=== PATIENT | female | born 1930 | race Caucasian/White ===

== ENCOUNTER 2019-01-04 04:57 | Emergency (ER) | payer MEDICARE ==
[2019-01-04] MEDS ORDERED: MORPHINE SULFATE 4 MG/ML SYRINGE IM STA (06:45)
--- NOTE | 2019-01-04 06:54 | XR ---
EXAM: XR Left Humerus, 2 or More Views CLINICAL HISTORY: patient fell TECHNIQUE: Frontal and lateral views of the left humerus. COMPARISON: No relevant prior studies available. FINDINGS: Bones/joints: Slightly comminuted and impacted fracture of the humeral neck. No dislocation. Diffuse demineralization of the bones. Deformities in the visualized upper left ribs likely chronic. Soft tissues: Unremarkable. IMPRESSION: Impacted comminuted humeral neck fracture. Diffuse osteopenia <MYCVCSECTION> Critical Value Communications 01/04/19 06:26 Verify Receipt Verified receipt with ER Clerk Mary for Dr. Cody on 01/04 06:26 (-05:00)
== END 2019-01-04 07:20 | disposition home or self-care (01) ==
LOC: EC 04:57
DX: S42.292A Other displaced fracture of upper end of left humerus, initial encounter for closed fracture (principal); W01.0XXA Fall on same level from slipping, tripping and stumbling without subsequent striking against object, initial encounter
CPT/HCPCS: 96372; 99283

== ENCOUNTER → 2019-01-08 | Outpatient (CLI) | payer MEDICARE ==
--- NOTE | 2019-01-08 08:22 | CT ---
EXAMINATION TYPE: CT shoulder LT wo con DATE OF EXAM: 01/08/2019 COMPARISON: None HISTORY: Left shoulder pain post fall. Known fracture. CT DLP: [address] of the left shoulder with reconstruction imaging. TECHNIQUE: Unenhanced CT of the left shoulder was performed with bone and soft tissue window settings submitted in the axial coronal and sagittal planes. At a separate workstation [id number] imaging was ob tained. FINDINGS: There is an impacted humeral neck fracture. Mild comminution noted. Fracture extends into the region of the greater tuberosity. Humeral head rotation noted. No additional fractures identified within the [id number]. Joint effusion identified. There is moderate AC joint arthropathy with lateral downsl oping of the acromion. No dislocation apparent. IMPRESSION: 1. Impacted right humeral neck fracture with greater tuberosity component and rotation humeral head.
== END ==
LOC: RADCTMAIN 07:27
PROVIDERS: ATTEND Orthopaedic Surgery
DX: S42.292A Other displaced fracture of upper end of left humerus, initial encounter for closed fracture (principal)

== ENCOUNTER 2019-07-07 05:02 | Inpatient (IN) | payer MEDICARE ==
--- NOTE | 2019-07-07 05:25 | ED ---
GI Bleed HPI - General Chief complaint: GI Bleed Stated complaint: GI Bleed Time Seen by Provider: 07/07/19 05:21 Source: patient Mode of arrival: ambulatory Limitations: no limitations - History of Present Illness Initial comments: This patient is an 88-year-old woman who presents to be evaluated for abdominal cramping and GI bleeding. The patient states that she had been out shopping and then about 6:30 PM noticed she was having abdominal cramping, which was diffuse and moderate intensity. When she returned home she started having a number of rounds of diarrhea and then noticed that there was some bright red blood that she was passing as well. She states this happened approximately 4 times. She has not noted any dark blood or clots. The patient denies symptoms of anemia, including no chest pain, dyspnea, diaphoresis, lightheadedness, palpitations or syncope. MD complaint: gross hematochezia -: hour(s) Radiation: none Quality: cramping Consistency: colicky Improves with: none Worsens with: none Associated Symptoms: abdominal pain - Related Data Home Medications Medication Instructions Recorded Confirmed Acarbose [Precose] 25 mg PO DAILY 07/07/19 07/07/19 Ezetimibe [Zetia] 10 mg PO DAILY 07/07/19 07/07/19 Pioglitazone [Actos] 30 mg PO DAILY 07/07/19 07/07/19 sitaGLIPtin [Januvia] 50 mg PO DAILY 07/07/19 07/07/19 Allergies Allergy/AdvReac Type Severity Reaction Status Date / Time No Known Allergies Allergy Verified 07/07/19 07:31 Review of Systems ROS Statement: Those systems with pertinent positive or pertinent negative responses have been documented in the HPI. ROS Other: All systems not noted in ROS Statement are negative. Constitutional: Denies: fever, chills, weakness Respiratory: Denies: cough, dyspnea Cardiovascular: Denies: chest pain, palpitations, syncope Gastrointestinal: Reports: abdominal pain, diarrhea, hematochezia. Denies: nausea, vomiting, hematemesis, melena Genitourinary: Denies: dysuria, hematuria Musculoskeletal: Denies: back pain Skin: Denies: rash Neurological: Denies: headache Hematological/Lymphatic: Denies: easy bleeding Past Medical History Past Medical History: Diabetes Mellitus History of Any Multi-Drug Resistant Organisms: None Reported Past Surgical History: No Surgical Hx Reported Past Psychological History: No Psychological Hx Reported Smoking Status: Never smoker Past Alcohol Use History: None Reported Past Drug Use History: None Reported - Past Family History Mother Family Medical History: Cancer Father Family Medical History: Cancer General Exam Limitations: no limitations General appearance: alert, in no apparent distress Head exam: Present: atraumatic, normocephalic Eye exam: Present: normal appearance. Absent: scleral icterus, conjunctival injection ENT exam: Present: normal oropharynx Respiratory exam: Present: normal lung sounds bilaterally. Absent: respiratory distress, wheezes, rales, rhonchi, stridor Cardiovascular Exam: Present: regular rate, normal rhythm, normal heart sounds. Absent: systolic murmur, diastolic murmur, rubs, gallop GI/Abdominal exam: Present: soft. Absent: distended, tenderness, guarding, rebound, rigid, mass Rectal exam: Present: normal inspection, normal rectal tone, heme (+) stool. Absent: mass, tenderness Extremities exam: Present: normal inspection, normal capillary refill. Absent: pedal edema, calf tenderness Back exam: Present: normal inspection. Absent: CVA tenderness (R), CVA tenderness (L) Skin exam: Present: warm, dry, intact, normal color. Absent: rash Course Vital Signs 07/07/19 07/07/19 07/07/19 05:07 05:23 05:30 Temperature 97.6 F Pulse Rate 90 87 92 Respiratory 18 13 6 L Rate Blood Pressure 153/95 O2 Sat by Pulse 100 Oximetry 07/07/19 07/07/19 07/07/19 06:00 06:21 06:30 Temperature 97.6 F Pulse Rate 75 81 79 Respiratory 15 18 14 Rate Blood Pressure 137/64 137/64 O2 Sat by Pulse 96 97 Oximetry 07/07/19 07/07/19 07/07/19 07:00 07:30 07:36 Temperature Pulse Rate 87 80 Respiratory 17 21 18 Rate Blood Pressure 137/64 138/59 139/59 O2 Sat by Pulse 98 97 97 Oximetry 07/07/19 07/07/19 07/07/19 08:00 08:30 09:00 Temperature Pulse Rate 80 73 75 Respiratory 20 16 14 Rate Blood Pressure 138/59 126/59 126/59 O2 Sat by Pulse 97 97 96 Oximetry 09/07/19 09/07/19 09/07/19 09:30 10:00 10:30 Temperature Pulse Rate 75 75 77 Respiratory 14 31 H 8 L Rate Blood Pressure 125/56 125/56 112/50 O2 Sat by Pulse 98 96 96 Oximetry 07/07/19 07/07/19 07/07/19 10:37 11:00 11:30 Temperature Pulse Rate 77 74 71 Respiratory 8 L 14 13 Rate Blood Pressure 112/50 112/50 111/49 O2 Sat by Pulse 96 95 97 Oximetry 07/07/19 11:51 Temperature Pulse Rate 77 Respiratory 8 L Rate Blood Pressure 112/50 O2 Sat by Pulse 96 Oximetry Medical Decision Making - Lab Data Result diagrams: 07/07/19 05:30 07/07/19 05:30 Lab Results 07/07/19 07/07/19 07/07/19 Range/Units 05:30 05:30 05:30 WBC 7.9 (3.8-10.6) k/uL RBC 4.06 (3.80-5.40) m/uL Hgb 13.0 (11.4-16.0) gm/dL Hct 38.9 (34.0-46.0) % MCV 95.9 (80.0-100.0) fL MCH 32.0 (25.0-35.0) pg MCHC 33.3 (31.0-37.0) g/dL RDW 15.4 (11.5-15.5) % Plt Count 179 (150-450) k/uL Neutrophils % 87 % Lymphocytes % 5 % Monocytes % 5 % Eosinophils % 1 % Basophils % 1 % Neutrophils # 6.9 (1.3-7.7) k/uL Lymphocytes # 0.4 L (1.0-4.8) k/uL Monocytes # 0.4 (0-1.0) k/uL Eosinophils # 0.1 (0-0.7) k/uL Basophils # 0.0 (0-0.2) k/uL PT (9.0-12.0) sec INR (<1.2) APTT (22.0-30.0) sec Sodium 137 (137-145) mmol/L Potassium 4.1 (3.5-5.1) mmol/L Chloride 99 (98-107) mmol/L Carbon Dioxide 26 (22-30) mmol/L Anion Gap 12 mmol/L BUN 21 H (7-17) mg/dL Creatinine 0.61 (0.52-1.04) mg/dL Est GFR (CKD-EPI)AfAm >90 (>60 ml/min/1.73 sqM) Est GFR (CKD-EPI)NonAf 82 (>60 ml/min/1.73 sqM) Glucose 262 H (74-99) mg/dL Plasma Lactic Acid Kd (0.7-2.0) mmol/L Calcium 10.1 (8.4-10.2) mg/dL Total Bilirubin 0.6 (0.2-1.3) mg/dL AST 27 (14-36) U/L ALT 26 (9-52) U/L Alkaline Phosphatase 59 (38-126) U/L Troponin I (0.000-0.034) ng/mL Total Protein 7.3 (6.3-8.2) g/dL Albumin 4.4 (3.5-5.0) g/dL Stool Occult Blood (Negative) Blood Type A Negative Blood Type Confirm Blood Type Recheck No Previous Record Bld Type Recheck Status CABO Indicated Antibody Screen POSITIVE Antibody Identification Anti-D Antigen Identification C Antigen - NEGATIVE Direct Antiglob Test Negative Spec Expiration Date 07/10/2019232907/07/19 07/07/19 07/07/19 Range/Units 05:30 05:30 05:30 WBC (3.8-10.6) k/uL RBC (3.80-5.40) m/uL Hgb (11.4-16.0) gm/dL Hct (34.0-46.0) % MCV (80.0-100.0) fL MCH (25.0-35.0) pg MCHC (31.0-37.0) g/dL RDW (11.5-15.5) % Plt Count (150-450) k/uL Neutrophils % % Lymphocytes % % Monocytes % % Eosinophils % % Basophils % % Neutrophils # (1.3-7.7) k/uL Lymphocytes # (1.0-4.8) k/uL Monocytes # (0-1.0) k/uL Eosinophils # (0-0.7) k/uL Basophils # (0-0.2) k/uL PT 10.9 (9.0-12.0) sec INR 1.0 (<1.2) APTT 23.9 (22.0-30.0) sec Sodium (137-145) mmol/L Potassium (3.5-5.1) mmol/L Chloride (98-107) mmol/L Carbon Dioxide (22-30) mmol/L Anion Gap mmol/L BUN (7-17) mg/dL Creatinine (0.52-1.04) mg/dL Est GFR (CKD-EPI)AfAm (>60 ml/min/1.73 sqM) Est GFR (CKD-EPI)NonAf (>60 ml/min/1.73 sqM) Glucose (74-99) mg/dL Plasma Lactic Acid Kd 2.0 (0.7-2.0) mmol/L Calcium (8.4-10.2) mg/dL Total Bilirubin (0.2-1.3) mg/dL AST (14-36) U/L ALT (9-52) U/L Alkaline Phosphatase (38-126) U/L Troponin I <0.012 (0.000-0.034) ng/mL Total Protein (6.3-8.2) g/dL Albumin (3.5-5.0) g/dL Stool Occult Blood (Negative) Blood Type Blood Type Confirm Blood Type Recheck Bld Type Recheck Status Antibody Screen Antibody Identification Antigen Identification Direct Antiglob Test Spec Expiration Date 07/07/19 07/07/19 Range/Units 05:33 05:45 WBC (3.8-10.6) k/uL RBC (3.80-5.40) m/uL Hgb (11.4-16.0) gm/dL Hct (34.0-46.0) % MCV (80.0-100.0) fL MCH (25.0-35.0) pg MCHC (31.0-37.0) g/dL RDW (11.5-15.5) % Plt Count (150-450) k/uL Neutrophils % % Lymphocytes % % Monocytes % % Eosinophils % % Basophils % % Neutrophils # (1.3-7.7) k/uL Lymphocytes # (1.0-4.8) k/uL Monocytes # (0-1.0) k/uL Eosinophils # (0-0.7) k/uL Basophils # (0-0.2) k/uL PT (9.0-12.0) sec INR (<1.2) APTT (22.0-30.0) sec Sodium (137-145) mmol/L Potassium (3.5-5.1) mmol/L Chloride (98-107) mmol/L Carbon Dioxide (22-30) mmol/L Anion Gap mmol/L BUN (7-17) mg/dL Creatinine (0.52-1.04) mg/dL Est GFR (CKD-EPI)AfAm (>60 ml/min/1.73 sqM) Est GFR (CKD-EPI)NonAf (>60 ml/min/1.73 sqM) Glucose (74-99) mg/dL Plasma Lactic Acid Kd (0.7-2.0) mmol/L Calcium (8.4-10.2) mg/dL Total Bilirubin (0.2-1.3) mg/dL AST (14-36) U/L ALT (9-52) U/L Alkaline Phosphatase (38-126) U/L Troponin I (0.000-0.034) ng/mL Total Protein (6.3-8.2) g/dL Albumin (3.5-5.0) g/dL Stool Occult Blood Positive H (Negative) Blood Type Blood Type Confirm A Negative Blood Type Recheck Bld Type Recheck Status Antibody Screen Antibody Identification Antigen Identification Direct Antiglob Test Spec Expiration Date - EKG Data -: EKG Interpreted by Oh EKG shows normal: sinus rhythm, axis (Normal), intervals (Normal), QRS complexes (Normal), ST-T waves (Normal) Rate: normal (94 bpm) Interpretation: normal EKG Disposition Clinical Impression: Gastrointestinal hemorrhage Disposition: ADMITTED IP TO THIS [facility] Condition: Fair
[2019-07-07 06:00] LABS: Basophils % (A) 1 %; Eosinophils # (A) 0.1 k/uL (0-0.7); Eosinophils % (A) 1 %; HCT 38.9 % (34.0-46.0); Lymphocytes # (A) 0.4 k/uL (1.0-4.8); Lymphocytes % (A) 5 %; MCHC 33.3 g/dL (31.0-37.0); MCV 95.9 fL (80.0-100.0); Mean Platelet Volume 7.7; Monocytes # (A) 0.4 k/uL (0-1.0); Monocytes % (A) 5 %; Neutrophils # (A) 6.9 k/uL (1.3-7.7); Neutrophils % (A) 87 %; Platelet Count 179 k/uL (150-450); RBC 4.06 m/uL (3.80-5.40); RDW 15.4 % (11.5-15.5); WBC 7.9 k/uL (3.8-10.6)
[2019-07-07 06:13] LABS: ALT 26 U/L (9-52); AST 27 U/L (14-36); African American GFR (CKD) >90 (>60 ml/min/1.73 sqM); Albumin 4.4 g/dL (3.5-5.0); Alkaline Phosphatase 59 U/L (38-126); Anion Gap 12 mmol/L; Blood Urea Nitrogen 21 mg/dL (7-17); Calcium 10.1 mg/dL (8.4-10.2); Carbon Dioxide 26 mmol/L (22-30); Chloride 99 mmol/L (98-107); Glucose 262 mg/dL (74-99); Potassium 4.1 mmol/L (3.5-5.1); Sodium 137 mmol/L (137-145); Total Bilirubin 0.6 mg/dL (0.2-1.3); Total Protein 7.3 g/dL (6.3-8.2)
[2019-07-07 06:20] LABS: Partial Thromboplastin Time 23.9 sec (22.0-30.0); Prothrombin Time 10.9 sec (9.0-12.0)
[2019-07-07] MEDS ORDERED: ONDANSETRON 4 MG/2 ML VIAL IVP PRN (07:08)
[2019-07-07] MEDS ORDERED: ACETAMINOPHEN TAB 325 MG TAB PO PRN (07:08)
[2019-07-07] MEDS ORDERED: NALOXONE 0.4 MG/ML 1 ML VIAL IV PRN (07:08)
[2019-07-07] MEDS ORDERED: MORPHINE SULFATE 4 MG/ML SYRINGE IV PRN (07:08)
[2019-07-07] MEDS: SODIUM CHLORIDE 0.9% 1,000 ML IV SCH ×2 (10:30→18:05)
[2019-07-07] MEDS: PANTOPRAZOLE 40 MG/10 ML VIAL IV SCH (10:32)
[2019-07-07 13:22] LABS: Glucose,Whole Blood 128 mg/dL (75-99)
[2019-07-07 13:26] VITALS: RESP 16
[2019-07-07 17:42] LABS: Glucose,Whole Blood 128 mg/dL (75-99)
[2019-07-07] MEDS: INSULIN ASPART (NovoLOG) 100 UNIT/ML VIAL SQ SCH ×2 (17:48→21:03)
[2019-07-07 20:56] LABS: Glucose,Whole Blood 191 mg/dL (75-99)
[2019-07-08] MEDS: SODIUM CHLORIDE 0.9% 1,000 ML IV SCH ×2 (04:42→13:00)
[2019-07-08 07:21] LABS: Glucose,Whole Blood 110 mg/dL (75-99)
[2019-07-08] MEDS: INSULIN ASPART (NovoLOG) 100 UNIT/ML VIAL SQ SCH ×4 (07:48→21:24)
[2019-07-08] MEDS: PANTOPRAZOLE 40 MG/10 ML VIAL IV SCH (07:54)
[2019-07-08 08:51] LABS: Basophils % (A) 0 %; Eosinophils # (A) 0.1 k/uL (0-0.7); Eosinophils % (A) 2 %; HCT 37.3 % (34.0-46.0); Lymphocytes # (A) 0.7 k/uL (1.0-4.8); Lymphocytes % (A) 10 %; MCH 31.5 pg (25.0-35.0); MCHC 32.1 g/dL (31.0-37.0); MCV 98.3 fL (80.0-100.0); Macrocytosis Slight; Mean Platelet Volume 7.7; Monocytes # (A) 0.4 k/uL (0-1.0); Monocytes % (A) 5 %; Neutrophils # (A) 6.3 k/uL (1.3-7.7); Neutrophils % (A) 82 %; Platelet Count 177 k/uL (150-450); RBC 3.79 m/uL (3.80-5.40); RDW 15.6 % (11.5-15.5); WBC 7.7 k/uL (3.8-10.6)
[2019-07-08 09:00] LABS: African American GFR (CKD) >90 (>60 ml/min/1.73 sqM); Anion Gap 7 mmol/L; Blood Urea Nitrogen 13 mg/dL (7-17); Calcium 9.1 mg/dL (8.4-10.2); Carbon Dioxide 27 mmol/L (22-30); Chloride 108 mmol/L (98-107); Glucose 150 mg/dL (74-99); Potassium 3.8 mmol/L (3.5-5.1); Sodium 142 mmol/L (137-145)
[2019-07-08 11:45] LABS: Glucose,Whole Blood 229 mg/dL (75-99)
--- NOTE | 2019-07-08 12:44 | P.HPIM ---
History of Present Illness H&P Date: 07/07/19 Chief Complaint: Abdominal cramps/hematochezia 88-year-old woman who presents to be evaluated for abdominal cramping and GI bleeding. The patient states that she had been out shopping and then about 6:30 PM noticed she was having abdominal cramping, which was diffuse and moderate intensity. When she returned home she started having a number of rounds of diarrhea and then noticed that there was some bright red blood that she was passing as well. She states this happened approximately 4 times. She has not noted any dark blood or clots. The patient denies symptoms of anemia, including no chest pain, dyspnea, diaphoresis, lightheadedness, palpitations or synco Review of Systems Constitutional: Denies: fever, chills, weakness Respiratory: Denies: cough, dyspnea Cardiovascular: Denies: chest pain, palpitations, syncope Gastrointestinal: Reports: abdominal pain, diarrhea, hematochezia. Denies: nausea, vomiting, hematemesis, melena Genitourinary: Denies: dysuria, hematuria Musculoskeletal: Denies: back pain Skin: Denies: rash Neurological: Denies: headache Hematological/Lymphatic: Denies: easy bleeding Past Medical History Past Medical History: Diabetes Mellitus History of Any Multi-Drug Resistant Organisms: None Reported Past Surgical History: No Surgical Hx Reported Past Psychological History: No Psychological Hx Reported Smoking Status: Never smoker Past Alcohol Use History: None Reported Past Drug Use History: None Reported - Past Family History Mother Family Medical History: Cancer Father Family Medical History: Cancer Medications and Allergies Home Medications Medication Instructions Recorded Confirmed Type Acarbose [Precose] 25 mg PO DAILY 07/07/19 07/07/19 History Ezetimibe [Zetia] 10 mg PO DAILY 07/07/19 07/07/19 History Pioglitazone [Actos] 30 mg PO DAILY 07/07/19 07/07/19 History sitaGLIPtin [Januvia] 50 mg PO DAILY 07/07/19 07/07/19 History Allergies Allergy/AdvReac Type Severity Reaction Status Date / Time No Known Allergies Allergy Verified 07/07/19 07:31 Physical Exam Vitals: Vital Signs Temp Pulse Resp BP Pulse Ox 07/07/19 11:51 77 8 L 112/50 96 07/07/19 11:30 71 13 111/49 97 07/07/19 11:00 74 14 112/50 95 07/07/19 10:37 77 8 L 112/50 96 07/07/19 10:30 77 8 L 112/50 96 07/07/19 10:00 75 31 H 125/56 96 07/07/19 09:30 75 14 125/56 98 07/07/19 09:00 75 14 126/59 96 07/07/19 08:30 73 16 126/59 97 07/07/19 08:00 80 20 138/59 97 07/07/19 07:36 80 18 139/59 97 07/07/19 07:30 21 138/59 97 07/07/19 07:00 87 17 137/64 98 07/07/19 06:30 79 14 137/64 97 07/07/19 06:21 97.6 F 81 18 137/64 96 07/07/19 06:00 75 15 07/07/19 05:30 92 6 L 07/07/19 05:23 87 13 07/07/19 05:07 97.6 F 90 18 153/95 100 Intake and Output 07/06/19 07/07/19 07/07/19 22:59 06:59 14:59 Other: Weight 55.338 kg General appearance: alert, in no apparent distress Head exam: Present: atraumatic, normocephalic Eye exam: Present: normal appearance. Absent: scleral icterus, conjunctival injection ENT exam: Present: normal oropharynx Respiratory exam: Present: normal lung sounds bilaterally. Absent: respiratory distress, wheezes, rales, rhonchi, stridor Cardiovascular Exam: Present: regular rate, normal rhythm, normal heart sounds. Absent: systolic murmur, diastolic murmur, rubs, gallop GI/Abdominal exam: Present: soft. Absent: distended, tenderness, guarding, rebound, rigid, mass Rectal exam: Present: normal inspection, normal rectal tone, heme (+) stool. Absent: mass, tenderness Extremities exam: Present: normal inspection, normal capillary refill. Absent: pedal edema, calf tenderness Back exam: Present: normal inspection. Absent: CVA tenderness (R), CVA tenderness (L) Skin exam: Present: warm, dry, intact, normal color. Absent: rash Results CBC & Chem 7: 07/08/19 08:14 07/08/19 08:14 Labs: Abnormal Lab Results - Last 24 Hours (Table) 07/07/19 07/07/19 07/07/19 Range/Units 05:30 05:30 05:45 Lymphocytes # 0.4 L (1.0-4.8) k/uL BUN 21 H (7-17) mg/dL Glucose 262 H (74-99) mg/dL Stool Occult Blood Positive H (Negative) Assessment and Plan Assessment: 1. GI bleed - Start patient on Protonix 40 mg IV daily; monitor H&H closely; consult GI for further recommendations - Type crossmatch and transfuse packed RBCs if hemoglobin is less than 8.0 2. Diabetes mellitus type 2/hyperglycemia - We will restart home dose of Tradjent, Precose 25 mg before meals breakfast and Actos; monitor Accu-Cheks every before meals and at bedtime with insulin sliding scale 3. Hyperlipidemia; Zetia 10 mg daily at bedtime 4. Mild renal insufficiency; continue with IV fluids in form of normal saline at a rate of 100 mL an hour; monitor strict VICENTE's, renal function and electrolytes; avoid hypotension and nephrotoxins 5. DVT prophylaxis; SCDs only due to GI bleed CODE STATUS; full code Time with Patient: Greater than 30
[2019-07-08 14:44] LABS: Basophils % (A) 0 %; Eosinophils % (A) 1 %; HCT 32.6 % (34.0-46.0); HGB 10.7 gm/dL (11.4-16.0); Lymphocytes # (A) 0.9 k/uL (1.0-4.8); Lymphocytes % (A) 13 %; MCH 31.7 pg (25.0-35.0); MCHC 32.7 g/dL (31.0-37.0); MCV 96.8 fL (80.0-100.0); Mean Platelet Volume 8.2; Monocytes # (A) 0.4 k/uL (0-1.0); Monocytes % (A) 6 %; Neutrophils # (A) 5.1 k/uL (1.3-7.7); Neutrophils % (A) 79 %; Platelet Count 142 k/uL (150-450); RBC 3.37 m/uL (3.80-5.40); RDW 14.5 % (11.5-15.5); WBC 6.5 k/uL (3.8-10.6)
--- NOTE | 2019-07-08 16:40 | P.PN ---
Subjective Progress Note Date: 07/08/19 Principal diagnosis: GI bleed 88-year-old woman who presents to be evaluated for abdominal cramping and GI bleeding. The patient states that she had been out shopping and then about 6:30 PM noticed she was having abdominal cramping, which was diffuse and moderate intensity. When she returned home she started having a number of rounds of diarrhea and then noticed that there was some bright red blood that she was passing as well. She states this happened approximately 4 times. She has not noted any dark blood or clots. 07/08/2019 Patient is seen and evaluated in the room at bedside; continues to have small amounts of bloody bowel movements vital signs are stable with a temp of 98, pulse 82, respirations 16 and blood pressure of 124/67 Labs are reviewed and patient demonstrated drop of hemoglobin from 12.0 this morning to 10.7 We will continue to monitor H&H every 6 hours and type crossmatch and transfuse if hemoglobin is less than 8; GI is on board and no plan for EGD/colonoscopy; GI felt evaluate again tomorrow for further recommendations Patient remains on IV Protonix Objective - Vital Signs Vital signs: Vital Signs Temp 97.8 F 07/08/19 07:00 Pulse 76 07/08/19 07:00 Resp 16 07/08/19 07:00 BP 119/63 07/08/19 07:00 Pulse Ox 99 07/08/19 07:00 Intake & Output 07/07/19 07/08/19 07/08/19 18:59 06:59 18:59 Intake Total 580 Output Total 2 Balance -2 580 Intake: Oral 580 Output: Stool 2 Other: # Voids 2 3 1 # Bowel Movements 2 1 - Exam Head exam: Present: atraumatic, normocephalic Eye exam: Present: normal appearance. Absent: scleral icterus, conjunctival injection ENT exam: Present: normal oropharynx Respiratory exam: Present: normal lung sounds bilaterally. Absent: respiratory distress, wheezes, rales, rhonchi, stridor Cardiovascular Exam: Present: regular rate, normal rhythm, normal heart sounds. Absent: systolic murmur, diastolic murmur, rubs, gallop GI/Abdominal exam: Present: soft. Absent: distended, tenderness, guarding, rebound, rigid, mass Rectal exam: Present: normal inspection, normal rectal tone, heme (+) stool. Absent: mass, tenderness Extremities exam: Present: normal inspection, normal capillary refill. Absent: pedal edema, calf tenderness Back exam: Present: normal inspection. Absent: CVA tenderness (R), CVA tenderness (L) Skin exam: Present: warm, dry, intact, normal color. Absent: rash - Labs CBC & Chem 7: 07/08/19 14:26 07/08/19 08:14 Labs: Abnormal Lab Results - Last 24 Hours (Table) 07/07/19 07/07/19 07/07/19 Range/Units 13:05 17:09 20:52 RBC (3.80-5.40) m/uL RDW (11.5-15.5) % Lymphocytes # (1.0-4.8) k/uL Chloride (98-107) mmol/L Glucose (74-99) mg/dL POC Glucose (mg/dL) 128 H 128 H 191 H (75-99) mg/dL 07/08/19 07/08/19 07/08/19 Range/Units 07:04 08:14 08:14 RBC 3.79 L (3.80-5.40) m/uL RDW 15.6 H (11.5-15.5) % Lymphocytes # 0.7 L (1.0-4.8) k/uL Chloride 108 H (98-107) mmol/L Glucose 150 H (74-99) mg/dL POC Glucose (mg/dL) 110 H (75-99) mg/dL 07/08/19 Range/Units 11:28 RBC (3.80-5.40) m/uL RDW (11.5-15.5) % Lymphocytes # (1.0-4.8) k/uL Chloride (98-107) mmol/L Glucose (74-99) mg/dL POC Glucose (mg/dL) 229 H (75-99) mg/dL Assessment and Plan Assessment: 1. GI bleed - Start patient on Protonix 40 mg IV daily; monitor H&H closely; consult GI for further recommendations - Type crossmatch and transfuse packed RBCs if hemoglobin is less than 8.0 2. Diabetes mellitus type 2/hyperglycemia - We will restart home dose of Tradjent, Precose 25 mg before meals breakfast and Actos; monitor Accu-Cheks every before meals and at bedtime with insulin sliding scale 3. Hyperlipidemia; Zetia 10 mg daily at bedtime 4. Mild renal insufficiency; continue with IV fluids in form of normal saline at a rate of 100 mL an hour; monitor strict VICENTE's, renal function and electrolytes; avoid hypotension and nephrotoxins 5. DVT prophylaxis; SCDs only due to GI bleed CODE STATUS; full code Time with Patient: Greater than 30
[2019-07-08 17:19] LABS: Glucose,Whole Blood 92 mg/dL (75-99)
--- NOTE | 2019-07-08 17:59 | P.CONS ---
History of Present Illness - Reason for Consult Consult date: 07/07/19 Blood per rectum Requesting physician: Robb Jovel - Chief Complaint Blood per rectum - History of Present Illness 88-year-old female with a medical history significant for hyperlipidemia, diabetes mellitus who presents to the hospital with complaints of blood. The patient reports constipation at her baseline and initially passed a hard bowel movement. This was followed by multiple episodes of loose nonbloody stool. After this she reports 2 episodes of bright red blood prior to presentation to the hospital. At home she is on low-dose aspirin but denies any use of other NSAID medications and will occasionally take Tylenol as needed for pain. She does report family history of bowel cancer in her mother and pancreatic cancer in her father. She also reports a remote history of colonoscopy approximately 10 years ago. She denies any abdominal pain but did have some cramping prior to the bowel movements. No prior EGD reported. Hemoglobin on presentation was 13 and subsequently found to be 12. She reports some darker bowel movements after presentation but no further gross bleeding. Review of Systems REVIEW OF SYSTEMS: CONSTITUTIONAL: Denies any fevers, chills, weight change or fatigue. CARDIOVASCULAR: Denies any chest pain, palpitations high or low blood pressures RESPIRATORY: Denies any shortness of breath, hemoptysis or cough. GENITOURINARY: No dysuria or hematuria, but does report history of cystocele. MUSCULOSKELETAL: No weakness reported. SKIN: Denies any new rashes or lesions, jaundice or pallor. PSYCHIATRIC: Denies any depression or anxiety. NEUROLOGY: Denies headache, denies any new focal deficits. EARS/NOSE/THROAT: No recent hearing change, congestion, nasal discharge or sore throat. EYES: No pain in eyes, discharge or change in vision. GASTROINTESTINAL: As per HPI. Past Medical History Past Medical History: Cancer, Diabetes Mellitus, Hyperlipidemia Additional Past Medical History / Comment(s): skin CA History of Any Multi-Drug Resistant Organisms: None Reported Past Surgical History: Appendectomy, Heart Catheterization, Hysterectomy Additional Past Surgical History / Comment(s): skin CA removal. Past Anesthesia/Blood Transfusion Reactions: No Reported Reaction Past Psychological History: No Psychological Hx Reported Smoking Status: Never smoker Past Alcohol Use History: None Reported Past Drug Use History: None Reported - Past Family History Mother Family Medical History: Cancer Father Family Medical History: Cancer Medications and Allergies Home Medications Medication Instructions Recorded Confirmed Type Acarbose [Precose] 25 mg PO DAILY 07/07/19 07/07/19 History Ezetimibe [Zetia] 10 mg PO DAILY 07/07/19 07/07/19 History Pioglitazone [Actos] 30 mg PO DAILY 07/07/19 07/07/19 History sitaGLIPtin [Januvia] 50 mg PO DAILY 07/07/19 07/07/19 History Allergies Allergy/AdvReac Type Severity Reaction Status Date / Time No Known Allergies Allergy Verified 07/07/19 07:31 Physical Exam Vitals: Vital Signs Temp Pulse Pulse Resp BP BP Pulse Ox 07/07/19 18:33 98.4 F 77 16 112/50 98 07/07/19 13:03 98.4 F 83 16 133/70 98 07/07/19 11:51 77 8 L 112/50 96 07/07/19 11:30 71 13 111/49 97 07/07/19 11:00 74 14 112/50 95 07/07/19 10:37 77 8 L 112/50 96 07/07/19 10:30 77 8 L 112/50 96 07/07/19 10:00 75 31 H 125/56 96 07/07/19 09:30 75 14 125/56 98 07/07/19 09:00 75 14 126/59 96 07/07/19 08:30 73 16 126/59 97 07/07/19 08:00 80 20 138/59 97 07/07/19 07:36 80 18 139/59 97 07/07/19 07:30 21 138/59 97 07/07/19 07:00 87 17 137/64 98 07/07/19 06:30 79 14 137/64 97 07/07/19 06:21 97.6 F 81 18 137/64 96 07/07/19 06:00 75 15 07/07/19 05:30 92 6 L 07/07/19 05:23 87 13 07/07/19 05:07 97.6 F 90 18 153/95 100 Intake and Output 07/07/19 07/07/19 07/08/19 14:59 22:59 06:59 Other: # Voids 1 2 # Bowel Movements 2 On physical examination, patient appears comfortable in no apparent distress. HEAD: Normocephalic, atraumatic. EYES: No scleral icterus. No conjunctival injection. MOUTH: No lesions, tongue midline. NECK: Trachea midline, no gross abnormalities. CHEST: Clear to auscultation with no wheezing or rhonchi appreciated. HEART: Regular rate and rhythm. ABDOMEN: Soft. Bowel sounds are positive. No organomegaly. No guarding or rigidity. EXTREMITIES: No pedal edema. SKIN: No rashes, no jaundice. NEUROLOGIC: Alert and oriented x3. No focal deficits. Results CBC & Chem 7: 07/08/19 14:26 07/08/19 08:14 Labs: Abnormal Lab Results - Last 24 Hours (Table) 07/07/19 07/07/19 07/07/19 Range/Units 05:30 05:30 05:45 Lymphocytes # 0.4 L (1.0-4.8) k/uL BUN 21 H (7-17) mg/dL Glucose 262 H (74-99) mg/dL POC Glucose (mg/dL) (75-99) mg/dL Stool Occult Blood Positive H (Negative) 07/07/19 07/07/19 07/07/19 Range/Units 13:05 17:09 20:52 Lymphocytes # (1.0-4.8) k/uL BUN (7-17) mg/dL Glucose (74-99) mg/dL POC Glucose (mg/dL) 128 H 128 H 191 H (75-99) mg/dL Stool Occult Blood (Negative) Assessment and Plan (1) Gastrointestinal hemorrhage Narrative/Plan: 88-year-old female who presented after initially passing a hard stool, then loose stool, and then 2 episodes of gross bright red blood per rectum. She denies any prior episodes, excessive use of NSAID medications reporting that she'll only takes a low dose aspirin, or any pain with the episode stating she only had some cramping. Last colonoscopy approximately 10 years ago. She does have concerns over having further endoscopic evaluations given a cystocele. At baseline she reports chronic constipation. Hemoglobin was 13 on presentation and subsequently found to be 12. Overall presentation is suspicious for p erirectal disease, differential also including AVM, diverticulosis or other etiology. Current Visit: Yes Status: Acute Code(s): K92.2 - GASTROINTESTINAL HEMORRHAGE, UNSPECIFIED SNOMED Code(s): 84067484 (2) Altered bowel function Current Visit: Yes Status: Acute Code(s): R19.8 - OTH SYMPTOMS AND SIGNS INVOLVING THE DGSTV SYS AND ABDOMEN SNOMED Code(s): 68504003 (3) Chronic constipation Current Visit: Yes Status: Acute Code(s): K59.09 - OTHER CONSTIPATION SNOMED Code(s): 153020987 Plan: Supportive care Okay for liquid diet Continue to monitor hemoglobin and transfuse as needed Testing for Clostridium difficile negative Will start local hemorrhoidal treatment with Anusol nightly Eventually patient will need bowel regimen on discharge, with recommendation for MiraLAX nightly At this time patient is not interested in endoscopic evaluation and would like to continue with conservative management, however if bleeding continues we will reevaluate at that time Thank you for allowing us to participate in the care of the patient, we will continue to follow
--- NOTE | 2019-07-08 18:04 | P.PN ---
Subjective Progress Note Date: 07/08/19 Principal diagnosis: Hematochezia, anemia of acute blood loss Gross blood per rectum but did have some maroon colored to dark stool today with 2 episodes reported. Objective - Vital Signs Vital signs: Vital Signs Temp 98.0 F 07/08/19 13:08 Pulse 82 07/08/19 15:52 Resp 16 07/08/19 15:52 BP 124/67 07/08/19 13:08 Pulse Ox 97 07/08/19 13:08 Intake & Output 07/07/19 07/08/19 07/08/19 18:59 06:59 18:59 Intake Total 980 Output Total 2 2 Balance -2 978 Intake: Oral 980 Output: Stool 2 2 Other: # Voids 2 3 1 # Bowel Movements 2 2 - Exam On physical examination, patient appears comfortable in no apparent distress. HEAD: Normocephalic, atraumatic. EYES: No scleral icterus. No conjunctival injection. MOUTH: No lesions, tongue midline. NECK: Trachea midline, no gross abnormalities. CHEST: Clear to auscultation with no wheezing or rhonchi appreciated. HEART: Regular rate and rhythm. ABDOMEN: Soft. Bowel sounds are positive. No organomegaly. No guarding or rigidity. EXTREMITIES: No pedal edema. SKIN: No rashes, no jaundice. NEUROLOGIC: Alert and oriented x3. No focal deficits. - Labs CBC & Chem 7: 07/08/19 14:26 07/08/19 08:14 Labs: Abnormal Lab Results - Last 24 Hours (Table) 07/07/19 07/08/19 07/08/19 Range/Units 20:52 07:04 08:14 RBC (3.80-5.40) m/uL Hgb (11.4-16.0) gm/dL Hct (34.0-46.0) % RDW (11.5-15.5) % Plt Count (150-450) k/uL Lymphocytes # (1.0-4.8) k/uL Chloride 108 H (98-107) mmol/L Glucose 150 H (74-99) mg/dL POC Glucose (mg/dL) 191 H 110 H (75-99) mg/dL 07/08/19 07/08/19 07/08/19 Range/Units 08:14 11:28 14:26 RBC 3.79 L 3.37 L (3.80-5.40) m/uL Hgb 10.7 L (11.4-16.0) gm/dL Hct 32.6 L (34.0-46.0) % RDW 15.6 H (11.5-15.5) % Plt Count 142 L (150-450) k/uL Lymphocytes # 0.7 L 0.9 L (1.0-4.8) k/uL Chloride (98-107) mmol/L Glucose (74-99) mg/dL POC Glucose (mg/dL) 229 H (75-99) mg/dL Assessment and Plan (1) Gastrointestinal hemorrhage Narrative/Plan: 88-year-old female who presented after initially passing a hard stool, then loose stool, and then 2 episodes of gross bright red blood per rectum. She denies any prior episodes, excessive use of NSAID medications reporting that she'll only takes a low dose aspirin, or any pain with the episode stating she only had some cramping. Last colonoscopy approximately 10 years ago. She does have concerns over having further endoscopic evaluations given a cystocele. At baseline she reports chronic constipation. Hemoglobin was 13 on presentation and subsequently found to be 12, and fell to 10.7 today. Overall presentation is suspicious for perirectal disease, differential also including AVM, diverticulosis or other etiology. Current Visit: Yes Status: Acute Code(s): K92.2 - GASTROINTESTINAL HEMORRHAGE, UNSPECIFIED SNOMED Code(s): 53256474 (2) Altered bowel function Current Visit: Yes Status: Acute Code(s): R19.8 - OTH SYMPTOMS AND SIGNS INVOLVING THE DGSTV SYS AND ABDOMEN SNOMED Code(s): 10337935 (3) Chronic constipation Current Visit: Yes Status: Acute Code(s): K59.09 - OTHER CONSTIPATION SNOMED Code(s): 721498750 Plan: Supportive care Okay for diabetic, GI soft diet Continue to monitor hemoglobin and transfuse as needed Testing for Clostridium difficile negative Anusol nightly Eventually patient will need bowel regimen on discharge, with recommendation for MiraLAX nightly At this time patient is not interested in endoscopic evaluation and would like to continue with conservative management, however if bleeding continues we will reevaluate at that time Thank you for allowing us to participate in the care of the patient, we will continue to follow
[2019-07-08 20:42] LABS: Basophils % (A) 0 %; Eosinophils % (A) 1 %; HCT 33.1 % (34.0-46.0); HGB 10.7 gm/dL (11.4-16.0); Lymphocytes # (A) 0.7 k/uL (1.0-4.8); Lymphocytes % (A) 12 %; MCH 31.4 pg (25.0-35.0); MCHC 32.4 g/dL (31.0-37.0); Mean Platelet Volume 7.4; Monocytes # (A) 0.3 k/uL (0-1.0); Monocytes % (A) 5 %; Neutrophils % (A) 81 %; Platelet Count 156 k/uL (150-450); RBC 3.42 m/uL (3.80-5.40); RDW 14.4 % (11.5-15.5); WBC 6.2 k/uL (3.8-10.6)
[2019-07-08 21:09] LABS: Glucose,Whole Blood 172 mg/dL (75-99)
[2019-07-09 02:51] LABS: Basophils % (A) 0 %; Eosinophils # (A) 0.1 k/uL (0-0.7); Eosinophils % (A) 2 %; HCT 28.5 % (34.0-46.0); HGB 9.5 gm/dL (11.4-16.0); Lymphocytes # (A) 0.9 k/uL (1.0-4.8); Lymphocytes % (A) 18 %; MCH 32.4 pg (25.0-35.0); MCHC 33.2 g/dL (31.0-37.0); MCV 97.6 fL (80.0-100.0); Monocytes # (A) 0.3 k/uL (0-1.0); Monocytes % (A) 6 %; Neutrophils # (A) 3.7 k/uL (1.3-7.7); Neutrophils % (A) 72 %; Platelet Count 126 k/uL (150-450); RBC 2.92 m/uL (3.80-5.40); RDW 15.9 % (11.5-15.5); WBC 5.1 k/uL (3.8-10.6)
[2019-07-09] MEDS: SODIUM CHLORIDE 0.9% 1,000 ML IV SCH ×2 (04:32→10:19)
[2019-07-09] MEDS ORDERED: ACARBOSE 25 MG TAB PO SCH (07:30)
[2019-07-09 07:35] LABS: Glucose,Whole Blood 105 mg/dL (75-99)
[2019-07-09] MEDS: INSULIN ASPART (NovoLOG) 100 UNIT/ML VIAL SQ SCH ×2 (07:40→12:07)
[2019-07-09] MEDS: PANTOPRAZOLE 40 MG/10 ML VIAL IV SCH (07:46)
[2019-07-09] MEDS ORDERED: HYDROCORTISONE SUPPOSITORY 25 MG SUPP RECTAL SCH (09:00)
[2019-07-09] MEDS ORDERED: EZETIMIBE 10 MG TAB PO SCH (09:00)
[2019-07-09] MEDS ORDERED: PIOGLITAZONE 30 MG TAB PO SCH (09:00)
[2019-07-09] MEDS ORDERED: LINAGLIPTIN 5 MG TABLET PO SCH (09:00)
[2019-07-09 10:00] LABS: Anisocytosis Slight; Basophils % (A) 1 %; Eosinophils # (A) 0.1 k/uL (0-0.7); Eosinophils % (A) 3 %; Lymphocytes # (A) 0.7 k/uL (1.0-4.8); Lymphocytes % (A) 14 %; MCH 32.5 pg (25.0-35.0); MCHC 33.3 g/dL (31.0-37.0); MCV 97.6 fL (80.0-100.0); Mean Platelet Volume 7.7; Monocytes # (A) 0.2 k/uL (0-1.0); Monocytes % (A) 5 %; Neutrophils # (A) 3.6 k/uL (1.3-7.7); Neutrophils % (A) 77 %; Platelet Count 131 k/uL (150-450); RBC 3.08 m/uL (3.80-5.40); RDW 16.1 % (11.5-15.5); WBC 4.7 k/uL (3.8-10.6)
[2019-07-09 11:43] LABS: Glucose,Whole Blood 167 mg/dL (75-99)
[2019-07-09 14:02] VITALS: BP 146/81; PULSE 81; TEMP 98.2
--- NOTE | 2019-07-10 08:57 | P.DS ---
Providers Date of admission: 07/09/19 12:58 Expected date of discharge: 07/10/19 Attending physician: Oliverio Luna Primary care physician: Stated None Hospital Course: Final diagnosis GI bleed Diabetes mellitus type 2, uncontrolled hyperglycemia Hyperlipidemia Mild renal insufficiency DVT prophylaxis Full code Discharge disposition Patient is being discharged in stable condition with guarded prognosis to home and will follow-up with primary care in the outpatient setting this week. Patient may follow-up with gastroenterology in the outpatient setting. History of present illness This is an 88-year-old woman who presented with abdominal cramping and GI bleeding and was being closely monitored. Patient states that she was having a lot of diarrhea with some bright red blood prior to admission and is what prompted her to come here. Patient states that she has not had a bowel movement now in a day in the abdominal cramping has minimized. C. diff was negative. She states that she occasionally has some left lower abdominal cramping that feels like gas. Patient states that she is passing gas. Patient denies any nausea or vomiting and is tolerating diet. Patient currently denies any chest pain, shortness of breath, or palpitations at this time. Patient has remained afebrile. Patient will go home on oral Protonix. Patient will like to go home but expresses some anxiousness if she notices blood in her stool again. Currently patient's condition is stable with much improvement. Guarded prognosis. On exam vital signs are stable. Temp is 98.2 oral, pulse is 81, respirations are 16, blood pressure is 146/81, oxygen saturation is 99% on room air. Cardio S1 and S2 are normal. Respiratory system shows clear upon auscultation. Abdomen is soft, thin, and nontender. Nervous system shows no focal deficits and gait is steady. Please refer to medication reconciliation sheet for a list of medications. Patient Condition at Discharge: Fair Plan - Discharge Summary Discharge Rx Participant: No New Discharge Prescriptions: New Hydrocortisone Suppository [Anusol-Hc] 25 mg RECTAL DAILY 30 Days #30 supp Polyethylene Glycol 3350 [Miralax] 17 gm PO DAILY 30 Days #527 gm Pantoprazole Sodium [Protonix] 40 mg PO DAILY #30 tablet. Continue sitaGLIPtin [Januvia] 50 mg PO DAILY Pioglitazone [Actos] 30 mg PO DAILY Ezetimibe [Zetia] 10 mg PO DAILY Acarbose [Precose] 25 mg PO DAILY Discharge Medication List Acarbose [Precose] 25 mg PO DAILY 07/07/19 [History] Ezetimibe [Zetia] 10 mg PO DAILY 07/07/19 [History] Pioglitazone [Actos] 30 mg PO DAILY 07/07/19 [History] sitaGLIPtin [Januvia] 50 mg PO DAILY 07/07/19 [History] Hydrocortisone Suppository [Anusol-Hc] 25 mg RECTAL DAILY 30 Days #30 supp 07/09/19 [Rx] Pantoprazole Sodium [Protonix] 40 mg PO DAILY #30 tablet. 07/09/19 [Rx] Polyethylene Glycol 3350 [Miralax] 17 gm PO DAILY 30 Days #527 gm 07/09/19 [Rx] Follow up Appointment(s)/Referral(s): Dereje Arriola MD [REFERRING] - 1-2 Days Cole Gardner MD [STAFF PHYSICIAN] - 3 Weeks Ambulatory/Diagnostic Orders: Complete Blood Count w/diff [LAB.AMB] Time Frame: 2 Days, Location: None Selected Activity/Diet/Wound Care/Special Instructions: Activity Limited until follow-up Continue current diabetic diet Follow-up with primary care provider this week Follow-up with gastroenterology provider as discussed Repeat labs in 2-3 days, results will be faxed to your primary care DrGenaro from the lab Discharge Disposition: HOME SELF-CARE
== END 2019-07-09 18:46 | disposition home or self-care (01) | DRG 378 ==
LOC: EC 05:02 → 4MS4W 07:12 → OBSVTOIN 07-09 12:58
PROVIDERS: ADMIT Hospitalist; ATTEND Hospitalist
DX: K92.1 Melena (principal); D62 Acute posthemorrhagic anemia; E11.65 Type 2 diabetes mellitus with hyperglycemia; E78.5 Hyperlipidemia, unspecified; K59.09 Other constipation; N28.9 Disorder of kidney and ureter, unspecified; Z79.84 Long term (current) use of oral hypoglycemic drugs; Z79.899 Other long term (current) drug therapy; Z80.0 Family history of malignant neoplasm of digestive organs; Z90.710 Acquired absence of both cervix and uterus; Z85.828 Personal history of other malignant neoplasm of skin
CPT/HCPCS: 36415; 80048; 80053; 82272; 83605; 84484; 85025; 85610; 85730; 86850; 86870; 86880; 86900; 86901; 86902; 87324; 93005; 96374; 99285

== ENCOUNTER 2020-07-17 19:16 | Inpatient (IN) | payer MEDICARE ==
--- NOTE | 2020-07-17 19:58 | ED ---
Abdominal Pain HPI - General Chief Complaint: Abdominal Pain Stated Complaint: NV Time Seen by Provider: 07/17/20 19:20 Source: patient, EMS Mode of arrival: EMS - History of Present Illness Initial Comments: 89-year-old female with past medical history of diabetes hyperlipidemia presents emergency room with nausea and vomiting. She she ate tuna salad with peppers yesterday at 6 pm and shortly after she began having vomiting. Reports that she was up all night nonbilious, nonbloody vomiting. Also reports to periumbilical abdominal pain which radiates around to her back and abdominal distention. No history of similar in the past. Reports increased flatus. Denies flank pain. No ripping or tearing sensation to her back. Denies dysuria, hematuria or difficulty voiding. No fevers or chills. 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 - Related Data Home Medications Medication Instructions Recorded Confirmed Acarbose [Precose] 25 mg PO DAILY 07/07/19 07/17/20 Ezetimibe [Zetia] 10 mg PO HS 07/07/19 07/17/20 Pioglitazone [Actos] 30 mg PO DAILY 07/07/19 07/17/20 sitaGLIPtin [Januvia] 50 mg PO DAILY 07/07/19 07/17/20 Multivit-Min/FA/Lycopen/Lutein 1 tab PO DAILY@1300 07/17/20 07/17/20 [Centrum Silver Tablet] Vits A,C,E/Lutein/Minerals 1 tab PO DAILY@1500 07/17/20 07/17/20 [Ocuvite with Lutein Tablet] Allergies Allergy/AdvReac Type Severity Reaction Status Date / Time No Known Allergies Allergy Verified 07/17/20 23:13 Review of Systems ROS Statement: Those systems with pertinent positive or pertinent negative responses have been documented in the HPI. ROS Other: All systems not noted in ROS Statement are negative. Past Medical History Past Medical History: Cancer, Diabetes Mellitus, Hyperlipidemia Additional Past Medical History / Comment(s): skin CA History of Any Multi-Drug Resistant Organisms: None Reported Past Surgical History: Appendectomy, Heart Catheterization, Hysterectomy Additional Past Surgical History / Comment(s): skin CA removal. Past Anesthesia/Blood Transfusion Reactions: No Reported Reaction Past Psychological History: No Psychological Hx Reported Smoking Status: Never smoker Past Alcohol Use History: None Reported Past Drug Use History: None Reported - Past Family History Mother Family Medical History: Cancer Father Family Medical History: Cancer General Exam General appearance: alert, in no apparent distress Head exam: Present: atraumatic, normocephalic, normal inspection Eye exam: Present: normal appearance, PERRL, EOMI. Absent: scleral icterus, conjunctival injection, periorbital swelling ENT exam: Present: normal exam, mucous membranes moist Neck exam: Present: normal inspection. Absent: tenderness, meningismus, lymphadenopathy Respiratory exam: Present: normal lung sounds bilaterally. Absent: respiratory distress, wheezes, rales, rhonchi, stridor Cardiovascular Exam: Present: regular rate, normal rhythm, normal heart sounds. Absent: systolic murmur, diastolic murmur, rubs, gallop, clicks GI/Abdominal exam: Present: soft, tenderness (epigastric), normal bowel sounds. Absent: distended, guarding, rebound, rigid Extremities exam: Present: normal inspection, full ROM, normal capillary refill. Absent: tenderness, pedal edema, joint swelling, calf tenderness Back exam: Present: normal inspection Neurological exam: Present: alert, oriented X3, CN II-XII intact Psychiatric exam: Present: normal affect, normal mood Skin exam: Present: warm, dry, intact, normal color. Absent: rash Course Vital Signs 07/17/20 07/17/20 07/17/20 19:17 21:00 22:00 Temperature 97.9 F Pulse Rate 93 80 88 Pulse Rate [ Pulse Oximetery ] Respiratory 19 18 18 Rate Blood Pressure 163/101 152/61 147/68 Blood Pressure [Right Arm] O2 Sat by Pulse 99 98 98 Oximetry 07/17/20 07/18/20 07/18/20 23:00 00:00 07:00 Temperature 98.2 F 98.3 F Pulse Rate 77 77 Pulse Rate [ 73 Pulse Oximetery ] Respiratory 18 18 16 Rate Blood Pressure 132/56 133/54 Blood Pressure 129/58 [Right Arm] O2 Sat by Pulse 95 97 96 Oximetry Medical Decision Making - Medical Decision Making Upon arrival the patient is placed into room 5. A thorough history and physical exam was performed. Peripheral IV is established. Patient is given 4 mg of Zofran by mouth by EMS. She is reporting to improvement. Continues to complain of pain. She was given 50 g of fentanyl, 4 mg of Zofran and a 500 mL bolus. Laboratory studies were conducted. Glucose is 228. Urine is positive for 1+ ketones. Large leukocyte esterase and 8 white blood cells and rare bacteria. Urine will be sent for culture. CT the patient's abdomen and pelvis demonstrates multiple dilated loops of small bowel in the mid abdomen suggestive of ileus or partial small bowel obstruction. No free air. Mild abdominal ascit es. I discussed this with the patient. She states that she will attempt NG tube placement. I recommended hospitalization with GI and surgery consult. Patient did agree. Discussed case with Dr. Jovel who accepted admission. Patient is currently awaiting a bed on the floor - Lab Data Result diagrams: 07/18/20 06:28 07/18/20 06:28 Lab Results 07/17/20 07/17/20 07/17/20 Range/Units 19:35 19:35 19:35 WBC 10.8 H (3.8-10.6) k/uL RBC 4.26 (3.80-5.40) m/uL Hgb 13.3 (11.4-16.0) gm/dL Hct 41.0 (34.0-46.0) % MCV 96.2 (80.0-100.0) fL MCH 31.3 (25.0-35.0) pg MCHC 32.5 (31.0-37.0) g/dL RDW 13.6 (11.5-15.5) % Plt Count 168 (150-450) k/uL Neutrophils % 91 % Lymphocytes % 4 % Monocytes % 4 % Eosinophils % 0 % Basophils % 0 % Neutrophils # 9.9 H (1.3-7.7) k/uL Lymphocytes # 0.5 L (1.0-4.8) k/uL Monocytes # 0.5 (0-1.0) k/uL Eosinophils # 0.0 (0-0.7) k/uL Basophils # 0.0 (0-0.2) k/uL PT 11.2 (9.0-12.0) sec INR 1.1 (<1.2) APTT 19.0 L (22.0-30.0) sec Sodium (137-145) mmol/L Potassium (3.5-5.1) mmol/L Chloride (98-107) mmol/L Carbon Dioxide (22-30) mmol/L Anion Gap mmol/L BUN (7-17) mg/dL Creatinine (0.52-1.04) mg/dL Est GFR (CKD-EPI)AfAm (>60 ml/min/1.73 sqM) Est GFR (CKD-EPI)NonAf (>60 ml/min/1.73 sqM) Glucose (74-99) mg/dL Plasma Lactic Acid Kd (0.7-2.0) mmol/L Calcium (8.4-10.2) mg/dL Total Bilirubin (0.2-1.3) mg/dL AST (14-36) U/L ALT (4-34) U/L Alkaline Phosphatase (38-126) U/L Troponin I (0.000-0.034) ng/mL Total Protein (6.3-8.2) g/dL Albumin (3.5-5.0) g/dL Amylase (30-110) U/L Lipase (23-300) U/L Urine Color Yellow Urine Appearance Cloudy H (Clear) Urine pH 5.5 (5.0-8.0) Ur Specific Crane 1.022 (1.001-1.035) Urine Protein Trace H (Negative) Urine Glucose (UA) Trace H (Negative) Urine Ketones 1+ H (Negative) Urine Blood Negative (Negative) Urine Nitrite Negative (Negative) Urine Bilirubin Negative (Negative) Urine Urobilinogen <2.0 (<2.0) mg/dL Ur Leukocyte Esterase Large H (Negative) Urine RBC 1 (0-5) /hpf Urine WBC 8 H (0-5) /hpf Ur Squamous Epith Cells 2 (0-4) /hpf Urine Bacteria Rare H (None) /hpf Hyaline Casts 4 H (0-2) /lpf Urine Mucus Rare H (None) /hpf 07/17/20 07/17/20 07/17/20 Range/Units 19:35 19:35 19:35 WBC (3.8-10.6) k/uL RBC (3.80-5.40) m/uL Hgb (11.4-16.0) gm/dL Hct (34.0-46.0) % MCV (80.0-100.0) fL MCH (25.0-35.0) pg MCHC (31.0-37.0) g/dL RDW (11.5-15.5) % Plt Count (150-450) k/uL Neutrophils % % Lymphocytes % % Monocytes % % Eosinophils % % Basophils % % Neutrophils # (1.3-7.7) k/uL Lymphocytes # (1.0-4.8) k/uL Monocytes # (0-1.0) k/uL Eosinophils # (0-0.7) k/uL Basophils # (0-0.2) k/uL PT (9.0-12.0) sec INR (<1.2) APTT (22.0-30.0) sec Sodium 131 L (137-145) mmol/L Potassium 4.1 (3.5-5.1) mmol/L Chloride 94 L (98-107) mmol/L Carbon Dioxide 27 (22-30) mmol/L Anion Gap 10 mmol/L BUN 22 H (7-17) mg/dL Creatinine 0.60 (0.52-1.04) mg/dL Est GFR (CKD-EPI)AfAm >90 (>60 ml/min/1.73 sqM) Est GFR (CKD-EPI)NonAf 82 (>60 ml/min/1.73 sqM) Glucose 228 H (74-99) mg/dL Plasma Lactic Acid Kd 2.0 (0.7-2.0) mmol/L Calcium 9.7 (8.4-10.2) mg/dL Total Bilirubin 0.9 (0.2-1.3) mg/dL AST 34 (14-36) U/L ALT 19 (4-34) U/L Alkaline Phosphatase 53 (38-126) U/L Troponin I <0.012 (0.000-0.034) ng/mL Total Protein 7.4 (6.3-8.2) g/dL Albumin 4.6 (3.5-5.0) g/dL Amylase 65 (30-110) U/L Lipase 35 (23-300) U/L Urine Color Urine Appearance (Clear) Urine pH (5.0-8.0) Ur Specific Crane (1.001-1.035) Urine Protein (Negative) Urine Glucose (UA) (Negative) Urine Ketones (Negative) Urine Blood (Negative) Urine Nitrite (Negative) Urine Bilirubin (Negative) Urine Urobilinogen (<2.0) mg/dL Ur Leukocyte Esterase (Negative) Urine RBC (0-5) /hpf Urine WBC (0-5) /hpf Ur Squamous Epith Cells (0-4) /hpf Urine Bacteria (None) /hpf Hyaline Casts (0-2) /lpf Urine Mucus (None) /hpf - EKG Data EKG Comments: EKG demonstrates normal sinus rhythm with ventricular rate of 83. CO interval 134. QRS 90. QTC of 455. No acute ST segment elevations or depressions concerning for ischemic changes Disposition Clinical Impression: Nausea & vomiting, Small bowel obstruction Disposition: ADMITTED IP TO THIS HOSP Condition: Stable Is patient prescribed a controlled substance at d/c from ED?: No Decision to Admit Reason: Admit from EC Decision Date: 07/17/20 Decision Time: 21:25
[2020-07-17 20:06] LABS: Basophils % (A) 0 %; Eosinophils % (A) 0 %; HGB 13.3 gm/dL (11.4-16.0); Lymphocytes # (A) 0.5 k/uL (1.0-4.8); Lymphocytes % (A) 4 %; MCH 31.3 pg (25.0-35.0); MCHC 32.5 g/dL (31.0-37.0); MCV 96.2 fL (80.0-100.0); Mean Platelet Volume 7.8; Monocytes # (A) 0.5 k/uL (0-1.0); Monocytes % (A) 4 %; Neutrophils # (A) 9.9 k/uL (1.3-7.7); Neutrophils % (A) 91 %; Platelet Count 168 k/uL (150-450); RBC 4.26 m/uL (3.80-5.40); RDW 13.6 % (11.5-15.5); WBC 10.8 k/uL (3.8-10.6)
[2020-07-17] MEDS ORDERED: SODIUM CHLORIDE 0.9% 500 ML 500 ML IV ONE (20:14)
[2020-07-17] MEDS ORDERED: fentaNYL (PF) 50 MCG/ML 2 ML AMP IVP STA (20:14)
[2020-07-17 20:17] LABS: ALT 19 U/L (4-34); AST 34 U/L (14-36); African American GFR (CKD) >90 (>60 ml/min/1.73 sqM); Albumin 4.6 g/dL (3.5-5.0); Alkaline Phosphatase 53 U/L (38-126); Amylase 65 U/L (30-110); Anion Gap 10 mmol/L; Blood Urea Nitrogen 22 mg/dL (7-17); Calcium 9.7 mg/dL (8.4-10.2); Carbon Dioxide 27 mmol/L (22-30); Chloride 94 mmol/L (98-107); Glucose 228 mg/dL (74-99); Non-African American GFR(CKD) 82 (>60 ml/min/1.73 sqM); Potassium 4.1 mmol/L (3.5-5.1); Sodium 131 mmol/L (137-145); Total Bilirubin 0.9 mg/dL (0.2-1.3); Total Protein 7.4 g/dL (6.3-8.2)
[2020-07-17 20:21] LABS: INR 1.1 (<1.2); Prothrombin Time 11.2 sec (9.0-12.0)
[2020-07-17 20:26] LABS: Appearance,Urine Cloudy (Clear); Bacteria,Urine Rare /hpf; Bilirubin,Urine Negative (Negative); Blood,Urine Negative (Negative); Color,Urine Yellow; Glucose,Urine (UA) Trace (Negative); Hyaline Casts,Urine 4 /lpf (0-2); Ketones,Urine 1+ (Negative); Leukocyte Esterase,Urine Large (Negative); Mucus,Urine Rare /hpf; Nitrite,Urine Negative (Negative); PH, Urine 5.5 (5.0-8.0); Protein,Urine Trace (Negative); RBC,Urine 1 /hpf (0-5); Specific Gravity,Urine 1.022 (1.001-1.035); Squamous Epithelial Cell,Urine 2 /hpf (0-4); Urobilinogen,Urine <2.0 mg/dL (<2.0); WBC,Urine 8 /hpf (0-5)
--- NOTE | 2020-07-17 20:57 | CT ---
EXAMINATION TYPE: CT abdomen pelvis w con DATE OF EXAM: 07/17/2020 COMPARISON: None HISTORY: Epigastric abdominal and back pain. Vomiting. CT DLP: 590.6 mGycm Automated exposure control for dose reduction was used. CONTRAST: Performed with IV Contrast, patient injected with 100ml mL of Isovue 300. There is mild subsegmental atelectasis at the lung bases. Heart is slightly enlarged. There is no per icardial effusion. Liver spleen stomach appear intact. The bile ducts are not dilated. There is no ev idence of pancreatic mass. There is abdominal ascites. There is fluid around the liver and spleen. There is no adrenal mass. The kidneys show satisfactory contrast opacification. There is no hydroneph rosis. Ureters are not dilated. Delayed images show normal renal excretion. There is no retroperitone al adenopathy. Bladder distends smoothly. There are multiple dilated loops of air and fluid-filled small bowel in the abdomen. Small bowel is d ilated to the distal ileum. Small bowel measures up to 3.2 cm. Obstructing lesion is not seen. There are small bowel loops in the pelvis which have fairly normal size. There is small amount of free flui d in the pelvis. Lumbar vertebra have normal alignment. There is no compression fracture. There is multilevel lumbar d isc space narrowing. The bony pelvis is intact. IMPRESSION: Multiple dilated loops of small bowel in the mid abdomen suggestive of ileus or partial mechanical ob struction. No free air. Mild abdominal ascites.
[2020-07-17] MEDS ORDERED: MORPHINE SULFATE 4 MG/ML SYRINGE IV PRN (21:25)
[2020-07-17] MEDS ORDERED: NALOXONE 0.4 MG/ML 1 ML VIAL IV PRN (21:25)
[2020-07-18] MEDS: SODIUM CHLORIDE 0.9% 1,000 ML IV SCH ×3 (01:04→21:24)
[2020-07-18 06:58] LABS: Basophils % (A) 0 %; Eosinophils % (A) 0 %; HCT 35.1 % (34.0-46.0); HGB 11.4 gm/dL (11.4-16.0); Lymphocytes # (A) 0.8 k/uL (1.0-4.8); Lymphocytes % (A) 11 %; MCH 31.3 pg (25.0-35.0); MCHC 32.5 g/dL (31.0-37.0); MCV 96.2 fL (80.0-100.0); Mean Platelet Volume 7.7; Monocytes # (A) 0.5 k/uL (0-1.0); Monocytes % (A) 7 %; Neutrophils % (A) 81 %; Platelet Count 156 k/uL (150-450); RBC 3.65 m/uL (3.80-5.40); RDW 13.8 % (11.5-15.5); WBC 7.4 k/uL (3.8-10.6)
[2020-07-18 07:04] LABS: African American GFR (CKD) >90 (>60 ml/min/1.73 sqM); Anion Gap 5 mmol/L; Blood Urea Nitrogen 18 mg/dL (7-17); Calcium 8.6 mg/dL (8.4-10.2); Carbon Dioxide 29 mmol/L (22-30); Chloride 99 mmol/L (98-107); Glucose 166 mg/dL (74-99); Non-African American GFR(CKD) 83 (>60 ml/min/1.73 sqM); Sodium 133 mmol/L (137-145)
[2020-07-18] MEDS ORDERED: ACETAMINOPHEN IV (For NPO) 1,000 MG in EMPTY BAG 1 BAG IVPB PRN (10:14)
--- NOTE | 2020-07-18 10:46 | P.GSCN ---
<Allyson Liz - Last Filed: 07/18/20 10:29> History of Present Illness Consult date: 07/18/20 History of present illness: CHIEF COMPLAINT: Abdominal pain 2 days HISTORY OF PRESENT ILLNESS: This is a 89-year-old female with a known history of diabetes, hyperlipidemia, constipation, appendectomy and hysterectomy. Patient has family history of a mother who from colon cancer. Patient presents to the emergency room via EMS with complaints of abdominal pain for the past 2 days. Patient reports that she ate a tuna sandwich 2 days ago and started to have vomiting and abdominal pain. Patient reports that the pain was located in the left lower quadrant lower mid abdomen and radiated to the back. She reports having chills and sweats. She is unsure if she had a fever. She r eported the pain as sharp and and radiated 10 out of 10. Patient had emesis that was mostly bile. She is passing gas. She had NG tube placed in the emergency room. Computed tomography scan reports multiple dilated loops of small bowel in the mid abdomen suggestive of ileus or partial mechanical obstruction. No free air. Mild abdominal ascites. Patient reported that she did not ever have a colonoscopy. But further evaluation of charting shows that patient may have had a colonoscopy 11 years ago her chart notes. PAST MEDICAL HISTORY: See list. PAST SURGICAL HISTORY: See list. MEDICATIONS: See list. ALLERGIES: See list. SOCIAL HISTORY: No illicit drug use. REVIEW OF SYSTEMS: CONSTITUTIONAL: Denies fever or chills. HEENT: Denies blurred vision, vision changes, or eye pain. Denies hemoptysis CARDIOVASCULAR: Denies chest pain or pressure. RESPIRATORY: No shortness of breath. GASTROINTESTINAL: See HPI for pertinent findings HEMATOLOGIC: Denies bleeding disorders. GENITOURINARY: Denies any blood in urine or increased urinary frequency. SKIN: Denies pruitis. Denies rash. PHYSICAL EXAM: VITAL SIGNS: Reviewed GENERAL: Well-developed in no acute distress. HEENT: No sclera icterus. Extraocular movements grossly intact. Moist buccal mucosa. Head is atraumatic, normocephalic. No nasal drainage. ABDOMEN: Soft. Distended. Patient has some lower abdominal tenderness with palpation. NG tube no significant output NEUROLOGIC: Alert and oriented. Cranial nerves II through XII grossly intact. LABORATORY DATA: WBC 10.8 down to 7.4 hemoglobin 11.4 sodium 133 creatinine 0.58 lactic 2.0 AST 34 ALT 19 lipase 35 IMAGING: Computed tomography scan reports multiple dilated loops of small bowel in the mid abdomen suggestive of ileus or partial mechanical obstruction. No free air. Mild abdominal ascites. ASSESSMENT: 1. Ileus versus partial mechanical small bowel obstruction 2. Family history significant for mother with colon cancer 3. History of diabetes mellitus type 2 4. Chronic constipation 5. History of appendectomy PLAN: -Keep patient nothing by mouth -Continue NG tube for decompression -Continue IV fluids -Continue Toradol and Tylenol as needed for pain -Continue Zofran as needed for nausea Thank you for this consultation. Physician Buzzsaw Operator Helper note has been reviewed by physician. Signing provider agrees with the documented findings, assessment, and plan of care. Past Medical History Past Medical History: Cancer, Diabetes Mellitus, Hyperlipidemia Additional Past Medical History / Comment(s): skin CA History of Any Multi-Drug Resistant Organisms: None Reported Past Surgical History: Appendectomy, Heart Catheterization, Hysterectomy Additional Past Surgical History / Comment(s): skin CA removal. Past Anesthesia/Blood Transfusion Reactions: No Reported Reaction Past Psychological History: No Psychological Hx Reported Smoking Status: Never smoker Past Alcohol Use History: None Reported Past Drug Use History: None Reported - Past Family History Mother Family Medical History: Cancer Father Family Medical History: Cancer Medications and Allergies Home Medications Medication Instructions Recorded Confirmed Type Acarbose [Precose] 25 mg PO DAILY 07/07/19 07/17/20 History Ezetimibe [Zetia] 10 mg PO HS 07/07/19 07/17/20 History Pioglitazone [Actos] 30 mg PO DAILY 07/07/19 07/17/20 History sitaGLIPtin [Januvia] 50 mg PO DAILY 07/07/19 07/17/20 History Multivit-Min/FA/Lycopen/Lutein 1 tab PO DAILY@1300 07/17/20 07/17/20 History [Centrum Silver Tablet] Vits A,C,E/Lutein/Minerals 1 tab PO DAILY@1500 07/17/20 07/17/20 History [Ocuvite with Lutein Tablet] Allergies Allergy/AdvReac Type Severity Reaction Status Date / Time No Known Allergies Allergy Verified 07/17/20 23:13 Surgical - Exam Vital Signs Temp Pulse Resp BP Pulse Ox 97.9 F 93 19 163/101 99 07/17/20 19:17 07/17/20 19:17 07/17/20 19:17 07/17/20 19:17 07/17/20 19:17 Results - Labs 07/18/20 06:28 07/18/20 06:28 Abnormal Lab Results - Last 24 Hours (Table) 07/17/20 07/17/20 07/17/20 Range/Units 19:35 19:35 19:35 WBC 10.8 H (3.8-10.6) k/uL RBC (3.80-5.40) m/uL Neutrophils # 9.9 H (1.3-7.7) k/uL Lymphocytes # 0.5 L (1.0-4.8) k/uL APTT 19.0 L (22.0-30.0) sec Sodium (137-145) mmol/L Chloride (98-107) mmol/L BUN (7-17) mg/dL Glucose (74-99) mg/dL Urine Appearance Cloudy H (Clear) Urine Protein Trace H (Negative) Urine Glucose (UA) Trace H (Negative) Urine Ketones 1+ H (Negative) Ur Leukocyte Esterase Large H (Negative) Urine WBC 8 H (0-5) /hpf Urine Bacteria Rare H (None) /hpf Hyaline Casts 4 H (0-2) /lpf Urine Mucus Rare H (None) /hpf 07/17/20 07/18/20 07/18/20 Range/Units 19:35 06:28 06:28 WBC (3.8-10.6) k/uL RBC 3.65 L (3.80-5.40) m/uL Neutrophils # (1.3-7.7) k/uL Lymphocytes # 0.8 L (1.0-4.8) k/uL APTT (22.0-30.0) sec Sodium 131 L 133 L (137-145) mmol/L Chloride 94 L (98-107) mmol/L BUN 22 H 18 H (7-17) mg/dL Glucose 228 H 166 H (74-99) mg/dL Urine Appearance (Clear) Urine Protein (Negative) Urine Glucose (UA) (Negative) Urine Ketones (Negative) Ur Leukocyte Esterase (Negative) Urine WBC (0-5) /hpf Urine Bacteria (None) /hpf Hyaline Casts (0-2) /lpf Urine Mucus (None) /hpf Diabetes panel 07/17/20 07/18/20 Range/Units 19:35 06:28 Sodium 131 L 133 L (137-145) mmol/L Potassium 4.1 4.0 (3.5-5.1) mmol/L Chloride 94 L 99 (98-107) mmol/L Carbon Dioxide 27 29 (22-30) mmol/L BUN 22 H 18 H (7-17) mg/dL Creatinine 0.60 0.58 (0.52-1.04) mg/dL Glucose 228 H 166 H (74-99) mg/dL Calcium 9.7 8.6 (8.4-10.2) mg/dL AST 34 (14-36) U/L ALT 19 (4-34) U/L Alkaline Phosphatase 53 (38-126) U/L Total Protein 7.4 (6.3-8.2) g/dL Albumin 4.6 (3.5-5.0) g/dL Calcium panel 07/17/20 07/18/20 Range/Units 19:35 06:28 Calcium 9.7 8.6 (8.4-10.2) mg/dL Albumin 4.6 (3.5-5.0) g/dL Pituitary panel 07/17/20 07/18/20 Range/Units 19:35 06:28 Sodium 131 L 133 L (137-145) mmol/L Potassium 4.1 4.0 (3.5-5.1) mmol/L Chloride 94 L 99 (98-107) mmol/L Carbon Dioxide 27 29 (22-30) mmol/L BUN 22 H 18 H (7-17) mg/dL Creatinine 0.60 0.58 (0.52-1.04) mg/dL Glucose 228 H 166 H (74-99) mg/dL Calcium 9.7 8.6 (8.4-10.2) mg/dL Adrenal panel 07/17/20 07/18/20 Range/Units 19:35 06:28 Sodium 131 L 133 L (137-145) mmol/L Potassium 4.1 4.0 (3.5-5.1) mmol/L Chloride 94 L 99 (98-107) mmol/L Carbon Dioxide 27 29 (22-30) mmol/L BUN 22 H 18 H (7-17) mg/dL Creatinine 0.60 0.58 (0.52-1.04) mg/dL Glucose 228 H 166 H (74-99) mg/dL Calcium 9.7 8.6 (8.4-10.2) mg/dL Total Bilirubin 0.9 (0.2-1.3) mg/dL AST 34 (14-36) U/L ALT 19 (4-34) U/L Alkaline Phosphatase 53 (38-126) U/L Total Protein 7.4 (6.3-8.2) g/dL Albumin 4.6 (3.5-5.0) g/dL <Jose Manuel Price - Last Filed: 07/18/20 13:05> History of Present Illness History of present illness: As above. Patient with presentation consisting of abdominal pain, nausea vomiting, and bloating. Abdominal CAT scan demonstrates dilated small bowel loops with collapsed distal small bowel loops. Moderate amount of air and feces within the colon proximally as well however. Some free fluid particularly around the liver. Some vague inflammatory changes in the abdomen as well. White blood cell count is normal. Vital signs stable. Patient does provide history of colonoscopy she thought 8 years ago. Mother with history of colon cancer. Otherwise having stable bowel habits. History of chronic constipation. Patient does feel much better currently. Narcotics were given earlier this morning but none since. Nasogastric tube remains in place. On examination patient is alert and in no distress. Abdomen is soft but distended. Patient only has mild tenderness with deep palpation. No peritoneal signs currently. Clinical scenario discussed in detail with the patient and her son. The patient's CAT scan is more alarming then the patient's labs, history, or exam. Option of operative versus nonoperative approach reviewed in detail. She is not interested in surgery if this can be avoided at all. At this time we decided to continue with a nonoperative approach. Continue nasogastric tube to suction. Begin IV antibiotics empirically. Check CEA 125 and CEA level. Repeat abdominal x-rays tomorrow. If patient's symptoms persist or worsen would recommend exploratory laparotomy. Patient and son are agreeable. Surgical - Exam Vital Signs Temp Pulse Resp BP Pulse Ox 97.9 F 93 19 163/101 99 07/17/20 19:17 07/17/20 19:17 07/17/20 19:17 07/17/20 19:17 07/17/20 19:17 Results - Labs 07/18/20 06:28 07/18/20 06:28 Abnormal Lab Results - Last 24 Hours (Table) 07/17/20 07/17/20 07/17/20 Range/Units 19:35 19:35 19:35 WBC 10.8 H (3.8-10.6) k/uL RBC (3.80-5.40) m/uL Neutrophils # 9.9 H (1.3-7.7) k/uL Lymphocytes # 0.5 L (1.0-4.8) k/uL APTT 19.0 L (22.0-30.0) sec Sodium (137-145) mmol/L Chloride (98-107) mmol/L BUN (7-17) mg/dL Glucose (74-99) mg/dL Urine Appearance Cloudy H (Clear) Urine Protein Trace H (Negative) Urine Glucose (UA) Trace H (Negative) Urine Ketones 1+ H (Negative) Ur Leukocyte Esterase Large H (Negative) Urine WBC 8 H (0-5) /hpf Urine Bacteria Rare H (None) /hpf Hyaline Casts 4 H (0-2) /lpf Urine Mucus Rare H (None) /hpf 07/17/20 07/18/20 07/18/20 Range/Units 19:35 06:28 06:28 WBC (3.8-10.6) k/uL RBC 3.65 L (3.80-5.40) m/uL Neutrophils # (1.3-7.7) k/uL Lymphocytes # 0.8 L (1.0-4.8) k/uL APTT (22.0-30.0) sec Sodium 131 L 133 L (137-145) mmol/L Chloride 94 L (98-107) mmol/L BUN 22 H 18 H (7-17) mg/dL Glucose 228 H 166 H (74-99) mg/dL Urine Appearance (Clear) Urine Protein (Negative) Urine Glucose (UA) (Negative) Urine Ketones (Negative) Ur Leukocyte Esterase (Negative) Urine WBC (0-5) /hpf Urine Bacteria (None) /hpf Hyaline Casts (0-2) /lpf Urine Mucus (None) /hpf Diabetes panel 07/17/20 07/18/20 Range/Units 19:35 06:28 Sodium 131 L 133 L (137-145) mmol/L Potassium 4.1 4.0 (3.5-5.1) mmol/L Chloride 94 L 99 (98-107) mmol/L Carbon Dioxide 27 29 (22-30) mmol/L BUN 22 H 18 H (7-17) mg/dL Creatinine 0.60 0.58 (0.52-1.04) mg/dL Glucose 228 H 166 H (74-99) mg/dL Calcium 9.7 8.6 (8.4-10.2) mg/dL AST 34 (14-36) U/L ALT 19 (4-34) U/L Alkaline Phosphatase 53 (38-126) U/L Total Protein 7.4 (6.3-8.2) g/dL Albumin 4.6 (3.5-5.0) g/dL Calcium panel 07/17/20 07/18/20 Range/Units 19:35 06:28 Calcium 9.7 8.6 (8.4-10.2) mg/dL Albumin 4.6 (3.5-5.0) g/dL Pituitary panel 07/17/20 07/18/20 Range/Units 19:35 06:28 Sodium 131 L 133 L (137-145) mmol/L Potassium 4.1 4.0 (3.5-5.1) mmol/L Chloride 94 L 99 (98-107) mmol/L Carbon Dioxide 27 29 (22-30) mmol/L BUN 22 H 18 H (7-17) mg/dL Creatinine 0.60 0.58 (0.52-1.04) mg/dL Glucose 228 H 166 H (74-99) mg/dL Calcium 9.7 8.6 (8.4-10.2) mg/dL Adrenal panel 07/17/20 07/18/20 Range/Units 19:35 06:28 Sodium 131 L 133 L (137-145) mmol/L Potassium 4.1 4.0 (3.5-5.1) mmol/L Chloride 94 L 99 (98-107) mmol/L Carbon Dioxide 27 29 (22-30) mmol/L BUN 22 H 18 H (7-17) mg/dL Creatinine 0.60 0.58 (0.52-1.04) mg/dL Glucose 228 H 166 H (74-99) mg/dL Calcium 9.7 8.6 (8.4-10.2) mg/dL Total Bilirubin 0.9 (0.2-1.3) mg/dL AST 34 (14-36) U/L ALT 19 (4-34) U/L Alkaline Phosphatase 53 (38-126) U/L Total Protein 7.4 (6.3-8.2) g/dL Albumin 4.6 (3.5-5.0) g/dL
--- NOTE | 2020-07-18 10:50 | P.HPIM ---
History of Present Illness 81-year-old female came in with compensative lower abdominal pain crampy in nature 10/10 severity. Along associate nausea vomiting. Patient that it appears the symptoms to something she ate couple days ago. Patient did have a bowel movement yesterday. Patient had a computed tomography scan of the abdomen which showed small bowel obstruction because of which patient is being admitted. Patient doesn't have any peritonitis clinically or radiologically. Patient Mray has an NG tube patient abdomen is bit distended and tympanic no sitting and drainage from the NG tube. Review of Systems REVIEW OF SYSTEMS: CONSTITUTIONAL: No fever, no malaise, no fatigue. HEENT: No recent visual problems or hearing problems. Denied any sore throat. CARDIOVASCULAR: No chest pain, orthopnea, PND, no palpitations, no syncope. PULMONARY: No shortness of breath, no cough, no hemoptysis. GASTROINTESTINAL: As mentioned in HPI NEUROLOGICAL: No headaches, no weakness, no numbness. HEMATOLOGICAL: Denies any bleeding or petechiae. GENITOURINARY: Denies any burning micturition, frequency, or urgency. MUSCULOSKELETAL/RHEUMATOLOGICAL: Denies any joint pain, swelling, or any muscle pain. ENDOCRINE: Denies any polyuria or polydipsia. The rest of the 14-point review of systems is negative. Past Medical History Past Medical History: Cancer, Diabetes Mellitus, Hyperlipidemia Additional Past Medical History / Comment(s): skin CA History of Any Multi-Drug Resistant Organisms: None Reported Past Surgical History: Appendectomy, Heart Catheterization, Hysterectomy Additional Past Surgical History / Comment(s): skin CA removal. Past Anesthesia/Blood Transfusion Reactions: No Reported Reaction Past Psychological History: No Psychological Hx Reported Smoking Status: Never smoker Past Alcohol Use History: None Reported Past Drug Use History: None Reported - Past Family History Mother Family Medical History: Cancer Father Family Medical History: Cancer Medications and Allergies Home Medications Medication Instructions Recorded Confirmed Type Acarbose [Precose] 25 mg PO DAILY 07/07/19 07/17/20 History Ezetimibe [Zetia] 10 mg PO HS 07/07/19 07/17/20 History Pioglitazone [Actos] 30 mg PO DAILY 07/07/19 07/17/20 History sitaGLIPtin [Januvia] 50 mg PO DAILY 07/07/19 07/17/20 History Multivit-Min/FA/Lycopen/Lutein 1 tab PO DAILY@1300 07/17/20 07/17/20 History [Centrum Silver Tablet] Vits A,C,E/Lutein/Minerals 1 tab PO DAILY@1500 07/17/20 07/17/20 History [Ocuvite with Lutein Tablet] Allergies Allergy/AdvReac Type Severity Reaction Status Date / Time No Known Allergies Allergy Verified 07/17/20 23:13 Physical Exam Vitals: Vital Signs Temp Pulse Pulse Resp BP BP Pulse Ox 07/18/20 07:00 98.3 F 73 16 129/58 96 07/18/20 00:00 98.2 F 77 18 133/54 97 07/17/20 23:00 77 18 132/56 95 07/17/20 22:00 88 18 147/68 98 07/17/20 21:00 80 18 152/61 98 07/17/20 19:17 97.9 F 93 19 163/101 99 Intake and Output 07/17/20 07/18/20 07/18/20 22:59 06:59 14:59 Intake Total 10 Balance 10 Intake: IV 10 Invasive Line 1 10 Other: Weight 51.256 kg 51.256 kg PHYSICAL EXAMINATION: GENERAL: The patient is alert and oriented x3, not in any acute distress. Well developed, well nourished. HEENT: Pupils are round and equally reacting to light. EOMI. No scleral icterus. No conjunctival pallor. Normocephalic, atraumatic. No pharyngeal erythema. No thyromegaly. CARDIOVASCULAR: S1 and S2 present. No murmurs, rubs, or gallops. PULMONARY: Chest is clear to auscultation, no wheezing or crackles. ABDOMEN: Mild abdominal distention tympanic bowel sounds are present. MUSCULOSKELETAL: No joint swelling or deformity. EXTREMITIES: No cyanosis, clubbing, or pedal edema. NEUROLOGICAL: Gross neurological examination did not reveal any focal deficits. SKIN: No rashes. Results CBC & Chem 7: 07/18/20 06:28 07/18/20 06:28 Labs: Abnormal Lab Results - Last 24 Hours (Table) 07/17/20 07/17/20 07/17/20 Range/Units 19:35 19:35 19:35 WBC 10.8 H (3.8-10.6) k/uL RBC (3.80-5.40) m/uL Neutrophils # 9.9 H (1.3-7.7) k/uL Lymphocytes # 0.5 L (1.0-4.8) k/uL APTT 19.0 L (22.0-30.0) sec Sodium (137-145) mmol/L Chloride (98-107) mmol/L BUN (7-17) mg/dL Glucose (74-99) mg/dL Urine Appearance Cloudy H (Clear) Urine Protein Trace H (Negative) Urine Glucose (UA) Trace H (Negative) Urine Ketones 1+ H (Negative) Ur Leukocyte Esterase Large H (Negative) Urine WBC 8 H (0-5) /hpf Urine Bacteria Rare H (None) /hpf Hyaline Casts 4 H (0-2) /lpf Urine Mucus Rare H (None) /hpf 07/17/20 07/18/20 07/18/20 Range/Units 19:35 06:28 06:28 WBC (3.8-10.6) k/uL RBC 3.65 L (3.80-5.40) m/uL Neutrophils # (1.3-7.7) k/uL Lymphocytes # 0.8 L (1.0-4.8) k/uL APTT (22.0-30.0) sec Sodium 131 L 133 L (137-145) mmol/L Chloride 94 L (98-107) mmol/L BUN 22 H 18 H (7-17) mg/dL Glucose 228 H 166 H (74-99) mg/dL Urine Appearance (Clear) Urine Protein (Negative) Urine Glucose (UA) (Negative) Urine Ketones (Negative) Ur Leukocyte Esterase (Negative) Urine WBC (0-5) /hpf Urine Bacteria (None) /hpf Hyaline Casts (0-2) /lpf Urine Mucus (None) /hpf Thrombosis Risk Factor Assmnt - Choose All That Apply Each Risk Factor Represents 3 Points: Age 75 years or older Thrombosis Risk Factor Assessment Total Risk Factor Score: 3 Thrombosis Risk Factor Assessment Level: Moderate Risk Assessment and Plan Plan: -Ileus/mechanical small bowel obstruction: surgery will evaluate the patient. Renew with the NG tube on bowel rest and the patient was given IV fluids we'll increase the IV fluid normal saline to 100 mL/h. Dilaudid will be discontinued and patient was given IV Tylenol and the Toradol for pain. -hypovolemic hyponatremia: Next 2 to improve with IV fluids secondary to nausea vomiting. -Type 2 diabetes mellitus oral hyperglycemic agents will be sliding scale insulin for now -Hyperlipidemia -DVT prophylaxis Lovenox
[2020-07-18] MEDS: PANTOPRAZOLE 40 MG/10 ML VIAL IVP SCH (11:36)
[2020-07-18 13:29] LABS: Glucose,Whole Blood 167 mg/dL (75-99)
[2020-07-18] MEDS: INSULIN ASPART (NovoLOG) 100 UNIT/ML VIAL SQ SCH ×3 (13:50→21:46)
[2020-07-18 17:01] LABS: Glucose,Whole Blood 186 mg/dL (75-99)
[2020-07-18] MEDS: PIPERACILLIN-TAZOBACTAM 3.375 GM in SODIUM CHLORIDE 0.9% 100 ML IVPB SCH ×2 (17:34→23:02)
[2020-07-18] MEDS: KETOROLAC 15 MG/ML 1 ML VIAL IVP PRN ×2 (17:35→23:32)
[2020-07-18 21:22] LABS: Glucose,Whole Blood 110 mg/dL (75-99)
[2020-07-18] MEDS: EZETIMIBE 10 MG TAB PO SCH (21:45)
--- NOTE | 2020-07-18 21:56 | CONS ---
CONSULTATION DATE OF DICTATION: 07/18/2020 REASON FOR CONSULTATION: Abdominal pain, nausea, vomiting. HISTORY OF PRESENT ILLNESS: The patient is an 89-year-old pleasant white female admitted to the hospital with acute onset of abdominal pain for the last 2 days' duration with several episodes of nausea and vomiting. She had a bowel movement yesterday. She came to the emergency room and had a CT of the abdomen and pelvis done that showed dilated loops of small bowel consistent with ileus versus mechanical partial small-bowel obstruction. She had an NG tube in place and approximately 300 mL of bilious fluid was aspirated. She still continues to have abdominal pain, mostly in the left lower quadrant area and periumbilical area. She had no further episodes of nausea, vomiting. No fever, chills or night sweats. Never had these symptoms in the past. She has prior history of hysterectomy. PAST MEDICAL HISTORY: Hypertension, diabetes mellitus, hyperlipidemia. MEDICATIONS AT HOME: Januvia, multivitamin, Actos, Zetia and Precose. ALLERGIES: NONE. SOCIAL HISTORY: No smoking. No alcohol use. FAMILY HISTORY: Unremarkable. PAST SURGICAL HISTORY: Hysterectomy, cardiac catheterization, appendectomy, skin cancer removal. REVIEW OF SYSTEMS: CARDIOPULMONARY: No chest pain or shortness of breath. GENITOURINARY: No dysuria or hematuria. MUSCULOSKELETAL: Occasional back pain. NEUROLOGY: Unremarkable. PSYCHIATRY: Unremarkable. ENT/VISION: Unremarkable. CONSTITUTIONAL: No recent weight loss. No fever, chills, night sweats. PHYSICAL EXAMINATION: She appears comfortable. No apparent distress. Vital signs are stable. Blood pressure is 157/53, pulse rate 90, temperature 98.2. HEENT examination unremarkable. Conjunctivae pink. Sclerae anicteric. Oral cavity no lesions. NECK: No JVD or lymph node enlargement. CHEST: Clear to auscultation. HEART: Regular rate and rhythm. ABDOMEN: Distended. It was tympanitic. Bowel sounds sluggish. EXTREMITIES: No pedal edema. NEUROLOGIC: Alert and oriented x3. No focal deficits. LABS: WBC 10.8, hemoglobin 13.3, platelets normal. Basic metabolic panel is within normal limits. BUN 22, creatinine 0.62. AST, ALT, T-bilirubin, alkaline phosphatase are normal. Amylase and lipase are normal. CT of the abdomen showed multiple dilated small bowel loops measuring 3.2 cm and small amount of fluid in the pelvis consistent with partial mechanical small bowel obstruction. IMPRESSION: 1. This lady presented with acute onset of abdominal pain associated with multiple episodes of nausea, vomiting, abdominal distention, and CT scan showed dilated small bowel loops, all of which is consistent with mechanical small bowel obstruction, probably related to adhesions. Surgery has been consulted. Presently has an NG tube in place. She is feeling somewhat better. 2. Nausea and vomiting, improving. RECOMMENDATIONS: 1. Continue NG suction. 2. Management per surgical team. 3. Will follow with you closely. Thank you for this consultation. MMODL / IJN: [id number] /
[2020-07-19] MEDS: SODIUM CHLORIDE 0.9% 1,000 ML IV SCH ×2 (05:20→20:57)
[2020-07-19 05:54] LABS: Basophils % (A) 0 %; Eosinophils # (A) 0.1 k/uL (0-0.7); Eosinophils % (A) 1 %; HCT 33.6 % (34.0-46.0); HGB 11.6 gm/dL (11.4-16.0); Lymphocytes # (A) 0.6 k/uL (1.0-4.8); Lymphocytes % (A) 10 %; MCH 33.6 pg (25.0-35.0); MCHC 34.6 g/dL (31.0-37.0); MCV 97.3 fL (80.0-100.0); Mean Platelet Volume 7.6; Monocytes # (A) 0.4 k/uL (0-1.0); Monocytes % (A) 8 %; Neutrophils # (A) 4.5 k/uL (1.3-7.7); Neutrophils % (A) 80 %; Platelet Count 141 k/uL (150-450); RBC 3.45 m/uL (3.80-5.40); RDW 14.3 % (11.5-15.5); WBC 5.6 k/uL (3.8-10.6)
[2020-07-19 06:56] LABS: Glucose,Whole Blood 111 mg/dL (75-99)
--- NOTE | 2020-07-19 08:04 | XR ---
EXAMINATION TYPE: XR abdomen 2V DATE OF EXAM: 07/19/2020 CLINICAL HISTORY: History of bowel obstruction. Pain and distention. TECHNIQUE: Supine and upright views of the abdomen are obtained. COMPARISON: CT from 2 days earlier.. FINDINGS: Persistent gas dilated small bowel loops with multiple air-fluid levels in the central abdo men. No significant improvement. New nasogastric tube coiled in stomach with decompression noted. Rianna pect new tiny bilateral pleural effusions. Background Mild cardiomegaly. Underlying scoliosis redemonstrated. Overlying vascular calcification is present. IMPRESSION: New nasogastric tube. Findings consistent with persistent distal small bowel obstruction. No significant interval change.
[2020-07-19] MEDS: INSULIN ASPART (NovoLOG) 100 UNIT/ML VIAL SQ SCH ×4 (08:10→21:43)
[2020-07-19] MEDS: PANTOPRAZOLE 40 MG/10 ML VIAL IVP SCH (08:14)
[2020-07-19] MEDS: PIPERACILLIN-TAZOBACTAM 3.375 GM in SODIUM CHLORIDE 0.9% 100 ML IVPB SCH (08:14)
[2020-07-19] MEDS: ENOXAPARIN 40 MG/0.4 ML SYRINGE SQ SCH (08:14)
[2020-07-19 09:51] LABS: African American GFR (CKD) 76.3 (60.0-200.0); Anion Gap 7.8 mmol/L (4.00-12.00); BUN/Creat Ratio 31.25 Ratio (12.00-20.00); Calcium 8.4 mg/dL (8.7-10.3); Carbon Dioxide 26.2 mmol/L (21.6-31.8); Non-African American GFR(CKD) 65.8 (60.0-200.0); Potassium 3.5 mmol/L (3.5-5.5)
[2020-07-19 10:29] LABS: Cancer Antigen 125 15.8 U/mL (0.0-30.1)
--- NOTE | 2020-07-19 10:46 | PN ---
PROGRESS NOTE DATE OF DICTATION: July 19, 2020. HISTORY: The patient is an 89-year-old pleasant white female admitted to hospital with acute small bowel obstruction. She presented with abdominal pain, nausea, vomiting and abdominal distention. She had an NG tube in place since yesterday. CT of the abdomen showed dilated small bowel loops. She had abdominal x-ray this morning which shows persistent small bowel dilation. However the patient is feeling better. The abdominal pain has resolved. No nausea, vomiting has resolved. PHYSICAL EXAMINATION: Appears comfortable. No apparent distress. Vital signs stable. Blood pressure is 113/63, pulse rate 80, temperature 98.3. HEENT examination unremarkable. Conjunctivae pink. Sclerae anicteric. Oral cavity no lesions. NECK: No JVD or lymph node enlargement. CHEST was clear to auscultation. HEART: Regular rate and rhythm. ABDOMEN distended. Bowel sounds are positive. Tympanic. EXTREMITIES: No pedal edema. NEURO: She is alert and oriented x3. No focal deficits. LABS: From today WBC 5.6, hemoglobin 11.6, platelets normal. Basic metabolic panel is within normal limits. IMPRESSION: Small bowel obstruction, probably related to adhesions. Presently has NG tube in place. Abdominal x-rays from today showed persistent dilation of the small bowel loops. Surgery following the patient closely. RECOMMENDATIONS: 1. Continue with NG tube suction. 2. Increase ambulation. 3. Repeat abdominal x-rays tomorrow. 4. We will follow with you closely. Thank you for this consultation. MMODL / IJN: [id number] /
[2020-07-19 11:26] LABS: Glucose,Whole Blood 117 mg/dL (75-99)
--- NOTE | 2020-07-19 13:26 | P.PN ---
Subjective Progress Note Date: 07/19/20 She reports feeling better at the time of my evaluation as she recently had a bowel movement and is passing flatus. She is going down for xrays of her back from previous falls in the past. NGT output of 200 mL this morning. She is NPO and has not had diet. She is thirsty. Family is at bedside. Her abdominal pain is improved. ABDOMEN: No peritonitis STUDIES: AXR reviewed with small bowel distention. No free air. PLAN: 1. Start ice ships and popsicles 2. Will repeat AXR as symptoms are improving. Objective - Vital Signs Vital signs: Vital Signs Temp 97.4 F L 07/19/20 11:16 Pulse 80 07/19/20 11:16 Resp 18 07/19/20 11:16 BP 147/75 07/19/20 11:16 Pulse Ox 98 07/19/20 11:16 Intake & Output 07/18/20 07/19/20 07/19/20 18:59 06:59 18:59 Output Total 300 Balance -300 Weight 51.256 kg Output: Gastric Drainage 300 Other: # Voids 0 1 - Labs CBC & Chem 7: 07/19/20 04:57 07/19/20 04:57 Labs: Abnormal Lab Results - Last 24 Hours (Table) 07/18/20 07/18/20 07/18/20 Range/Units 13:28 17:00 21:21 RBC (3.80-5.40) m/uL Hct (34.0-46.0) % Plt Count (150-450) k/uL Lymphocytes # (1.0-4.8) k/uL BUN/Creatinine Ratio (12.00-20.00) Ratio POC Glucose (mg/dL) 167 H 186 H 110 H (75-99) mg/dL Calcium (8.7-10.3) mg/dL 07/19/20 07/19/20 07/19/20 Range/Units 04:57 04:57 06:53 RBC 3.45 L (3.80-5.40) m/uL Hct 33.6 L (34.0-46.0) % Plt Count 141 L (150-450) k/uL Lymphocytes # 0.6 L (1.0-4.8) k/uL BUN/Creatinine Ratio 31.25 H (12.00-20.00) Ratio POC Glucose (mg/dL) 111 H (75-99) mg/dL Calcium 8.4 L (8.7-10.3) mg/dL 07/19/20 Range/Units 11:19 RBC (3.80-5.40) m/uL Hct (34.0-46.0) % Plt Count (150-450) k/uL Lymphocytes # (1.0-4.8) k/uL BUN/Creatinine Ratio (12.00-20.00) Ratio POC Glucose (mg/dL) 117 H (75-99) mg/dL Calcium (8.7-10.3) mg/dL
--- NOTE | 2020-07-19 13:44 | XR ---
EXAMINATION TYPE: XR ribs LT w pa chest xray DATE OF EXAM: 07/19/2020 CLINICAL HISTORY: Chest and left-sided rib pain after fall injury a few months ago. TECHNIQUE: Single frontal view of the chest is obtained. A frontal and oblique images left-sided ribs . COMPARISON: None FINDINGS: There is chronic parenchymal changes bilaterally without suspicious focal air space opacit y, pleural effusion, or pneumothorax seen. The cardiac silhouette size is mildly enlarged. Orogastri c tube coiled in gastric fundus. The osseous structures are demineralized. Underlying scoliotic curva ture. Dedicated images of the left-sided ribs show no acute displaced fractures. Old mildly displaced later al left fifth rib fracture noted. Old healed fracture deformity left proximal humerus. IMPRESSION: 1. Chronic parenchymal changes and cardiomegaly without acute pulmonary process. 2. No acute displaced left-sided rib fractures.
--- NOTE | 2020-07-19 16:23 | P.PN ---
Subjective Patient is admitted for a partial small bowel obstruction patient is passing gas does have a sluggish bowel sounds patient did have NG tube output of around 200 mL total of 800 mL since yesterday. Constitutional: Denied any fatigue denied any fever. Cardio vascular: denied any chest pain, palpitations Gastrointestinal denied any nausea vomiting Pulmonary: Denied any shortness of breath cough Neurologic denied any new focal deficits All inpatient medications were reviewed and appropriate changes in these medications as dictated in the interval history and assessment and plan. Objective - Vital Signs Vital signs: Vital Signs Temp 97.4 F L 07/19/20 11:16 Pulse 80 07/19/20 11:16 Resp 18 07/19/20 11:16 BP 147/75 07/19/20 11:16 Pulse Ox 98 07/19/20 11:16 Intake & Output 07/18/20 07/19/20 07/19/20 18:59 06:59 18:59 Output Total 300 Balance -300 Weight 51.256 kg Output: Gastric Drainage 300 Other: # Voids 0 1 - Exam PHYSICAL EXAMINATION: GENERAL: The patient is alert and oriented x3, not in any acute distress. Well developed, well nourished. HEENT: Pupils are round and equally reacting to light. EOMI. No scleral icterus. No conjunctival pallor. Normocephalic, atraumatic. No pharyngeal erythema. No thyromegaly. CARDIOVASCULAR: S1 and S2 present. No murmurs, rubs, or gallops. PULMONARY: Chest is clear to auscultation, no wheezing or crackles. ABDOMEN: Mild abdominal distention tympanic bowel sounds are present. Patient has an NG tube in place still draining MUSCULOSKELETAL: No joint swelling or deformity. EXTREMITIES: No cyanosis, clubbing, or pedal edema. NEUROLOGICAL: Gross neurological examination did not reveal any focal deficits. SKIN: No rashes. - Labs CBC & Chem 7: 07/19/20 04:57 07/19/20 04:57 Labs: Abnormal Lab Results - Last 24 Hours (Table) 07/18/20 07/18/20 07/19/20 Range/Units 17:00 21:21 04:57 RBC (3.80-5.40) m/uL Hct (34.0-46.0) % Plt Count (150-450) k/uL Lymphocytes # (1.0-4.8) k/uL BUN/Creatinine Ratio 31.25 H (12.00-20.00) Ratio POC Glucose (mg/dL) 186 H 110 H (75-99) mg/dL Calcium 8.4 L (8.7-10.3) mg/dL 07/19/20 07/19/20 07/19/20 Range/Units 04:57 06:53 11:19 RBC 3.45 L (3.80-5.40) m/uL Hct 33.6 L (34.0-46.0) % Plt Count 141 L (150-450) k/uL Lymphocytes # 0.6 L (1.0-4.8) k/uL BUN/Creatinine Ratio (12.00-20.00) Ratio POC Glucose (mg/dL) 111 H 117 H (75-99) mg/dL Calcium (8.7-10.3) mg/dL Assessment and Plan Plan: -Ileus/mechanical small bowel obstruction: surgery will evaluate the patient. Renew with the NG tube on bowel rest and the patient was given IV fluids we'll increase the IV fluid normal saline to 100 mL/h. Present medications patient has NG tube output patient does have some bowel sounds although x-ray still looks like significant bowel obstruction and patient is passing gas -hypovolemic hyponatremia: Secondary to nausea vomiting improved with IV fluids -Type 2 diabetes mellitus oral hyperglycemic agents will be sliding scale insulin for now -Hyperlipidemia -DVT prophylaxis Lovenox
[2020-07-19 17:11] LABS: Glucose,Whole Blood 90 mg/dL (75-99)
[2020-07-19] MEDS: EZETIMIBE 10 MG TAB PO SCH (20:58)
[2020-07-20] MEDS: SODIUM CHLORIDE 0.9% 1,000 ML IV SCH ×2 (02:38→12:44)
[2020-07-20 05:33] LABS: Basophils % (A) 0 %; Eosinophils % (A) 1 %; HCT 32.6 % (34.0-46.0); HGB 10.6 gm/dL (11.4-16.0); Lymphocytes # (A) 0.4 k/uL (1.0-4.8); Lymphocytes % (A) 13 %; MCH 31.8 pg (25.0-35.0); MCHC 32.5 g/dL (31.0-37.0); MCV 97.8 fL (80.0-100.0); Mean Platelet Volume 7.7; Monocytes # (A) 0.3 k/uL (0-1.0); Monocytes % (A) 9 %; Neutrophils # (A) 2.4 k/uL (1.3-7.7); Neutrophils % (A) 76 %; Platelet Count 127 k/uL (150-450); RBC 3.33 m/uL (3.80-5.40); RDW 13.6 % (11.5-15.5); WBC 3.2 k/uL (3.8-10.6)
[2020-07-20 07:15] LABS: Glucose,Whole Blood 66 mg/dL (75-99)
[2020-07-20] MEDS ORDERED: DEXTROSE 50% SYRINGE 50 ML IVP STA (07:18)
[2020-07-20] MEDS: INSULIN ASPART (NovoLOG) 100 UNIT/ML VIAL SQ SCH ×4 (07:29→20:44)
[2020-07-20 08:10] LABS: Glucose,Whole Blood 141 mg/dL (75-99)
--- NOTE | 2020-07-20 08:13 | XR ---
2 view abdomen HISTORY: Bowel obstruction 2 views the abdomen on 3 images correlated to prior exam 07/19/2020 There are air-fluid levels, distended loops of small bowel present. Possible small effusions and asso ciated atelectasis noted. NG tube is present, distal tip is likely within the stomach, tube may be ki nked. Probable vascular calcifications are present within the pelvis. There is a scoliosis, degenerat dave disc change in the visualized spine. No evident pneumoperitoneum. IMPRESSION: Correlate for small bowel obstruction. NG tube may be kinked.
[2020-07-20] MEDS: PANTOPRAZOLE 40 MG/10 ML VIAL IVP SCH (10:00)
[2020-07-20] MEDS: ENOXAPARIN 40 MG/0.4 ML SYRINGE SQ SCH (10:00)
[2020-07-20 12:08] LABS: Glucose,Whole Blood 102 mg/dL (75-99)
--- NOTE | 2020-07-20 12:49 | PN ---
PROGRESS NOTE DATE OF DICTATION: July 20, 2020 HISTORY: Patient is an 89-year-old pleasant white female admitted to the hospital with acute small bowel obstruction. Has an NG tube in place for the last 2 days. She is feeling better. Her abdomen is less distended. Continues to have NG tube drainage about 300 mL in the last 24 hours. She had 3 bowel movements in the last 24 hours. Overall she is feeling better. Abdominal pain has resolved. Nausea, vomiting has resolved. PHYSICAL EXAMINATION: Appears comfortable in no apparent distress. Vital signs stable. Blood pressure is 109/49, pulse rate 81, temperature 98.3. HEENT examination unremarkable. Conjunctivae pink. Sclerae anicteric. Oral cavity no lesions. NECK: No JVD or lymph node enlargement. CHEST was clear to auscultation. HEART: Regular rate and rhythm. ABDOMEN is slightly distended. It was very soft. It was nontender. EXTREMITIES: No pedal edema. NEURO: She is alert and oriented x3. No focal deficits. LABS: WBC 3.2, hemoglobin 10.6, platelets 127. Rest of the labs are within normal limits. IMPRESSION: Acute small-bowel obstruction, status post NG tube placement for the last 3 days. Clinically appears to be improving. Abdominal x-rays from today show persistent dilation of small bowel loops. Dr. Santiago following the patient closely. Patient did have 3 bowel movements in the last 24 hours. NG tube drainage is gradually improving. Abdominal x-rays from today however show persistent dilation of small bowel loops. RECOMMENDATIONS: 1. Continue with NG tube drainage. 2. Obtain abdominal x-rays tomorrow morning. 3. Continue with IV fluids and keep her n.p.o. 4. Repeat labs in the morning. 5. We will follow with you. Thank you for this consultation. MMODL / IJN: [id number] /
--- NOTE | 2020-07-20 12:57 | P.PN ---
Subjective Patient is admitted for a partial small bowel obstruction patient is passing gas does have a sluggish bowel sounds patient did have NG tube output of around 200 mL total of 800 mL since yesterday. 07/20/2020 patient had output of around 1 50 mL from the NG tube did have bowel movements and does have bowel sounds. Repeat abdominal x-ray still showing bowel obstruction. Patient blood sugars are bit low patient will be switched to D5 normal saline at 75 mL per hour. Constitutional: Denied any fatigue denied any fever. Cardio vascular: denied any chest pain, palpitations Gastrointestinal denied any nausea vomiting Pulmonary: Denied any shortness of breath cough Neurologic denied any new focal deficits All inpatient medications were reviewed and appropriate changes in these medications as dictated in the interval history and assessment and plan. Objective - Vital Signs Vital signs: Vital Signs Temp 98.3 F 07/20/20 11:26 Pulse 75 07/20/20 11:26 Resp 18 07/20/20 11:26 BP 116/62 07/20/20 11:26 Pulse Ox 98 07/20/20 11:26 Intake & Output 07/19/20 07/20/20 07/20/20 18:59 06:59 18:59 Intake Total 0 Output Total 200 100 Balance -200 -100 Intake: Oral 0 Output: Gastric Drainage 200 100 Other: Voiding Method Toilet Toilet # Voids 2 # Bowel Movements 1 - Exam PHYSICAL EXAMINATION: GENERAL: The patient is alert and oriented x3, not in any acute distress. Well developed, well nourished. HEENT: Pupils are round and equally reacting to light. EOMI. No scleral icterus. No conjunctival pallor. Normocephalic, atraumatic. No pharyngeal erythema. No thyromegaly. CARDIOVASCULAR: S1 and S2 present. No murmurs, rubs, or gallops. PULMONARY: Chest is clear to auscultation, no wheezing or crackles. ABDOMEN:no abdominal distention bowel sounds are present MUSCULOSKELETAL: No joint swelling or deformity. EXTREMITIES: No cyanosis, clubbing, or pedal edema. NEUROLOGICAL: Gross neurological examination did not reveal any focal deficits. SKIN: No rashes. - Labs CBC & Chem 7: 07/20/20 04:13 07/19/20 04:57 Labs: Abnormal Lab Results - Last 24 Hours (Table) 07/20/20 07/20/20 07/20/20 Range/Units 04:13 07:04 08:09 WBC 3.2 L (3.8-10.6) k/uL RBC 3.33 L (3.80-5.40) m/uL Hgb 10.6 L (11.4-16.0) gm/dL Hct 32.6 L (34.0-46.0) % Plt Count 127 L (150-450) k/uL Lymphocytes # 0.4 L (1.0-4.8) k/uL POC Glucose (mg/dL) 66 L 141 H (75-99) mg/dL 07/20/20 Range/Units 11:29 WBC (3.8-10.6) k/uL RBC (3.80-5.40) m/uL Hgb (11.4-16.0) gm/dL Hct (34.0-46.0) % Plt Count (150-450) k/uL Lymphocytes # (1.0-4.8) k/uL POC Glucose (mg/dL) 102 H (75-99) mg/dL Assessment and Plan Plan: -Ileus/mechanical small bowel obstruction: surgery will evaluate the patient. continue with the NG tube on bowel rest and IV fluids will be changed to D5 normal saline. -hypovolemic hyponatremia: Secondary to nausea vomiting improved with IV fluids -Type 2 diabetes mellitus oral hyperglycemic agents will be sliding scale insulin for now -Hyperlipidemia -DVT prophylaxis Lovenox
--- NOTE | 2020-07-20 14:17 | P.PN ---
Subjective Progress Note Date: 07/20/20 Principal diagnosis: She feels well. She is passing some flatus. She is having bowel movements today, small. She is tolerating diet. ABDOMEN: No peritonitis STUDIES: AXR reviewed with persistent small bowel dilation PLAN: 1. Pull back NG by 5-cm due to low output and kink NG tube 2. Repeat XR as she reports clinical improvement since films this morning Objective - Vital Signs Vital signs: Vital Signs Temp 98.3 F 07/20/20 11:26 Pulse 75 07/20/20 11:26 Resp 18 07/20/20 11:26 BP 116/62 07/20/20 11:26 Pulse Ox 98 07/20/20 11:26 Intake & Output 07/19/20 07/20/20 07/20/20 18:59 06:59 18:59 Intake Total 0 800 Output Total 200 100 1 Balance -200 -100 799 Intake: Intake, IV Titration 800 Amount Sodium Chloride 0.9% 1, 800 000 ml @ 100 mls/hr IV . Q10H [facility] Rx#:[id number] Oral 0 Output: Gastric Drainage 200 100 Stool 1 Other: Voiding Method Toilet Toilet # Voids 2 2 # Bowel Movements 1 - Labs CBC & Chem 7: 07/20/20 04:13 07/19/20 04:57 Labs: Abnormal Lab Results - Last 24 Hours (Table) 07/20/20 07/20/20 07/20/20 Range/Units 04:13 07:04 08:09 WBC 3.2 L (3.8-10.6) k/uL RBC 3.33 L (3.80-5.40) m/uL Hgb 10.6 L (11.4-16.0) gm/dL Hct 32.6 L (34.0-46.0) % Plt Count 127 L (150-450) k/uL Lymphocytes # 0.4 L (1.0-4.8) k/uL POC Glucose (mg/dL) 66 L 141 H (75-99) mg/dL 07/20/20 Range/Units 11:29 WBC (3.8-10.6) k/uL RBC (3.80-5.40) m/uL Hgb (11.4-16.0) gm/dL Hct (34.0-46.0) % Plt Count (150-450) k/uL Lymphocytes # (1.0-4.8) k/uL POC Glucose (mg/dL) 102 H (75-99) mg/dL
--- NOTE | 2020-07-20 15:42 | XR ---
Abdomen HISTORY: NG tube placement Single frontal view of the abdomen Correlation to prior exam same dated earlier time NG tube appears coiled within the abdomen. Possible caking again noted. There are changes of small aliya wel obstruction. No pneumoperitoneum. IMPRESSION: There is no significant interval change.
[2020-07-20] MEDS: DEXTROSE 5%-0.9% NACL 1,000 ML IV SCH (16:19)
[2020-07-20 17:16] LABS: Glucose,Whole Blood 74 mg/dL (75-99)
[2020-07-20 20:41] LABS: Glucose,Whole Blood 88 mg/dL (75-99)
[2020-07-20] MEDS: EZETIMIBE 10 MG TAB PO SCH (20:46)
[2020-07-21 02:26] LABS: Glucose,Whole Blood 123 mg/dL (75-99)
[2020-07-21 03:58] LABS: HCT 33.6 % (34.0-46.0); HGB 10.8 gm/dL (11.4-16.0); MCH 31.8 pg (25.0-35.0); MCHC 32.3 g/dL (31.0-37.0); MCV 98.4 fL (80.0-100.0); Mean Platelet Volume 7.3; Platelet Count 139 k/uL (150-450); RBC 3.41 m/uL (3.80-5.40); RDW 14.2 % (11.5-15.5)
[2020-07-21] MEDS: DEXTROSE 5%-0.9% NACL 1,000 ML IV SCH ×2 (06:47→17:39)
[2020-07-21 07:03] LABS: Glucose,Whole Blood 151 mg/dL (75-99)
--- NOTE | 2020-07-21 07:47 | XR ---
EXAMINATION TYPE: XR abdomen 2V DATE OF EXAM: 07/21/2020 COMPARISON: 07/20/2000 HISTORY: Of bowel obstruction TECHNIQUE: One view abdominal series FINDINGS: Persistent severely dilated small bowel loops. Scoliosis and degenerative changes spine. Calcificatio n left upper quadrant and NG tube stable. Bilateral lower lobe infiltrate and small effusion. Arthrop athy of the hips. IMPRESSION: 1. Findings suggestive of small bowel obstruction. There may be a kink within the NG tube correlate c linically repositioning. 2. Bilateral lower lobe infiltrate and small effusion
[2020-07-21] MEDS: PANTOPRAZOLE 40 MG/10 ML VIAL IVP SCH (08:31)
[2020-07-21] MEDS: INSULIN ASPART (NovoLOG) 100 UNIT/ML VIAL SQ SCH ×4 (08:32→21:43)
[2020-07-21] MEDS: ENOXAPARIN 40 MG/0.4 ML SYRINGE SQ SCH (08:32)
[2020-07-21 10:12] LABS: African American GFR (CKD) 107.8 (60.0-200.0); Anion Gap 8.4 mmol/L (4.00-12.00); BUN/Creat Ratio 37.5 Ratio (12.00-20.00); Calcium 7.8 mg/dL (8.7-10.3); Carbon Dioxide 22.6 mmol/L (21.6-31.8); Potassium 2.9 mmol/L (3.5-5.5)
[2020-07-21 11:46] LABS: Glucose,Whole Blood 128 mg/dL (75-99)
[2020-07-21] MEDS ORDERED: POTASSIUM CHLORIDE ER 20 MEQ TAB.ER PO STA (12:20)
[2020-07-21] MEDS: POTASSIUM CHLORIDE 10 MEQ in WATER FOR INJECTION 1 100ML.BAG IVPB SCH ×4 (13:17→16:43)
--- NOTE | 2020-07-21 13:59 | P.PN ---
<Allyson Liz - Last Filed: 07/21/20 13:49> Subjective Progress Note Date: 07/21/20 CHIEF COMPLAINT: Abdominal pain HISTORY OF PRESENT ILLNESS: Patient is being followed for small bowel obstruction. She is still reporting abdominal distention. She did have 2 bowel movements over the weekend and one small balloon bowel movement this morning which is very hard small balls of stool. She has NG tube in place she had 1100 out through the night. She is currently nothing by mouth. White count 4.0 hemoglobin 10.8. CEA 3.6 CA-125 15.8 potassium 2.9. Abdominal x-ray findings suggests small bowel obstruction. PHYSICAL EXAM: VITAL SIGNS: Reviewed. GENERAL: Well-developed in no acute distress. HEENT: No sclera icterus. Extraocular movements grossly intact. Moist buccal mucosa. Head is atraumatic, normocephalic. ABDOMEN: Soft. Distended. Lower abdominal tenderness with palpation NEUROLOGIC: Alert and oriented. Cranial nerves II through XII grossly intact. ASSESSMENT: 1. Mechanical small bowel obstruction 2. Family history significant for mother with colon cancer 3. History of diabetes mellitus type 2 4. Chronic constipation 5. History of appendectomy 6. Hypokalemia PLAN: -Patient is scheduled for exploratory laparotomy and possible bowel resection with Dr. Price tomorrow -Continue NG tube for decompression -Social work on consult for discharge planning to [facility] -Replace potassium -Repeat potassium level at 4pm [facility] note has been reviewed by physician. Signing provider agrees with the documented findings, assessment, and plan of care. Objective - Vital Signs Vital signs: Vital Signs Temp 98.2 F 07/21/20 11:55 Pulse 74 07/21/20 11:55 Resp 16 07/21/20 11:55 BP 122/62 07/21/20 11:55 Pulse Ox 98 07/21/20 11:55 Intake & Output 07/20/20 07/21/20 07/21/20 18:59 06:59 18:59 Intake Total 800 975 Output Total 1101 101 Balance -301 874 Weight 51.256 kg Intake: Intake, IV Titration 800 900 Amount Dextrose 5%-0.9% NaCl 1, 900 000 ml @ 75 mls/hr IV . [id number] [facility] Rx#:[id number] Sodium Chloride 0.9% 1, 800 000 ml @ 100 mls/hr IV . Q10H [facility] Rx#:[id number] Oral 75 Output: Gastric Drainage 1100 100 Stool 1 1 Other: Voiding Method Toilet Toilet Toilet # Voids 2 2 - Labs CBC & Chem 7: 07/21/20 03:29 07/21/20 03:29 Labs: Abnormal Lab Results - Last 24 Hours (Table) 07/20/20 07/21/20 07/21/20 Range/Units 17:14 02:23 03:29 RBC 3.41 L (3.80-5.40) m/uL Hgb 10.8 L (11.4-16.0) gm/dL Hct 33.6 L (34.0-46.0) % Plt Count 139 L (150-450) k/uL Potassium (3.5-5.5) mmol/L Chloride (96-109) mmol/L Creatinine (0.6-1.5) mg/dL BUN/Creatinine Ratio (12.00-20.00) Ratio Glucose (70-110) mg/dL POC Glucose (mg/dL) 74 L 123 H (75-99) mg/dL Calcium (8.7-10.3) mg/dL 07/21/20 07/21/20 07/21/20 Range/Units 03:29 06:59 11:45 RBC (3.80-5.40) m/uL Hgb (11.4-16.0) gm/dL Hct (34.0-46.0) % Plt Count (150-450) k/uL Potassium 2.9 L (3.5-5.5) mmol/L Chloride 110 H (96-109) mmol/L Creatinine 0.4 L (0.6-1.5) mg/dL BUN/Creatinine Ratio 37.50 H (12.00-20.00) Ratio Glucose 135 H (70-110) mg/dL POC Glucose (mg/dL) 151 H 128 H (75-99) mg/dL Calcium 7.8 L (8.7-10.3) mg/dL <Jose Manuel Price - Last Filed: 07/21/20 16:06> Subjective As above. Patient continues to experience bloating. No flatus. X-rays still showed dilated small bowel loops. Patient's potassium is low at 2.9. Tumor markers noted to be normal think fully. Clinical scenario discussed in detail with the patient and also her son. We'll tentatively plan exploratory laparotomy tomorrow. Correct electrolyte imbalance. Risks of bleeding, infection, possible need for bowel resection, anastomotic dehiscence, hernia, possible need for ostomy, cardiac and respiratory complications reviewed. She understands and wishes to proceed. Objective - Vital Signs Vital signs: Vital Signs Temp 98.2 F 07/21/20 11:55 Pulse 74 07/21/20 11:55 Resp 16 07/21/20 11:55 BP 122/62 07/21/20 11:55 Pulse Ox 98 07/21/20 11:55 Intake & Output 07/20/20 07/21/20 07/21/20 18:59 06:59 18:59 Intake Total 800 975 700 Output Total 1101 101 Balance -301 874 700 Weight 51.256 kg Intake: Intake, IV Titration 800 900 700 Amount Dextrose 5%-0.9% NaCl 1, 900 600 000 ml @ 75 mls/hr IV . [id number] [facility] Rx#:[id number] Potassium Chloride 10 meq 100 In Water For Injection 1 100ml.bag @ 100 mls/hr IVPB Q1HR [facility] Rx#: [id number] Sodium Chloride 0.9% 1, 800 000 ml @ 100 mls/hr IV . Q10H [facility] Rx#:[id number] Oral 75 Output: Gastric Drainage 1100 100 Stool 1 1 Other: Voiding Method Toilet Toilet Toilet # Voids 2 2 - Labs CBC & Chem 7: 07/21/20 03:29 07/21/20 03:29 Labs: Abnormal Lab Results - Last 24 Hours (Table) 07/20/20 07/21/20 07/21/20 Range/Units 17:14 02:23 03:29 RBC 3.41 L (3.80-5.40) m/uL Hgb 10.8 L (11.4-16.0) gm/dL Hct 33.6 L (34.0-46.0) % Plt Count 139 L (150-450) k/uL Potassium (3.5-5.5) mmol/L Chloride (96-109) mmol/L Creatinine (0.6-1.5) mg/dL BUN/Creatinine Ratio (12.00-20.00) Ratio Glucose (70-110) mg/dL POC Glucose (mg/dL) 74 L 123 H (75-99) mg/dL Calcium (8.7-10.3) mg/dL 07/21/20 07/21/20 07/21/20 Range/Units 03:29 06:59 11:45 RBC (3.80-5.40) m/uL Hgb (11.4-16.0) gm/dL Hct (34.0-46.0) % Plt Count (150-450) k/uL Potassium 2.9 L (3.5-5.5) mmol/L Chloride 110 H (96-109) mmol/L Creatinine 0.4 L (0.6-1.5) mg/dL BUN/Creatinine Ratio 37.50 H (12.00-20.00) Ratio Glucose 135 H (70-110) mg/dL POC Glucose (mg/dL) 151 H 128 H (75-99) mg/dL Calcium 7.8 L (8.7-10.3) mg/dL
--- NOTE | 2020-07-21 14:56 | P.PN ---
Subjective Patient is admitted for a partial small bowel obstruction patient is passing gas does have a sluggish bowel sounds patient did have NG tube output of around 200 mL total of 800 mL since yesterday. 07/20/2020 patient had output of around 1 50 mL from the NG tube did have bowel movements and does have bowel sounds. Repeat abdominal x-ray still showing bowel obstruction. Patient blood sugars are bit low patient will be switched to D5 normal saline at 75 mL per hour. 07/21/2020 Since the imaging didn't show any significant improvement in bowel obstruction and patient has a NG tube output of 1100 last night patient will undergo laparotomy tomorrow. Constitutional: Denied any fatigue denied any fever. Cardio vascular: denied any chest pain, palpitations Gastrointestinal denied any nausea vomiting Pulmonary: Denied any shortness of breath cough Neurologic denied any new focal deficits All inpatient medications were reviewed and appropriate changes in these medications as dictated in the interval history and assessment and plan. Objective - Vital Signs Vital signs: Vital Signs Temp 98.2 F 07/21/20 11:55 Pulse 74 07/21/20 11:55 Resp 16 07/21/20 11:55 BP 122/62 07/21/20 11:55 Pulse Ox 98 07/21/20 11:55 Intake & Output 07/20/20 07/21/20 07/21/20 18:59 06:59 18:59 Intake Total 800 975 700 Output Total 1101 101 Balance -301 874 700 Weight 51.256 kg Intake: Intake, IV Titration 800 900 700 Amount Dextrose 5%-0.9% NaCl 1, 900 600 000 ml @ 75 mls/hr IV . [id number] [facility] Rx#:[id number] Potassium Chloride 10 meq 100 In Water For Injection 1 100ml.bag @ 100 mls/hr IVPB Q1HR [facility] Rx#: [id number] Sodium Chloride 0.9% 1, 800 000 ml @ 100 mls/hr IV . Q10H [facility] Rx#:[id number] Oral 75 Output: Gastric Drainage 1100 100 Stool 1 1 Other: Voiding Method Toilet Toilet Toilet # Voids 2 2 - Exam PHYSICAL EXAMINATION: GENERAL: The patient is alert and oriented x3, not in any acute distress. Well developed, well nourished. HEENT: Pupils are round and equally reacting to light. EOMI. No scleral icterus. No conjunctival pallor. Normocephalic, atraumatic. No pharyngeal erythema. No thyromegaly. CARDIOVASCULAR: S1 and S2 present. No murmurs, rubs, or gallops. PULMONARY: Chest is clear to auscultation, no wheezing or crackles. ABDOMEN:no abdominal distention bowel sounds are present MUSCULOSKELETAL: No joint swelling or deformity. EXTREMITIES: No cyanosis, clubbing, or pedal edema. NEUROLOGICAL: Gross neurological examination did not reveal any focal deficits. SKIN: No rashes. - Labs CBC & Chem 7: 07/21/20 03:29 07/21/20 03:29 Labs: Abnormal Lab Results - Last 24 Hours (Table) 07/20/20 07/21/20 07/21/20 Range/Units 17:14 02:23 03:29 RBC 3.41 L (3.80-5.40) m/uL Hgb 10.8 L (11.4-16.0) gm/dL Hct 33.6 L (34.0-46.0) % Plt Count 139 L (150-450) k/uL Potassium (3.5-5.5) mmol/L Chloride (96-109) mmol/L Creatinine (0.6-1.5) mg/dL BUN/Creatinine Ratio (12.00-20.00) Ratio Glucose (70-110) mg/dL POC Glucose (mg/dL) 74 L 123 H (75-99) mg/dL Calcium (8.7-10.3) mg/dL 07/21/20 07/21/20 07/21/20 Range/Units 03:29 06:59 11:45 RBC (3.80-5.40) m/uL Hgb (11.4-16.0) gm/dL Hct (34.0-46.0) % Plt Count (150-450) k/uL Potassium 2.9 L (3.5-5.5) mmol/L Chloride 110 H (96-109) mmol/L Creatinine 0.4 L (0.6-1.5) mg/dL BUN/Creatinine Ratio 37.50 H (12.00-20.00) Ratio Glucose 135 H (70-110) mg/dL POC Glucose (mg/dL) 151 H 128 H (75-99) mg/dL Calcium 7.8 L (8.7-10.3) mg/dL Assessment and Plan Plan: -Ileus/mechanical small bowel obstruction: since still has significant NG tube output. Patient will undergo laparotomy tomorrow -hypovolemic hyponatremia: Secondary to nausea vomiting improved with IV fluids -Type 2 diabetes mellitus oral hyperglycemic agents will be sliding scale insulin for now -Hyperlipidemia -DVT prophylaxis Lovenox
--- NOTE | 2020-07-21 14:56 | P.PN ---
Subjective Progress Note Date: 07/21/20 Principal diagnosis: Abdominal pain, small bowel obstruction This is a 89-year-old white female patient who was admitted to the hospital with acute small bowel obstruction. She had an NG tube placed for the last 3 days. She denies any Pain, Nausea, or Vomiting. She states she had a very small bowel movement this morning. She has less abdominal distention. Continues to be nothing by mouth. She had a repeat abdominal x-ray with findings suggestive of small bowel obstruction. There may be a kink within the NG tube correlate clinically repositioning. Bilateral lower lobe infiltrate and small effusion. Objective - Vital Signs Vital signs: Vital Signs Temp 98.2 F 07/21/20 11:55 Pulse 74 07/21/20 11:55 Resp 16 07/21/20 11:55 BP 122/62 07/21/20 11:55 Pulse Ox 98 07/21/20 11:55 Intake & Output 07/20/20 07/21/20 07/21/20 18:59 06:59 18:59 Intake Total 800 975 700 Output Total 1101 101 Balance -301 874 700 Weight 51.256 kg Intake: Intake, IV Titration 800 900 700 Amount Dextrose 5%-0.9% NaCl 1, 900 600 000 ml @ 75 mls/hr IV . [id number] [facility] Rx#:[id number] Potassium Chloride 10 meq 100 In Water For Injection 1 100ml.bag @ 100 mls/hr IVPB Q1HR [facility] Rx#: [id number] Sodium Chloride 0.9% 1, 800 000 ml @ 100 mls/hr IV . Q10H [facility] Rx#:[id number] Oral 75 Output: Gastric Drainage 1100 100 Stool 1 1 Other: Voiding Method Toilet Toilet Toilet # Voids 2 2 - Exam General appearance: The patient is alert, oriented, in no acute distress. HET: Head is normocephalic and atraumatic. Conjunctivae pink. Sclera anicteric. Neck: Supple without lymphadenopathy. Trachea midline. Abdomen: Soft, nontender, distended. No palpable organomegaly. Extremities: Normal skin color and turgor. No pedal edema. Neurological: No focal deficits. Alert and oriented 3 - Labs CBC & Chem 7: 07/21/20 03:29 07/21/20 03:29 Labs: Abnormal Lab Results - Last 24 Hours (Table) 07/20/20 07/21/20 07/21/20 Range/Units 17:14 02:23 03:29 RBC 3.41 L (3.80-5.40) m/uL Hgb 10.8 L (11.4-16.0) gm/dL Hct 33.6 L (34.0-46.0) % Plt Count 139 L (150-450) k/uL Potassium (3.5-5.5) mmol/L Chloride (96-109) mmol/L Creatinine (0.6-1.5) mg/dL BUN/Creatinine Ratio (12.00-20.00) Ratio Glucose (70-110) mg/dL POC Glucose (mg/dL) 74 L 123 H (75-99) mg/dL Calcium (8.7-10.3) mg/dL 07/21/20 07/21/20 07/21/20 Range/Units 03:29 06:59 11:45 RBC (3.80-5.40) m/uL Hgb (11.4-16.0) gm/dL Hct (34.0-46.0) % Plt Count (150-450) k/uL Potassium 2.9 L (3.5-5.5) mmol/L Chloride 110 H (96-109) mmol/L Creatinine 0.4 L (0.6-1.5) mg/dL BUN/Creatinine Ratio 37.50 H (12.00-20.00) Ratio Glucose 135 H (70-110) mg/dL POC Glucose (mg/dL) 151 H 128 H (75-99) mg/dL Calcium 7.8 L (8.7-10.3) mg/dL Assessment and Plan (1) Small bowel obstruction Narrative/Plan: Patient is status post NG tube placement for the last 3 days duration. Clinically appears to be improving. Abdominal x-rays from today shows persistent dilation of small bowel loops consistent with small bowel obstruction. Dr. Coreas and Dr. Price following patient closely. Patient did have a small bowel movement this morning, nausea and vomiting has been improved however abdominal x-rays from today still show persistent dilation of small bowel loops. Current Visit: Yes Status: Acute Code(s): K56.609 - UNSP INTESTNL OBST, UNSP TO PARTIAL VERSUS COMPLETE OBST SNOMED Code(s): 925244658 (2) Abdominal pain Current Visit: Yes Status: Acute Code(s): R10.9 - UNSPECIFIED ABDOMINAL PAIN SNOMED Code(s): 24789771 Plan: 1. Continue with NG tube drainage 2. Continue with IV fluids and keep nothing by mouth 3. Continue with recommendations per surgical services, patient is scheduled for exploratory laparotomy possible bowel resection tomorrow Dr. Price. 4. We will sign off at this time, please don't hesitate to call us back with any questions or concerns. The impression and plan of care has been dictated as directed. I performed a history and examination of this patient, discussed the same with the dictator. I agree with the dictator's note ,documented as a scribe. Any additional findings or plans will be noted.
[2020-07-21 17:22] LABS: Glucose,Whole Blood 134 mg/dL (75-99)
[2020-07-21] MEDS ORDERED: Potassium Replacement Protocol 1 EACH MISC MISCELLANE PRN ×2 (18:04→20:46)
[2020-07-21 20:42] LABS: Glucose,Whole Blood 141 mg/dL (75-99)
[2020-07-21] MEDS: EZETIMIBE 10 MG TAB PO SCH (21:41)
[2020-07-21] MEDS: POTASSIUM CHLORIDE ER 20 MEQ TAB.ER PO SCH ×2 (21:41→21:44)
[2020-07-22 00:42] LABS: INR 1.07 (0.90-1.11); Prothrombin Time 11.4 sec (9.9-11.9)
[2020-07-22 05:15] LABS: Basophils % (A) 0 %; Eosinophils # (A) 0.1 k/uL (0-0.7); Eosinophils % (A) 2 %; HCT 31.9 % (34.0-46.0); HGB 10.3 gm/dL (11.4-16.0); Lymphocytes # (A) 0.5 k/uL (1.0-4.8); Lymphocytes % (A) 15 %; MCH 31.2 pg (25.0-35.0); MCHC 32.1 g/dL (31.0-37.0); MCV 97.1 fL (80.0-100.0); Mean Platelet Volume 7.6; Monocytes # (A) 0.2 k/uL (0-1.0); Monocytes % (A) 6 %; Neutrophils # (A) 2.6 k/uL (1.3-7.7); Neutrophils % (A) 75 %; Platelet Count 132 k/uL (150-450); RBC 3.29 m/uL (3.80-5.40); RDW 13.7 % (11.5-15.5); WBC 3.4 k/uL (3.8-10.6)
[2020-07-22 07:05] LABS: Glucose,Whole Blood 166 mg/dL (75-99)
[2020-07-22] MEDS: ENOXAPARIN 40 MG/0.4 ML SYRINGE SQ SCH (07:45)
[2020-07-22] MEDS: PANTOPRAZOLE 40 MG/10 ML VIAL IVP SCH (07:46)
[2020-07-22] MEDS: INSULIN ASPART (NovoLOG) 100 UNIT/ML VIAL SQ SCH ×4 (07:47→21:59)
--- NOTE | 2020-07-22 09:54 | P.PN ---
Subjective Patient is admitted for a partial small bowel obstruction patient is passing gas does have a sluggish bowel sounds patient did have NG tube output of around 200 mL total of 800 mL since yesterday. 07/20/2020 patient had output of around 1 50 mL from the NG tube did have bowel movements and does have bowel sounds. Repeat abdominal x-ray still showing bowel obstruction. Patient blood sugars are bit low patient will be switched to D5 normal saline at 75 mL per hour. 07/21/2020 Since the imaging didn't show any significant improvement in bowel obstruction and patient has a NG tube output of 1100 last night patient will undergo laparotomy tomorrow. 07/22/2020 Patient is still having NG tube output of 202 abdominal x-ray still shows signif icant bowel obstruction all the abdomen is soft and does have bowel sounds. Patient probably will need laparotomy but patient the still thinking about whether to go for surgery or not Constitutional: Denied any fatigue denied any fever. Cardio vascular: denied any chest pain, palpitations Gastrointestinal denied any nausea vomiting Pulmonary: Denied any shortness of breath cough Neurologic denied any new focal deficits All inpatient medications were reviewed and appropriate changes in these m edications as dictated in the interval history and assessment and plan. Objective - Vital Signs Vital signs: Vital Signs Temp 98.8 F 07/22/20 05:00 Pulse 65 07/22/20 05:00 Resp 17 07/22/20 05:00 BP 132/69 07/22/20 05:00 Pulse Ox 95 07/22/20 05:00 Intake & Output 07/21/20 07/22/20 07/22/20 18:59 06:59 18:59 Intake Total 700 900 Output Total 101 Balance 700 799 Weight 51.256 kg Intake: Intake, IV Titration 700 900 Amount Dextrose 5%-0.9% NaCl 1, 600 900 000 ml @ 75 mls/hr IV . [id number] [facility] Rx#:[id number] Potassium Chloride 10 meq 100 In Water For Injection 1 100ml.bag @ 100 mls/hr IVPB Q1HR [facility] Rx#: [id number] Oral 0 Output: Gastric Drainage 100 Stool 1 Other: Voiding Method Toilet Toilet # Voids 3 - Exam PHYSICAL EXAMINATION: GENERAL: The patient is alert and oriented x3, not in any acute distress. Well developed, well nourished. HEENT: Pupils are round and equally reacting to light. EOMI. No scleral icterus. No conjunctival pallor. Normocephalic, atraumatic. No pharyngeal erythema. No thyromegaly. CARDIOVASCULAR: S1 and S2 present. No murmurs, rubs, or gallops. PULMONARY: Chest is clear to auscultation, no wheezing or crackles. ABDOMEN:no abdominal distention bowel sounds are present MUSCULOSKELETAL: No joint swelling or deformity. EXTREMITIES: No cyanosis, clubbing, or pedal edema. NEUROLOGICAL: Gross neurological examination did not reveal any focal deficits. SKIN: No rashes. - Labs CBC & Chem 7: 07/22/20 04:40 07/21/20 23:48 Labs: Abnormal Lab Results - Last 24 Hours (Table) 07/21/20 07/21/20 07/21/20 Range/Units 03:29 11:45 15:33 WBC (3.8-10.6) k/uL RBC (3.80-5.40) m/uL Hgb (11.4-16.0) gm/dL Hct (34.0-46.0) % Plt Count (150-450) k/uL Lymphocytes # (1.0-4.8) k/uL Potassium 2.9 L 3.2 L (3.5-5.5) mmol/L Chloride 110 H (96-109) mmol/L Creatinine 0.4 L (0.6-1.5) mg/dL BUN/Creatinine Ratio 37.50 H (12.00-20.00) Ratio Glucose 135 H (70-110) mg/dL POC Glucose (mg/dL) 128 H (75-99) mg/dL Calcium 7.8 L (8.7-10.3) mg/dL 07/21/20 07/21/20 07/21/20 Range/Units 17:21 18:26 20:40 WBC (3.8-10.6) k/uL RBC (3.80-5.40) m/uL Hgb (11.4-16.0) gm/dL Hct (34.0-46.0) % Plt Count (150-450) k/uL Lymphocytes # (1.0-4.8) k/uL Potassium 3.1 L (3.5-5.5) mmol/L Chloride (96-109) mmol/L Creatinine (0.6-1.5) mg/dL BUN/Creatinine Ratio (12.00-20.00) Ratio Glucose (70-110) mg/dL POC Glucose (mg/dL) 134 H 141 H (75-99) mg/dL Calcium (8.7-10.3) mg/dL 07/21/20 07/22/20 07/22/20 Range/Units 23:48 04:40 07:04 WBC 3.4 L (3.8-10.6) k/uL RBC 3.29 L (3.80-5.40) m/uL Hgb 10.3 L (11.4-16.0) gm/dL Hct 31.9 L (34.0-46.0) % Plt Count 132 L (150-450) k/uL Lymphocytes # 0.5 L (1.0-4.8) k/uL Potassium 3.4 L (3.5-5.5) mmol/L Chloride (96-109) mmol/L Creatinine (0.6-1.5) mg/dL BUN/Creatinine Ratio (12.00-20.00) Ratio Glucose (70-110) mg/dL POC Glucose (mg/dL) 166 H (75-99) mg/dL Calcium (8.7-10.3) mg/dL Assessment and Plan Plan: -Ileus/mechanical small bowel obstruction: since still has significant NG tube output. patient most probably will need laparotomy -hypovolemic hyponatremia: Secondary to nausea vomiting improved with IV fluids, patient is presently hyper pleuraeand mildly elevated sodium as well patient will be switched to D5 half-normal saline. -Small bilateral pleural effusions patient doesn't have any hypoxemia at this time patient will need IV fluids which were continued for now -Type 2 diabetes mellitus, blood sugars are actually low patient will be continued on D5 half-normal saline -Hyperlipidemia -DVT prophylaxis Lovenox
--- NOTE | 2020-07-22 10:09 | XR ---
2 view abdomen HISTORY: Bowel obstruction 2 views of the abdomen correlated to prior exam 07/21/2020 Gas distended loops of small bowel are again noted. NG tube shows a kinked appearance as on prior. Nini ng bases show stable appearance. No evident pneumoperitoneum. IMPRESSION: Findings consistent with patient's history small bowel obstruction.
[2020-07-22 10:12] LABS: African American GFR (CKD) 107.8 (60.0-200.0); Albumin 3.1 g/dL (3.80-4.90); Albumin/Globulin Ratio 2.38 (1.60-3.17); Anion Gap 8.4 mmol/L (4.00-12.00); Calcium 7.9 mg/dL (8.7-10.3); Carbon Dioxide 25.6 mmol/L (21.6-31.8); Globulin 1.3 g/dL (1.6-3.3); Magnesium 1.5 mg/dL (1.5-2.4); Potassium 3.1 mmol/L (3.5-5.5); Total Bilirubin 0.6 mg/dL (0.2-1.2); Total Protein 4.4 g/dL (6.2-8.2)
[2020-07-22] MEDS: DEXTROSE 5%-0.9% NACL 1,000 ML IV SCH (10:22)
[2020-07-22] MEDS ORDERED: LACTATED RINGERS 1,000 ML IV ONE (10:34)
--- NOTE | 2020-07-22 10:40 | P.PN ---
Progress Note - Text Progress Note Date: 07/22/20 Patient reevaluated this morning. She did have a small hard bowel movement. No flatus. Repeat x-ray showed persistent small bowel obstruction. That was discussed with the patient in detail. She is agreeable to proceed with exploratory laparotomy at this time.
[2020-07-22 10:42] LABS: Glucose,Whole Blood 108 mg/dL (75-99)
[2020-07-22] MEDS ORDERED: HEPARIN SODIUM,PORCINE 5,000 UNIT/ML 1 ML VIAL ONE ×2 (10:44→11:08)
[2020-07-22] MEDS ORDERED: MIDAZOLAM 2 MG/2 ML VIAL IVP ONE (10:49)
[2020-07-22] MEDS: DEXTROSE 5%-0.45% NACL 1,000 ML IV SCH (11:04)
[2020-07-22] MEDS ORDERED: NEOSTIGMINE 1 MG/ML 10 ML VIAL ONE (11:08)
[2020-07-22] MEDS ORDERED: GLYCOPYRROLATE 0.2 MG/ML 2 ML VIAL ONE (11:08)
[2020-07-22] MEDS ORDERED: PROPOFOL 10 MG/ML 20 ML VIAL IV ONE (11:08)
[2020-07-22] MEDS ORDERED: ePHEDrine SULFATE/0.9% NACL/PF 50 MG/5 ML SYRINGE IV ONE (11:08)
[2020-07-22] MEDS ORDERED: ROCURONIUM 10 MG/ML (5 ML VIAL) IV ONE (11:08)
[2020-07-22] MEDS ORDERED: fentaNYL (PF) 50 MCG/ML 2 ML AMP ONE (11:08)
[2020-07-22] MEDS ORDERED: SUCCINYLCHOLINE CHLORIDE 100 MG/5 ML SYR IV ONE (11:08)
[2020-07-22] MEDS ORDERED: SODIUM CHLORIDE 0.9% 100 ML with ceFAZolin 1,000 MG IV ONE ×2 (11:42)
[2020-07-22] MEDS ORDERED: NALOXONE 0.4 MG/ML 1 ML VIAL IV PRN (11:43)
--- NOTE | 2020-07-22 11:46 | P.ANPRN ---
Procedure Note - Anesthesia - Epidural/Spinal Epidural Time Out Performed: Yes Date of Procedure: 07/22/20 Procedure Start Time: 10:50 Procedure Stop Time: 11:02 Location of Patient: PreOp Indication: Acute Post-Operative Pain Sedation Type: Sedate with meaningful contact maintained Preparation: Sterile Dressing Position: Sitting Catheter: Indwelling Needle Guage: 18 Injectate: Test Dose Lidocaine1.5% w/1:200,000 epi (negative test dose) Blood Aspirated: No Pain Paresthesia on Injection Noted: No Events: Uneventful and Well Tolerated
--- NOTE | 2020-07-22 12:13 | P.OP ---
Date of Procedure: 07/22/20 Procedure(s) Performed: PREOPERATIVE DIAGNOSIS: Small bowel obstruction POSTOPERATIVE DIAGNOSIS: Small bowel obstruction secondary to intra-abdominal adhesions PROCEDURE: Exploratory laparotomy with lysis of adhesions SURGEON: Albert EBL: 10 mL ANESTHESIA: Gen. COMPLICATIONS: None OPERATIVE PROCEDURE: Patient placed in the operating table in the supine position. Patient was placed under general anesthesia. Midline incision was then created after prepping the abdomen sterilely. Dissection through the s ubcutaneous fat and fascia took place using electrocautery. The patient had serosanguineous fluid within the abdomen that was evacuated. The small bowel was inspected. The proximal small bowel was distended and the distal small bowel was collapsed. As we followed the small bowel from proximal to distal an adhesive band was identified causing an internal hernia. The bowel present in the internal hernia was viable after lysing the adhesive band. No further obstructions were seen. The colon had large amount of hard stool present. Following that the midline fascia was reapproximated using double-stranded #1 PDS sutures. Skin closed using yrn. Sterile dressings applied. DISPOSITION: Stable to recovery room
[2020-07-22] MEDS: ROPIVACAINE 250 MG, HYDROMORPHONE (PF) 5 MG in SODIUM CHLORIDE 0.9% 200 ML EPIDURAL PRN ×2 (12:21→13:10)
[2020-07-22] MEDS ORDERED: ACETAMINOPHEN IV (For NPO) 1,000 MG in EMPTY BAG 1 BAG IVPB ONE (12:30)
[2020-07-22 12:42] LABS: Glucose,Whole Blood 134 mg/dL (75-99)
[2020-07-22] MEDS: ONDANSETRON 4 MG/2 ML VIAL IVP PRN (14:39)
[2020-07-22 17:03] LABS: Glucose,Whole Blood 163 mg/dL (75-99)
[2020-07-22] MEDS: POTASSIUM CHLORIDE 10 MEQ in WATER FOR INJECTION 1 100ML.BAG IVPB SCH ×4 (17:36→20:51)
[2020-07-22 20:19] LABS: Glucose,Whole Blood 226 mg/dL (75-99)
[2020-07-22] MEDS: EZETIMIBE 10 MG TAB PO SCH (21:59)
[2020-07-23] MEDS: DEXTROSE 5%-0.45% NACL 1,000 ML IV SCH ×2 (04:26→15:34)
--- NOTE | 2020-07-23 06:46 | P.PN ---
Progress Note - Text Progress Note Date: 07/23/20 post op day 1 patient has a lumbar epidural catheter infusing at 4 ml/hr patient is very comfortable in bed, rating her pain 2-3 /10. she denies any muscle weakness or excessive numbness she denies any local anesthetic toxicity symptoms she denies any back pain or headache the epidural catheter insertion site is clean with no bleeding or discharge will keep the epidural catheter in place for the enxt 2-3 days will follow
[2020-07-23 06:50] LABS: Glucose,Whole Blood 200 mg/dL (75-99)
--- NOTE | 2020-07-23 11:01 | P.PN ---
<Allyson Liz - Last Filed: 07/23/20 10:52> Subjective Progress Note Date: 07/23/20 CHIEF COMPLAINT: Abdominal pain HISTORY OF PRESENT ILLNESS: Patient is postop day #1 status post exploratory laparotomy with lysis of adhesions for small bowel obstruction secondary to intra-abdominal adhesions. Patient has epidural. She reports no pain. She did have some dry heaves last night this has now resolved. She has not passed any gas. She is afebrile. Nothing by mouth except for ice chips and popsicles. She is afebrile. Potassium 3.9 Patient has NG tube with no output through the night. PHYSICAL EXAM: VITAL SIGNS: Reviewed. GENERAL: Well-developed in no acute distress. HEENT: No sclera icterus. Extraocular movements grossly intact. Moist buccal mucosa. Head is atraumatic, normocephalic. ABDOMEN: Soft. Distended. Dressing clean dry and intact. Abdominal binder in place. NEUROLOGIC: Alert and oriented. Cranial nerves II through XII grossly intact. ASSESSMENT: 1. Small bowel obstruction secondary to intra-abdominal adhesions status post exploratory laparotomy with lysis of adhesions. Postop day #1 2. Family history significant for mother with colon cancer 3. History of diabetes mellitus type 2 4. Chronic constipation 5. History of appendectomy 6. Hypokalemia resolved PLAN: -Keep patient nothing by mouth -Dulcolax daily -Epidural for pain control -Continue abdominal binder -Add incentive spirometer -GI prophylaxis Protonix and DVT prophylaxis Lovenox Physician Director Of [employer]es [employer] note has been reviewed by physician. Signing provider agrees with the documented findings, assessment, and plan of care. Objective - Vital Signs Vital signs: Vital Signs Temp 97.8 F 07/23/20 05:00 Pulse 73 07/23/20 05:00 Resp 16 07/23/20 05:00 BP 111/56 07/23/20 05:00 Pulse Ox 97 07/23/20 05:00 Intake & Output 07/22/20 07/23/20 07/23/20 18:59 06:59 18:59 Intake Total 1404 Output Total 251 500 Balance 1153 -500 Intake: IV 1004 Intake, IV Titration 400 Amount Dextrose 5%-0.9% NaCl 1, 400 000 ml @ 75 mls/hr IV . [id number] [facility] Rx#:[id number] Output: Gastric Drainage 200 0 Urine 25 500 Uretheral (Adam) 500 Stool 1 Estimated Blood Loss 25 Other: Voiding Method Indwelling Catheter Indwelling Catheter # Voids 1 - Labs CBC & Chem 7: 07/22/20 04:40 07/22/20 23:39 Labs: Abnormal Lab Results - Last 24 Hours (Table) 07/22/20 07/22/20 07/22/20 Range/Units 12:39 15:19 17:01 Potassium 3.1 L (3.5-5.1) mmol/L POC Glucose (mg/dL) 134 H 163 H (75-99) mg/dL 07/22/20 07/23/20 Range/Units 20:17 06:46 Potassium (3.5-5.1) mmol/L POC Glucose (mg/dL) 226 H 200 H (75-99) mg/dL <Jose Manuel Price - Last Filed: 07/23/20 19:27> Subjective As above. Denies pain. NG tube still in place. Keep Adam and epidural catheter. Await return of bowel function. Objective - Vital Signs Vital signs: Vital Signs Temp 97.6 F 07/23/20 11:22 Pulse 71 07/23/20 11:22 Resp 18 07/23/20 15:50 BP 114/62 07/23/20 11:22 Pulse Ox 97 07/23/20 11:22 Intake & Output 07/23/20 07/23/20 07/24/20 06:59 18:59 06:59 Intake Total 800 Output Total 500 1 Balance -500 799 Weight 51.256 kg Intake: Intake, IV Titration 800 Amount Sodium Chloride 0.9% 100 800 ml @ 0 mls/hr IV .STK-MED ONE with ceFAZolin 1,000 mg Rx#:[id number] Output: Gastric Drainage 0 Urine 500 Uretheral (Adam) 500 Stool 1 Other: Voiding Method Indwelling Catheter Indwelling Catheter # Voids 1 - Labs CBC & Chem 7: 07/22/20 04:40 07/22/20 23:39 Labs: Abnormal Lab Results - Last 24 Hours (Table) 07/22/20 07/23/20 07/23/20 Range/Units 20:17 06:46 11:27 POC Glucose (mg/dL) 226 H 200 H 198 H (75-99) mg/dL 07/23/20 Range/Units 17:35 POC Glucose (mg/dL) 176 H (75-99) mg/dL
[2020-07-23] MEDS: ONDANSETRON 4 MG/2 ML VIAL IVP PRN ×2 (11:17→18:29)
[2020-07-23] MEDS: bisacodyL 10 MG SUPP RECTAL SCH (11:17)
[2020-07-23] MEDS: PANTOPRAZOLE 40 MG/10 ML VIAL IVP SCH (11:17)
[2020-07-23] MEDS: ENOXAPARIN 40 MG/0.4 ML SYRINGE SQ SCH (11:17)
[2020-07-23] MEDS: INSULIN ASPART (NovoLOG) 100 UNIT/ML VIAL SQ SCH ×4 (11:17→19:33)
[2020-07-23 11:28] LABS: Glucose,Whole Blood 198 mg/dL (75-99)
[2020-07-23] MEDS ORDERED: MVI, ADULT NO.4 WITH VIT K 10 ML, TRACE (CONC-1ML/DOSE) 1 ML in AMINO ACID 4.25%-D10W+L... IV ONE ×3 (17:00)
[2020-07-23 17:37] LABS: Glucose,Whole Blood 176 mg/dL (75-99)
[2020-07-23] MEDS: FAT EMULSION 20% 250 ML IV SCH (17:41)
--- NOTE | 2020-07-23 20:19 | P.PN ---
Subjective From records: Patient is admitted for a partial small bowel obstruction patient is passing gas does have a sluggish bowel sounds patient did have NG tube output of around 200 mL total of 800 mL since yesterday. 07/20/2020 patient had output of around 1 50 mL from the NG tube did have bowel movements and does have bowel sounds. Repeat abdominal x-ray still showing bowel obstruction. Patient blood sugars are bit low patient will be switched to D5 normal saline at 75 mL per hour. 07/21/2020 Since the imaging didn't show any significant improvement in bowel obstruction and patient has a NG tube output of 1100 last night patient will undergo laparotomy tomorrow. 07/22/2020 Patient is still having NG tube output of 202 abdominal x-ray still shows significant bowel obstruction all the abdomen is soft and does have bowel sounds. Patient probably will need laparotomy but patient the still thinking about whether to go for surgery or not Subjective 07/23/2020, today is taking care of the patient Patient is status post laparotomy with lysis of adhesion. Today is postop day #1. She still nothing by mouth, abdominal pain is controlled, NG tube is in place with more than 500 mL of dark fluid is aspirated. No bowel movement or gases. Surgery team R following the case closely and they start patient on Dulcolax rectally today. Objective - Vital Signs Vital signs: Vital Signs Temp 97.6 F 07/23/20 11:22 Pulse 71 07/23/20 11:22 Resp 18 07/23/20 15:50 BP 114/62 07/23/20 11:22 Pulse Ox 97 07/23/20 11:22 Intake & Output 07/22/20 07/23/20 07/23/20 18:59 06:59 18:59 Intake Total 1404 Output Total 251 500 Balance 1153 -500 Weight 51.256 kg Intake: IV 1004 Intake, IV Titration 400 Amount Dextrose 5%-0.9% NaCl 1, 400 000 ml @ 75 mls/hr IV . [id number] [facility] Rx#:[id number] Output: Gastric Drainage 200 0 Urine 25 500 Uretheral (Adam) 500 Stool 1 Estimated Blood Loss 25 Other: Voiding Method Indwelling Catheter Indwelling Catheter Indwelling Catheter # Voids 1 - Exam GENERAL: The patient is alert and oriented x3, not in any acute distress. Well developed, well nourished. HEENT: Pupils are round and equally reacting to light. EOMI. No scleral icterus. No conjunctival pallor. Normocephalic, atraumatic. No pharyngeal erythema. No thyromegaly. CARDIOVASCULAR: S1 and S2 present. No murmurs, rubs, or gallops. PULMONARY: Chest is clear to auscultation, no wheezing or crackles. -ABDOMEN: Soft, nontender, nondistended, normoactive bowel sounds. No palpable organomegaly. Abdominal incision is dry and clean MUSCULOSKELETAL: No joint swelling or deformity. EXTREMITIES: No cyanosis, clubbing, or pedal edema. NEUROLOGICAL: Gross neurological examination did not reveal any focal deficits. SKIN: No rashes. no petechiae. - Labs CBC & Chem 7: 07/22/20 04:40 07/22/20 23:39 Labs: Abnormal Lab Results - Last 24 Hours (Table) 07/22/20 07/22/20 07/23/20 Range/Units 17:01 20:17 06:46 POC Glucose (mg/dL) 163 H 226 H 200 H (75-99) mg/dL 07/23/20 Range/Units 11:27 POC Glucose (mg/dL) 198 H (75-99) mg/dL Assessment and Plan Assessment: -Ileus/mechanical small bowel obstruction: Status post exploratory laparotomy and lysis of adhesions. Advance diet when patient is ready for surgery team. -Small bilateral pleural effusions patient doesn't have any hypoxemia at this time patient will need IV fluids which were continued for now -Type 2 diabetes mellitus, blood sugars are actually low patient will be continued on D5 half-normal saline -Hyperlipidemia -DVT prophylaxis Lovenox
[2020-07-23] MEDS: EZETIMIBE 10 MG TAB PO SCH (21:20)
[2020-07-24 00:41] LABS: Glucose,Whole Blood 218 mg/dL (75-99)
[2020-07-24] MEDS: INSULIN ASPART (NovoLOG) 100 UNIT/ML VIAL SQ SCH ×4 (00:49→18:43)
[2020-07-24] MEDS: DEXTROSE 5%-0.45% NACL 1,000 ML IV SCH ×2 (00:49→19:39)
[2020-07-24 06:24] LABS: Basophils % (A) 0 %; Eosinophils # (A) 0.1 k/uL (0-0.7); Eosinophils % (A) 2 %; HCT 29.5 % (34.0-46.0); HGB 9.5 gm/dL (11.4-16.0); Lymphocytes # (A) 0.6 k/uL (1.0-4.8); Lymphocytes % (A) 17 %; MCHC 32.2 g/dL (31.0-37.0); MCV 99.4 fL (80.0-100.0); Mean Platelet Volume 7.9; Monocytes # (A) 0.2 k/uL (0-1.0); Monocytes % (A) 5 %; Neutrophils # (A) 2.5 k/uL (1.3-7.7); Neutrophils % (A) 74 %; Platelet Count 139 k/uL (150-450); RBC 2.97 m/uL (3.80-5.40); RDW 14.1 % (11.5-15.5); WBC 3.4 k/uL (3.8-10.6)
[2020-07-24 06:26] LABS: Ionized Calcium 4.9 mg/dL (4.5-5.3)
[2020-07-24 06:26] LABS: Glucose,Whole Blood 242 mg/dL (75-99)
[2020-07-24 07:06] LABS: Glucose,Whole Blood 232 mg/dL (75-99)
--- NOTE | 2020-07-24 07:44 | P.PN ---
Progress Note - Text Progress Note Date: 07/24/20 Patient is POD#2 s/p exploratory laparotomy. Pain 0/10. Denies headache or weakness. Epidural @ 4 ml/hr. Epidural site clean and dry. Continue current regimen.
[2020-07-24 09:22] LABS: African American GFR (CKD) 99.5 (60.0-200.0); Albumin 2.9 g/dL (3.80-4.90); Albumin/Globulin Ratio 2.23 (1.60-3.17); Anion Gap 4.7 mmol/L (4.00-12.00); Calcium 7.8 mg/dL (8.7-10.3); Carbon Dioxide 29.3 mmol/L (21.6-31.8); Globulin 1.3 g/dL (1.6-3.3); Magnesium 1.4 mg/dL (1.5-2.4); Non-African American GFR(CKD) 85.8 (60.0-200.0); Phosphorus 2.7 mg/dL (2.4-5.1); Potassium 3.7 mmol/L (3.5-5.5); Total Bilirubin 0.4 mg/dL (0.2-1.2); Total Protein 4.2 g/dL (6.2-8.2)
[2020-07-24] MEDS: PANTOPRAZOLE 40 MG/10 ML VIAL IVP SCH (09:35)
[2020-07-24] MEDS: bisacodyL 10 MG SUPP RECTAL SCH (09:35)
[2020-07-24] MEDS: ENOXAPARIN 40 MG/0.4 ML SYRINGE SQ SCH (09:35)
[2020-07-24] MEDS: ROPIVACAINE 250 MG, HYDROMORPHONE (PF) 5 MG in SODIUM CHLORIDE 0.9% 200 ML EPIDURAL PRN (10:32)
[2020-07-24] MEDS: 1: MVI, ADULT NO.4 WITH VIT K 10 ML, TRACE (CONC-1ML/DOSE) 1 ML in AMINO ACID 4.25%-D10W IV SCH ×6 (11:16→23:30)
[2020-07-24] MEDS: MAGNESIUM SULFATE-D5W PMX 1 GM in DEXTROSE/WATER 1 100ML.BAG IVPB SCH ×3 (11:16→14:24)
[2020-07-24 11:28] LABS: Glucose,Whole Blood 228 mg/dL (75-99)
--- NOTE | 2020-07-24 12:08 | P.PN ---
<Allyson Liz - Last Filed: 07/24/20 12:02> Subjective Progress Note Date: 07/24/20 CHIEF COMPLAINT: Abdominal pain HISTORY OF PRESENT ILLNESS: Patient is postop day #2 status post exploratory laparotomy with lysis of adhesions for small bowel obstruction secondary to intra-abdominal adhesions. Patient has epidural and Adam catheter. Patient started on PPN. She reports no pain. She did report some nausea that has improved with medication. She has not passed gas or had BM. Nothing by mouth except for ice chips and popsicles. NG tube 100 mL bilious output through the night. She is afebrile. WBC 3.4 hemoglobin 9.5 potassium 3.7 magnesium 1.4 PHYSICAL EXAM: VITAL SIGNS: Reviewed. GENERAL: Well-developed in no acute distress. HEENT: No sclera icterus. Extraocular movements grossly intact. Moist buccal mucosa. Head is atraumatic, normocephalic. ABDOMEN: Soft. Distended. Dressing clean dry and intact. Abdominal binder in place. NEUROLOGIC: Alert and oriented. Cranial nerves II through XII grossly intact. ASSESSMENT: 1. Small bowel obstruction secondary to intra-abdominal adhesions status post exploratory laparotomy with lysis of adhesions. Postop day #1 2. Family history significant for mother with colon cancer 3. History of diabetes mellitus type 2 4. Chronic constipation 5. History of appendectomy 6. Hypokalemia resolved 7. Hypomagnesemia PLAN: -Continue PPN for nutrition support -Replace magnesium -Keep patient nothing by mouth -Dulcolax daily -Epidural for pain control -Continue abdominal binder -Encouraged incentive spirometer use -GI prophylaxis Protonix and DVT prophylaxis Lovenox Physician Workers Compensation Claims Analyst note has been reviewed by physician. Signing provider agrees with the documented findings, assessment, and plan of care. Objective - Vital Signs Vital signs: Vital Signs Temp 98.2 F 07/24/20 11:13 Pulse 73 07/24/20 11:13 Resp 16 07/24/20 11:13 BP 113/56 07/24/20 11:13 Pulse Ox 100 07/24/20 11:13 Intake & Output 07/23/20 07/24/20 07/24/20 18:59 06:59 18:59 Intake Total 800 2088.333 Output Total 1 550 Balance 799 1538.333 Weight 51.256 kg Intake: Intake, IV Titration 800 2088.333 Amount Dextrose 5%-0.45% NaCl 1, 725 000 ml @ 75 mls/hr IV . [id number] [facility] Rx#:[id number] Fat Emulsion 20% 250 ml @ 180 20.833 mls/hr IV MoWeFr@ 1700 [facility] Rx#:[id number] Mvi, Adult No.4 with Vit 1183.333 K 10 ml Trace (Conc-1Ml/ Dose) 1 ml In Amino Acid 4.25%-D10w+Lytes*E* 1,000 ml @ 50 mls/hr IV . [id number] [facility] Rx#:[id number] Sodium Chloride 0.9% 100 800 ml @ 0 mls/hr IV .STK-MED ONE with ceFAZolin 1,000 mg Rx#:[id number] Oral 0 Output: Gastric Drainage 100 Urine 450 Stool 1 Other: Voiding Method Indwelling Catheter Indwelling Catheter Indwelling Catheter - Labs CBC & Chem 7: 07/24/20 05:37 07/24/20 05:37 Labs: Abnormal Lab Results - Last 24 Hours (Table) 07/23/20 07/24/20 07/24/20 Range/Units 17:35 00:38 05:37 WBC 3.4 L (3.8-10.6) k/uL RBC 2.97 L (3.80-5.40) m/uL Hgb 9.5 L (11.4-16.0) gm/dL Hct 29.5 L (34.0-46.0) % Plt Count 139 L (150-450) k/uL Lymphocytes # 0.6 L (1.0-4.8) k/uL Creatinine (0.6-1.5) mg/dL Glucose (70-110) mg/dL POC Glucose (mg/dL) 176 H 218 H (75-99) mg/dL Calcium (8.7-10.3) mg/dL Magnesium (1.5-2.4) mg/dL Alkaline Phosphatase (41-126) U/L Total Protein (6.2-8.2) g/dL Albumin (3.80-4.90) g/dL Globulin (1.6-3.3) g/dL 07/24/20 07/24/20 07/24/20 Range/Units 05:37 06:24 07:03 WBC (3.8-10.6) k/uL RBC (3.80-5.40) m/uL Hgb (11.4-16.0) gm/dL Hct (34.0-46.0) % Plt Count (150-450) k/uL Lymphocytes # (1.0-4.8) k/uL Creatinine 0.5 L (0.6-1.5) mg/dL Glucose 224 H (70-110) mg/dL POC Glucose (mg/dL) 242 H 232 H (75-99) mg/dL Calcium 7.8 L (8.7-10.3) mg/dL Magnesium 1.4 L (1.5-2.4) mg/dL Alkaline Phosphatase 38 L (41-126) U/L Total Protein 4.2 L (6.2-8.2) g/dL Albumin 2.90 L (3.80-4.90) g/dL Globulin 1.3 L (1.6-3.3) g/dL 07/24/20 Range/Units 11:18 WBC (3.8-10.6) k/uL RBC (3.80-5.40) m/uL Hgb (11.4-16.0) gm/dL Hct (34.0-46.0) % Plt Count (150-450) k/uL Lymphocytes # (1.0-4.8) k/uL Creatinine (0.6-1.5) mg/dL Glucose (70-110) mg/dL POC Glucose (mg/dL) 228 H (75-99) mg/dL Calcium (8.7-10.3) mg/dL Magnesium (1.5-2.4) mg/dL Alkaline Phosphatase (41-126) U/L Total Protein (6.2-8.2) g/dL Albumin (3.80-4.90) g/dL Globulin (1.6-3.3) g/dL <Jose Manuel Price - Last Filed: 07/24/20 16:00> Subjective As above. Patient doing well. NG output decreasing. No flatus or bowel movement. Plan epidural and Adam catheter removal tomorrow. Possible NG tube removal as well tomorrow. Continue PPN for now. Objective - Vital Signs Vital signs: Vital Signs Temp 98.2 F 07/24/20 11:13 Pulse 73 07/24/20 11:13 Resp 16 07/24/20 11:13 BP 113/56 07/24/20 11:13 Pulse Ox 100 07/24/20 11:13 Intake & Output 07/23/20 07/24/20 07/24/20 18:59 06:59 18:59 Intake Total 800 2088.333 932 Output Total 1 550 Balance 799 1538.333 932 Weight 51.256 kg Intake: Intake, IV Titration 800 2088.333 932 Amount Amino Acid 4.25%-D10w+ 600 Lytes*E* 1,000 ml @ 75 mls/hr IV .BY DURATION [facility] Rx#:[id number] Dextrose 5%-0.45% NaCl 1, 725 000 ml @ 75 mls/hr IV . [id number] [facility] Rx#:[id number] Fat Emulsion 20% 250 ml @ 180 20.833 mls/hr IV MoWeFr@ 1700 [facility] Rx#:[id number] Magnesium Sulfate-D5w Pmx 300 1 gm In Dextrose/Water 1 100ml.bag @ 100 mls/hr IVPB Q1H [facility] Rx#: [id number] Mvi, Adult No.4 with Vit 1183.333 K 10 ml Trace (Conc-1Ml/ Dose) 1 ml In Amino Acid 4.25%-D10w+Lytes*E* 1,000 ml @ 50 mls/hr IV . [id number] [facility] Rx#:[id number] Ropivacaine 250 mg 32 Hydromorphone (Pf) 5 mg In Sodium Chloride 0.9% 200 ml @ Per Protocol EPIDURAL .Q0M PRN Rx#: [id number] Sodium Chloride 0.9% 100 800 ml @ 0 mls/hr IV .STK-MED ONE with ceFAZolin 1,000 mg Rx#:[id number] Oral 0 Output: Gastric Drainage 100 Urine 450 Stool 1 Other: Voiding Method Indwelling Catheter Indwelling Catheter Indwelling Catheter - Labs CBC & Chem 7: 07/24/20 05:37 07/24/20 05:37 Labs: Abnormal Lab Results - Last 24 Hours (Table) 07/23/20 07/24/20 07/24/20 Range/Units 17:35 00:38 05:37 WBC 3.4 L (3.8-10.6) k/uL RBC 2.97 L (3.80-5.40) m/uL Hgb 9.5 L (11.4-16.0) gm/dL Hct 29.5 L (34.0-46.0) % Plt Count 139 L (150-450) k/uL Lymphocytes # 0.6 L (1.0-4.8) k/uL Creatinine (0.6-1.5) mg/dL Glucose (70-110) mg/dL POC Glucose (mg/dL) 176 H 218 H (75-99) mg/dL Calcium (8.7-10.3) mg/dL Magnesium (1.5-2.4) mg/dL Alkaline Phosphatase (41-126) U/L Total Protein (6.2-8.2) g/dL Albumin (3.80-4.90) g/dL Globulin (1.6-3.3) g/dL 07/24/20 07/24/20 07/24/20 Range/Units 05:37 06:24 07:03 WBC (3.8-10.6) k/uL RBC (3.80-5.40) m/uL Hgb (11.4-16.0) gm/dL Hct (34.0-46.0) % Plt Count (150-450) k/uL Lymphocytes # (1.0-4.8) k/uL Creatinine 0.5 L (0.6-1.5) mg/dL Glucose 224 H (70-110) mg/dL POC Glucose (mg/dL) 242 H 232 H (75-99) mg/dL Calcium 7.8 L (8.7-10.3) mg/dL Magnesium 1.4 L (1.5-2.4) mg/dL Alkaline Phosphatase 38 L (41-126) U/L Total Protein 4.2 L (6.2-8.2) g/dL Albumin 2.90 L (3.80-4.90) g/dL Globulin 1.3 L (1.6-3.3) g/dL 07/24/20 Range/Units 11:18 WBC (3.8-10.6) k/uL RBC (3.80-5.40) m/uL Hgb (11.4-16.0) gm/dL Hct (34.0-46.0) % Plt Count (150-450) k/uL Lymphocytes # (1.0-4.8) k/uL Creatinine (0.6-1.5) mg/dL Glucose (70-110) mg/dL POC Glucose (mg/dL) 228 H (75-99) mg/dL Calcium (8.7-10.3) mg/dL Magnesium (1.5-2.4) mg/dL Alkaline Phosphatase (41-126) U/L Total Protein (6.2-8.2) g/dL Albumin (3.80-4.90) g/dL Globulin (1.6-3.3) g/dL
[2020-07-24 17:05] LABS: Glucose,Whole Blood 217 mg/dL (75-99)
--- NOTE | 2020-07-24 21:06 | P.PN ---
Subjective From records: Patient is admitted for a partial small bowel obstruction patient is passing gas does have a sluggish bowel sounds patient did have NG tube output of around 200 mL total of 800 mL since yesterday. 07/20/2020 patient had output of around 1 50 mL from the NG tube did have bowel movements and does have bowel sounds. Repeat abdominal x-ray still showing bowel obstruction. Patient blood sugars are bit low patient will be switched to D5 normal saline at 75 mL per hour. 07/21/2020 Since the imaging didn't show any significant improvement in bowel obstruction and patient has a NG tube output of 1100 last night patient will undergo laparotomy tomorrow. 07/22/2020 Patient is still having NG tube output of 202 abdominal x-ray still shows significant bowel obstruction all the abdomen is soft and does have bowel sounds. Patient probably will need laparotomy but patient the still thinking about whether to go for surgery or not Subjective 07/23/2020, today is taking care of the patient Patient is status post laparotomy with lysis of adhesion. Today is postop day #1. She still nothing by mouth, abdominal pain is controlled, NG tube is in place with more than 500 mL of dark fluid is aspirated. No bowel movement or gases. Surgery team R following the case closely and they start patient on Dulcolax rectally today. 07/24/20 Patient is sitting in chair comfortable, her abdominal pain is controlled, she still nothing by mouth, no nausea vomiting. Yesterday back in this place. Patient remains an epidural catheter and TPN. She still D5 half-normal saline at 75 mL/h CA-125 antigen and CEA are negative We'll keep close monitoring Objective - Vital Signs Vital signs: Vital Signs Temp 98.2 F 07/24/20 11:13 Pulse 73 07/24/20 11:13 Resp 16 07/24/20 11:13 BP 113/56 07/24/20 11:13 Pulse Ox 100 07/24/20 11:13 Intake & Output 07/23/20 07/24/20 07/24/20 18:59 06:59 18:59 Intake Total 800 2088.333 932 Output Total 1 550 Balance 799 1538.333 932 Weight 51.256 kg Intake: Intake, IV Titration 800 2088.333 932 Amount Amino Acid 4.25%-D10w+ 600 Lytes*E* 1,000 ml @ 75 mls/hr IV .BY DURATION [facility] Rx#:[id number] Dextrose 5%-0.45% NaCl 1, 725 000 ml @ 75 mls/hr IV . [id number] [facility] Rx#:[id number] Fat Emulsion 20% 250 ml @ 180 20.833 mls/hr IV MoWeFr@ 1700 [facility] Rx#:[id number] Magnesium Sulfate-D5w Pmx 300 1 gm In Dextrose/Water 1 100ml.bag @ 100 mls/hr IVPB Q1H [facility] Rx#: [id number] Mvi, Adult No.4 with Vit 1183.333 K 10 ml Trace (Conc-1Ml/ Dose) 1 ml In Amino Acid 4.25%-D10w+Lytes*E* 1,000 ml @ 50 mls/hr IV . [id number] [facility] Rx#:[id number] Ropivacaine 250 mg 32 Hydromorphone (Pf) 5 mg In Sodium Chloride 0.9% 200 ml @ Per Protocol EPIDURAL .Q0M PRN Rx#: [id number] Sodium Chloride 0.9% 100 800 ml @ 0 mls/hr IV .STK-MED ONE with ceFAZolin 1,000 mg Rx#:[id number] Oral 0 Output: Gastric Drainage 100 Urine 450 Stool 1 Other: Voiding Method Indwelling Catheter Indwelling Catheter Indwelling Catheter - Exam GENERAL: The patient is alert and oriented x3, not in any acute distress. Well developed, well nourished. HEENT: Pupils are round and equally reacting to light. EOMI. No scleral icterus. No conjunctival pallor. Normocephalic, atraumatic. No pharyngeal erythema. No thyromegaly. CARDIOVASCULAR: S1 and S2 present. No murmurs, rubs, or gallops. PULMONARY: Chest is clear to auscultation, no wheezing or crackles. -ABDOMEN: Soft, nontender, nondistended, normoactive bowel sounds. No palpable organomegaly. Abdominal incision is dry and clean MUSCULOSKELETAL: No joint swelling or deformity. EXTREMITIES: No cyanosis, clubbing, or pedal edema. NEUROLOGICAL: Gross neurological examination did not reveal any focal deficits. SKIN: No rashes. no petechiae. - Labs CBC & Chem 7: 07/24/20 05:37 07/24/20 05:37 Labs: Abnormal Lab Results - Last 24 Hours (Table) 07/23/20 07/24/20 07/24/20 Range/Units 17:35 00:38 05:37 WBC 3.4 L (3.8-10.6) k/uL RBC 2.97 L (3.80-5.40) m/uL Hgb 9.5 L (11.4-16.0) gm/dL Hct 29.5 L (34.0-46.0) % Plt Count 139 L (150-450) k/uL Lymphocytes # 0.6 L (1.0-4.8) k/uL Creatinine (0.6-1.5) mg/dL Glucose (70-110) mg/dL POC Glucose (mg/dL) 176 H 218 H (75-99) mg/dL Calcium (8.7-10.3) mg/dL Magnesium (1.5-2.4) mg/dL Alkaline Phosphatase (41-126) U/L Total Protein (6.2-8.2) g/dL Albumin (3.80-4.90) g/dL Globulin (1.6-3.3) g/dL 07/24/20 07/24/20 07/24/20 Range/Units 05:37 06:24 07:03 WBC (3.8-10.6) k/uL RBC (3.80-5.40) m/uL Hgb (11.4-16.0) gm/dL Hct (34.0-46.0) % Plt Count (150-450) k/uL Lymphocytes # (1.0-4.8) k/uL Creatinine 0.5 L (0.6-1.5) mg/dL Glucose 224 H (70-110) mg/dL POC Glucose (mg/dL) 242 H 232 H (75-99) mg/dL Calcium 7.8 L (8.7-10.3) mg/dL Magnesium 1.4 L (1.5-2.4) mg/dL Alkaline Phosphatase 38 L (41-126) U/L Total Protein 4.2 L (6.2-8.2) g/dL Albumin 2.90 L (3.80-4.90) g/dL Globulin 1.3 L (1.6-3.3) g/dL 07/24/20 07/24/20 Range/Units 11:18 17:01 WBC (3.8-10.6) k/uL RBC (3.80-5.40) m/uL Hgb (11.4-16.0) gm/dL Hct (34.0-46.0) % Plt Count (150-450) k/uL Lymphocytes # (1.0-4.8) k/uL Creatinine (0.6-1.5) mg/dL Glucose (70-110) mg/dL POC Glucose (mg/dL) 228 H 217 H (75-99) mg/dL Calcium (8.7-10.3) mg/dL Magnesium (1.5-2.4) mg/dL Alkaline Phosphatase (41-126) U/L Total Protein (6.2-8.2) g/dL Albumin (3.80-4.90) g/dL Globulin (1.6-3.3) g/dL Assessment and Plan Assessment: -Ileus/mechanical small bowel obstruction: Status post exploratory laparotomy and lysis of adhesions. Advance diet when patient is ready for surgery team. -Small bilateral pleural effusions patient doesn't have any hypoxemia at this time patient will need IV fluids which were continued for now -Type 2 diabetes mellitus, blood sugars are actually low patient will be continued on D5 half-normal saline -Hyperlipidemia -DVT prophylaxis Lovenox
[2020-07-24] MEDS: EZETIMIBE 10 MG TAB PO SCH (23:01)
[2020-07-25 00:56] LABS: Glucose,Whole Blood 220 mg/dL (75-99)
[2020-07-25] MEDS: INSULIN ASPART (NovoLOG) 100 UNIT/ML VIAL SQ SCH ×4 (01:14→19:02)
[2020-07-25] MEDS: DEXTROSE 5%-0.45% NACL 1,000 ML IV SCH ×2 (05:57→09:43)
[2020-07-25 06:23] LABS: Glucose,Whole Blood 191 mg/dL (75-99)
[2020-07-25 06:32] LABS: Basophils % (A) 0 %; Eosinophils # (A) 0.1 k/uL (0-0.7); Eosinophils % (A) 3 %; HCT 27.7 % (34.0-46.0); HGB 9.1 gm/dL (11.4-16.0); Lymphocytes # (A) 0.6 k/uL (1.0-4.8); Lymphocytes % (A) 21 %; MCH 32.3 pg (25.0-35.0); MCV 97.8 fL (80.0-100.0); Mean Platelet Volume 7.9; Monocytes # (A) 0.1 k/uL (0-1.0); Monocytes % (A) 5 %; Neutrophils % (A) 70 %; Platelet Count 135 k/uL (150-450); RBC 2.83 m/uL (3.80-5.40); RDW 14.1 % (11.5-15.5); WBC 2.8 k/uL (3.8-10.6)
[2020-07-25] MEDS: PANTOPRAZOLE 40 MG/10 ML VIAL IVP SCH (08:22)
[2020-07-25] MEDS: bisacodyL 10 MG SUPP RECTAL SCH (08:22)
[2020-07-25] MEDS: ENOXAPARIN 40 MG/0.4 ML SYRINGE SQ SCH (08:22)
--- NOTE | 2020-07-25 09:02 | P.PN ---
Progress Note - Text Progress Note Date: 07/25/20 Patient without complaints. NPO. Denies headache or weakness. Pain 0/10. Epidural at 4 ml/hr. Epidural site clean and dry. POD#3 s/p ex lap. Continue epidural until tomorrow.
[2020-07-25 09:17] LABS: Albumin 2.7 g/dL (3.80-4.90); Albumin/Globulin Ratio 2.25 (1.60-3.17); Anion Gap 4.3 mmol/L (4.00-12.00); Calcium 7.7 mg/dL (8.7-10.3); Carbon Dioxide 29.7 mmol/L (21.6-31.8); Globulin 1.2 g/dL (1.6-3.3); Magnesium 1.7 mg/dL (1.5-2.4); Non-African American GFR(CKD) 92.3 (60.0-200.0); Phosphorus 3.2 mg/dL (2.4-5.1); Potassium 3.6 mmol/L (3.5-5.5); Total Bilirubin 0.4 mg/dL (0.2-1.2); Total Protein 3.9 g/dL (6.2-8.2)
--- NOTE | 2020-07-25 11:39 | P.PN ---
<Allyson Liz - Last Filed: 07/25/20 11:53> Subjective Progress Note Date: 07/25/20 CHIEF COMPLAINT: Abdominal pain HISTORY OF PRESENT ILLNESS: Patient is postop day #3 status post exploratory laparotomy with lysis of adhesions for small bowel obstruction secondary to intra-abdominal adhesions. Patient has epidural and Adam catheter. Patient is nothing by mouth. She is on PPN. She is working with physical therapy this morning. She is passing gas. She had some nausea yesterday that has now resolved. She does report some right-sided abdominal pain. She is afebrile. White count 2.8 hemoglobin 9.1 potassium 3.6 magnesium 1.7 NG tube outputs through the night was 150 mL bilious fluid PHYSICAL EXAM: VITAL SIGNS: Reviewed. GENERAL: Well-developed in no acute distress. HEENT: No sclera icterus. Extraocular movements grossly intact. Moist buccal mucosa. Head is atraumatic, normocephalic. ABDOMEN: Soft. Distended. Dressing clean dry and intact. Abdominal binder in place. NEUROLOGIC: Alert and oriented. Cranial nerves II through XII grossly intact. ASSESSMENT: 1. Small bowel obstruction secondary to intra-abdominal adhesions status post exploratory laparotomy with lysis of adhesions. Postop day #3 2. Family history significant for mother with colon cancer 3. History of diabetes mellitus type 2 4. Chronic constipation 5. History of appendectomy 6. Hypokalemia 7. Hypomagnesemia PLAN: -Discontinue epidural, Adam catheter and NG tube -Continue PPN for nutrition support -Replace magnesium and potassium -Keep patient nothing by mouth -Dulcolax daily -Continue abdominal binder -Encouraged incentive spirometer use -Continue physical therapy -GI prophylaxis Protonix and DVT prophylaxis Lovenox Physician Financial Institution Vice President note has been reviewed by physician. Signing provider agrees with the documented findings, assessment, and plan of care. Objective - Vital Signs Vital signs: Vital Signs Temp 98.1 F 07/25/20 05:00 Pulse 74 07/25/20 05:00 Resp 18 07/25/20 05:00 BP 116/57 07/25/20 05:00 Pulse Ox 98 07/25/20 05:00 Intake & Output 07/24/20 07/25/20 07/25/20 18:59 06:59 18:59 Intake Total 932 1825 Output Total 1050 Balance 932 775 Intake: Intake, IV Titration 932 1825 Amount Amino Acid 4.25%-D10w+ 600 Lytes*E* 1,000 ml @ 75 mls/hr IV .BY DURATION [facility] Rx#:[id number] Dextrose 5%-0.45% NaCl 1, 725 000 ml @ 75 mls/hr IV . [id number] [facility] Rx#:[id number] Magnesium Sulfate-D5w Pmx 300 1 gm In Dextrose/Water 1 100ml.bag @ 100 mls/hr IVPB Q1H [facility] Rx#: [id number] Mvi, Adult No.4 with Vit 1100 K 10 ml Trace (Conc-1Ml/ Dose) 1 ml In Amino Acid 4.25%-D10w+Lytes*E* 1,000 ml @ 75 mls/hr IV .BY DURATION [facility] Rx#: [id number] Ropivacaine 250 mg 32 Hydromorphone (Pf) 5 mg In Sodium Chloride 0.9% 200 ml @ Per Protocol EPIDURAL .Q0M [facility] Rx#: [id number] Oral 0 Output: Gastric Drainage 150 Urine 900 Other: Voiding Method Indwelling Catheter Indwelling Catheter Indwelling Catheter - Labs CBC & Chem 7: 07/25/20 06:01 07/25/20 06:01 Labs: Abnormal Lab Results - Last 24 Hours (Table) 07/24/20 07/25/20 07/25/20 Range/Units 17:01 00:54 06:01 WBC 2.8 L (3.8-10.6) k/uL RBC 2.83 L (3.80-5.40) m/uL Hgb 9.1 L (11.4-16.0) gm/dL Hct 27.7 L (34.0-46.0) % Plt Count 135 L (150-450) k/uL Lymphocytes # 0.6 L (1.0-4.8) k/uL Sodium (135-145) mmol/L Creatinine (0.6-1.5) mg/dL BUN/Creatinine Ratio (12.00-20.00) Ratio Glucose (70-110) mg/dL POC Glucose (mg/dL) 217 H 220 H (75-99) mg/dL Calcium (8.7-10.3) mg/dL Alkaline Phosphatase (41-126) U/L Total Protein (6.2-8.2) g/dL Albumin (3.80-4.90) g/dL Globulin (1.6-3.3) g/dL 07/25/20 07/25/20 Range/Units 06:01 06:13 WBC (3.8-10.6) k/uL RBC (3.80-5.40) m/uL Hgb (11.4-16.0) gm/dL Hct (34.0-46.0) % Plt Count (150-450) k/uL Lymphocytes # (1.0-4.8) k/uL Sodium 134 L (135-145) mmol/L Creatinine 0.4 L (0.6-1.5) mg/dL BUN/Creatinine Ratio 40.00 H (12.00-20.00) Ratio Glucose 191 H (70-110) mg/dL POC Glucose (mg/dL) 191 H (75-99) mg/dL Calcium 7.7 L (8.7-10.3) mg/dL Alkaline Phosphatase 38 L (41-126) U/L Total Protein 3.9 L (6.2-8.2) g/dL Albumin 2.70 L (3.80-4.90) g/dL Globulin 1.2 L (1.6-3.3) g/dL <Jose Manuel Price - Last Filed: 07/25/20 15:45> Subjective As above. Patient doing well today. She is passing flatus. We'll remove epidural and nasogastric tube. Remove Adam following that. Increase activity. Begin clear liquids. Objective - Vital Signs Vital signs: Vital Signs Temp 97.7 F 07/25/20 12:05 Pulse 75 07/25/20 12:05 Resp 16 07/25/20 12:05 BP 115/48 07/25/20 12:05 Pulse Ox 98 07/25/20 12:17 Intake & Output 07/24/20 07/25/20 07/25/20 18:59 06:59 18:59 Intake Total 932 2825 Output Total 1050 Balance 932 1775 Weight 51.256 kg Intake: Intake, IV Titration 932 2825 Amount Amino Acid 4.25%-D10w+ 600 1000 Lytes*E* 1,000 ml @ 75 mls/hr IV .BY DURATION [facility] Rx#:[id number] Dextrose 5%-0.45% NaCl 1, 725 000 ml @ 75 mls/hr IV . [id number] [facility] Rx#:[id number] Magnesium Sulfate-D5w Pmx 300 1 gm In Dextrose/Water 1 100ml.bag @ 100 mls/hr IVPB Q1H [facility] Rx#: [id number] Mvi, Adult No.4 with Vit 1100 K 10 ml Trace (Conc-1Ml/ Dose) 1 ml In Amino Acid 4.25%-D10w+Lytes*E* 1,000 ml @ 75 mls/hr IV .BY DURATION [facility] Rx#: [id number] Ropivacaine 250 mg 32 Hydromorphone (Pf) 5 mg In Sodium Chloride 0.9% 200 ml @ Per Protocol EPIDURAL .Q0M [facility] Rx#: [id number] Oral 0 Output: Gastric Drainage 150 Urine 900 Other: Voiding Method Indwelling Catheter Indwelling Catheter Indwelling Catheter # Voids 1 - Labs CBC & Chem 7: 07/25/20 06:01 07/25/20 06:01 Labs: Abnormal Lab Results - Last 24 Hours (Table) 07/24/20 07/25/20 07/25/20 Range/Units 17:01 00:54 06:01 WBC 2.8 L (3.8-10.6) k/uL RBC 2.83 L (3.80-5.40) m/uL Hgb 9.1 L (11.4-16.0) gm/dL Hct 27.7 L (34.0-46.0) % Plt Count 135 L (150-450) k/uL Lymphocytes # 0.6 L (1.0-4.8) k/uL Sodium (135-145) mmol/L Creatinine (0.6-1.5) mg/dL BUN/Creatinine Ratio (12.00-20.00) Ratio Glucose (70-110) mg/dL POC Glucose (mg/dL) 217 H 220 H (75-99) mg/dL Calcium (8.7-10.3) mg/dL Alkaline Phosphatase (41-126) U/L Total Protein (6.2-8.2) g/dL Albumin (3.80-4.90) g/dL Globulin (1.6-3.3) g/dL 09/07/25/20 07/25/20 Range/Units 06:01 06:13 11:48 WBC (3.8-10.6) k/uL RBC (3.80-5.40) m/uL Hgb (11.4-16.0) gm/dL Hct (34.0-46.0) % Plt Count (150-450) k/uL Lymphocytes # (1.0-4.8) k/uL Sodium 134 L (135-145) mmol/L Creatinine 0.4 L (0.6-1.5) mg/dL BUN/Creatinine Ratio 40.00 H (12.00-20.00) Ratio Glucose 191 H (70-110) mg/dL POC Glucose (mg/dL) 191 H 197 H (75-99) mg/dL Calcium 7.7 L (8.7-10.3) mg/dL Alkaline Phosphatase 38 L (41-126) U/L Total Protein 3.9 L (6.2-8.2) g/dL Albumin 2.70 L (3.80-4.90) g/dL Globulin 1.2 L (1.6-3.3) g/dL
[2020-07-25 11:49] LABS: Glucose,Whole Blood 197 mg/dL (75-99)
[2020-07-25] MEDS: MAGNESIUM SULFATE-D5W PMX 1 GM in DEXTROSE/WATER 1 100ML.BAG IVPB SCH ×2 (11:51→12:52)
[2020-07-25] MEDS: POTASSIUM CHLORIDE 10 MEQ in WATER FOR INJECTION 1 100ML.BAG IVPB SCH ×2 (11:51→12:52)
--- NOTE | 2020-07-25 12:38 | P.PN ---
Subjective From records: Patient is admitted for a partial small bowel obstruction patient is passing gas does have a sluggish bowel sounds patient did have NG tube output of around 200 mL total of 800 mL since yesterday. 07/20/2020 patient had output of around 1 50 mL from the NG tube did have bowel movements and does have bowel sounds. Repeat abdominal x-ray still showing bowel obstruction. Patient blood sugars are bit low patient will be switched to D5 normal saline at 75 mL per hour. 07/21/2020 Since the imaging didn't show any significant improvement in bowel obstruction and patient has a NG tube output of 1100 last night patient will undergo laparotomy tomorrow. 07/22/2020 Patient is still having NG tube output of 202 abdominal x-ray still shows significant bowel obstruction all the abdomen is soft and does have bowel sounds. Patient probably will need laparotomy but patient the still thinking about whether to go for surgery or not Subjective 07/23/2020, today is taking care of the patient Patient is status post laparotomy with lysis of adhesion. Today is postop day #1. She still nothing by mouth, abdominal pain is controlled, NG tube is in place with more than 500 mL of dark fluid is aspirated. No bowel movement or gases. Surgery team R following the case closely and they start patient on Dulcolax rectally today. 07/24/20 Patient is sitting in chair comfortable, her abdominal pain is controlled, she still nothing by mouth, no nausea vomiting. Yesterday back in this place. Patient remains an epidural catheter and TPN. She still D5 half-normal saline at 75 mL/h CA-125 antigen and CEA are negative We'll keep close monitoring 07/25/2020 Patient still nothing by mouth, NG tube is in place and she has 150 over liquid discharge overnight. Possible NG tube will be discontinued today per surgery team Abdominal pain is controlled. No bowel movement yet. Surgery team R following the case closely Objective - Vital Signs Vital signs: Vital Signs Temp 97.7 F 07/25/20 12:05 Pulse 75 07/25/20 12:05 Resp 16 07/25/20 12:05 BP 115/48 07/25/20 12:05 Pulse Ox 98 07/25/20 12:17 Intake & Output 07/24/20 07/25/20 07/25/20 18:59 06:59 18:59 Intake Total 932 1825 Output Total 1050 Balance 932 775 Intake: Intake, IV Titration 932 1825 Amount Amino Acid 4.25%-D10w+ 600 Lytes*E* 1,000 ml @ 75 mls/hr IV .BY DURATION [facility] Rx#:[id number] Dextrose 5%-0.45% NaCl 1, 725 000 ml @ 75 mls/hr IV . [id number] [facility] Rx#:[id number] Magnesium Sulfate-D5w Pmx 300 1 gm In Dextrose/Water 1 100ml.bag @ 100 mls/hr IVPB Q1H [facility] Rx#: [id number] Mvi, Adult No.4 with Vit 1100 K 10 ml Trace (Conc-1Ml/ Dose) 1 ml In Amino Acid 4.25%-D10w+Lytes*E* 1,000 ml @ 75 mls/hr IV .BY DURATION [facility] Rx#: [id number] Ropivacaine 250 mg 32 Hydromorphone (Pf) 5 mg In Sodium Chloride 0.9% 200 ml @ Per Protocol EPIDURAL .Q0M PRN Rx#: [id number] Oral 0 Output: Gastric Drainage 150 Urine 900 Other: Voiding Method Indwelling Catheter Indwelling Catheter Indwelling Catheter - Exam GENERAL: The patient is alert and oriented x3, not in any acute distress. Well developed, well nourished. HEENT: Pupils are round and equally reacting to light. EOMI. No scleral icterus. No conjunctival pallor. Normocephalic, atraumatic. No pharyngeal erythema. No thyromegaly. CARDIOVASCULAR: S1 and S2 present. No murmurs, rubs, or gallops. PULMONARY: Chest is clear to auscultation, no wheezing or crackles. -ABDOMEN: Soft, nontender, nondistended, normoactive bowel sounds. No palpable organomegaly. Abdominal incision is dry and clean MUSCULOSKELETAL: No joint swelling or deformity. EXTREMITIES: No cyanosis, clubbing, or pedal edema. NEUROLOGICAL: Gross neurological examination did not reveal any focal deficits. SKIN: No rashes. no petechiae. - Labs CBC & Chem 7: 07/25/20 06:01 07/25/20 06:01 Labs: Abnormal Lab Results - Last 24 Hours (Table) 07/24/20 07/25/20 07/25/20 Range/Units 17:01 00:54 06:01 WBC 2.8 L (3.8-10.6) k/uL RBC 2.83 L (3.80-5.40) m/uL Hgb 9.1 L (11.4-16.0) gm/dL Hct 27.7 L (34.0-46.0) % Plt Count 135 L (150-450) k/uL Lymphocytes # 0.6 L (1.0-4.8) k/uL Sodium (135-145) mmol/L Creatinine (0.6-1.5) mg/dL BUN/Creatinine Ratio (12.00-20.00) Ratio Glucose (70-110) mg/dL POC Glucose (mg/dL) 217 H 220 H (75-99) mg/dL Calcium (8.7-10.3) mg/dL Alkaline Phosphatase (41-126) U/L Total Protein (6.2-8.2) g/dL Albumin (3.80-4.90) g/dL Globulin (1.6-3.3) g/dL 07/25/20 07/25/20 07/25/20 Range/Units 06:01 06:13 11:48 WBC (3.8-10.6) k/uL RBC (3.80-5.40) m/uL Hgb (11.4-16.0) gm/dL Hct (34.0-46.0) % Plt Count (150-450) k/uL Lymphocytes # (1.0-4.8) k/uL Sodium 134 L (135-145) mmol/L Creatinine 0.4 L (0.6-1.5) mg/dL BUN/Creatinine Ratio 40.00 H (12.00-20.00) Ratio Glucose 191 H (70-110) mg/dL POC Glucose (mg/dL) 191 H 197 H (75-99) mg/dL Calcium 7.7 L (8.7-10.3) mg/dL Alkaline Phosphatase 38 L (41-126) U/L Total Protein 3.9 L (6.2-8.2) g/dL Albumin 2.70 L (3.80-4.90) g/dL Globulin 1.2 L (1.6-3.3) g/dL Assessment and Plan Assessment: -Ileus/mechanical small bowel obstruction: Status post exploratory laparotomy and lysis of adhesions. Advance diet when patient is ready for surgery team. -Small bilateral pleural effusions patient doesn't have any hypoxemia at this time patient will need IV fluids which were continued for now -Type 2 diabetes mellitus, blood sugars are actually low patient will be continued on D5 half-normal saline -Hyperlipidemia -DVT prophylaxis Lovenox
[2020-07-25] MEDS: 1: MVI, ADULT NO.4 WITH VIT K 10 ML, TRACE (CONC-1ML/DOSE) 1 ML in AMINO ACID 4.25%-D10W IV SCH ×3 (13:11)
--- NOTE | 2020-07-25 14:29 | CDI ---
Documentation Clarification Form Date: 07/25/2020 02:16:11 PM From: Ciara GreenbergJESSA corado, CCDS Admit Date: 07/17/2020 09:25:00 PM Patient Name: Mely Bass Visit Number: [id number] Discharge Date: ATTENTION: The Clinical Documentation Specialists (CDI) and [facility] Coding Staff appreciate your assistance in clarifying documentation. Please respond to the clarification below the line at the bottom and electronically sign. The CDI & [facility] Coding staff will review the response and follow-up if needed. Please note: Queries are made part of the Legal Health Record. If you have any questions, please contact the author of this message via ITS. Dr. Yunier Cartwright. Sheet: Per the 07/18 History & Physical & subsequent Progress Notes, the patient has Type II Diabetes Mellitus on oral hyperglycemia agents. Beginning with the 07/20 Medical Management Progress Note & continued in subsequent Progress Notes, the following is documented: "Patient blood sugars are bit low patient will be switched to D5 normal saline at 75 mL per hour." History/Risk Factors: DM II, Hyperlipidemia, Skin Cancer with removal, Appendectomy, Hysterectomy and Heart Catheterization. Home Meds include: Actos 30 mg daily & Januvia 50 mg daily. Clinical Indicators: The patient presented to the ED on 07/17 via EMS with abdominal pain & distention, nausea & vomiting. She is admitted with a Small Bowel Obstruction status post Exploratory Laparotomy with Lysis of Adhesions on 07/22. LAB: Glucose 07/17: 228^. 07/18: 166^. 07/19: 102. 07/21: 135^. 07/22: 168^. 07/24: 224^. 07/25: 191^. Treatment: 07/20: IV Dextrose 5%/NaCl 1,000 mls @ 75 mls/hr. 07/22: IV Dextrose/NaCl 1,000 mls @ 75 mls/hr. 07/24: Novolog sq. In order to capture the severity of Illness and necessary documentation specificity, please clarify: DM Type 2, With: o Hypoglycemia o Hyperglycemia o Other, please specify: o Unable to determine (Last Revision: July 2017) mild hyperglycemia MTDD
[2020-07-25] MEDS ORDERED: HYDROmorphone 1 MG/ML 1 ML SYRINGE IVP PRN (15:45)
[2020-07-25] MEDS ORDERED: traMADol 50 MG TAB PO PRN (15:48)
[2020-07-25 18:34] LABS: Glucose,Whole Blood 241 mg/dL (75-99)
[2020-07-25] MEDS: FAT EMULSION 20% 250 ML IV SCH (19:02)
[2020-07-25] MEDS: SODIUM CHLORIDE 0.9% 1,000 ML IV SCH (19:15)
[2020-07-25] MEDS: EZETIMIBE 10 MG TAB PO SCH (21:48)
[2020-07-26 00:12] LABS: Glucose,Whole Blood 200 mg/dL (75-99)
[2020-07-26] MEDS: INSULIN ASPART (NovoLOG) 100 UNIT/ML VIAL SQ SCH ×4 (00:44→17:55)
[2020-07-26] MEDS: 1: MVI, ADULT NO.4 WITH VIT K 10 ML, TRACE (CONC-1ML/DOSE) 1 ML in AMINO ACID 4.25%-D10W IV SCH ×9 (02:18→23:40)
[2020-07-26 05:46] LABS: Basophils % (A) 0 %; Eosinophils # (A) 0.1 k/uL (0-0.7); Eosinophils % (A) 2 %; HCT 31.5 % (34.0-46.0); HGB 10.5 gm/dL (11.4-16.0); Lymphocytes # (A) 0.4 k/uL (1.0-4.8); Lymphocytes % (A) 10 %; MCHC 33.2 g/dL (31.0-37.0); MCV 96.3 fL (80.0-100.0); Monocytes # (A) 0.2 k/uL (0-1.0); Monocytes % (A) 6 %; Neutrophils # (A) 3.1 k/uL (1.3-7.7); Neutrophils % (A) 80 %; Platelet Count 167 k/uL (150-450); RBC 3.27 m/uL (3.80-5.40); RDW 13.6 % (11.5-15.5); WBC 3.9 k/uL (3.8-10.6)
[2020-07-26 06:26] LABS: Glucose,Whole Blood 184 mg/dL (75-99)
[2020-07-26] MEDS: SODIUM CHLORIDE 0.9% 1,000 ML IV SCH ×3 (06:26→22:17)
--- NOTE | 2020-07-26 06:34 | P.PN ---
Progress Note - Text Progress Note Date: 07/26/20 Patient without complaints. Tolerating ice chips. Epidural was removed yesterday as per primary team. Denies headache or weakness. Pain 0/10. . POD#4 s/p ex lap. Will sign off.
[2020-07-26] MEDS: PANTOPRAZOLE 40 MG/10 ML VIAL IVP SCH (08:38)
[2020-07-26] MEDS: ENOXAPARIN 40 MG/0.4 ML SYRINGE SQ SCH (08:38)
[2020-07-26] MEDS: bisacodyL 10 MG SUPP RECTAL SCH (08:38)
--- NOTE | 2020-07-26 09:22 | P.PN ---
Subjective From records: Patient is admitted for a partial small bowel obstruction patient is passing gas does have a sluggish bowel sounds patient did have NG tube output of around 200 mL total of 800 mL since yesterday. 07/20/2020 patient had output of around 1 50 mL from the NG tube did have bowel movements and does have bowel sounds. Repeat abdominal x-ray still showing bowel obstruction. Patient blood sugars are bit low patient will be switched to D5 normal saline at 75 mL per hour. 07/21/2020 Since the imaging didn't show any significant improvement in bowel obstruction and patient has a NG tube output of 1100 last night patient will undergo laparotomy tomorrow. 07/22/2020 Patient is still having NG tube output of 202 abdominal x-ray still shows significant bowel obstruction all the abdomen is soft and does have bowel sounds. Patient probably will need laparotomy but patient the still thinking about whether to go for surgery or not Subjective 07/23/2020, today is taking care of the patient Patient is status post laparotomy with lysis of adhesion. Today is postop day #1. She still nothing by mouth, abdominal pain is controlled, NG tube is in place with more than 500 mL of dark fluid is aspirated. No bowel movement or gases. Surgery team R following the case closely and they start patient on Dulcolax rectally today. 07/24/20 Patient is sitting in chair comfortable, her abdominal pain is controlled, she still nothing by mouth, no nausea vomiting. Yesterday back in this place. Patient remains an epidural catheter and TPN. She still D5 half-normal saline at 75 mL/h CA-125 antigen and CEA are negative We'll keep close monitoring 07/25/2020 Patient still nothing by mouth, NG tube is in place and she has 150 over liquid discharge overnight. Possible NG tube will be discontinued today per surgery team Abdominal pain is controlled. No bowel movement yet. Surgery team R following the case closely 07/26/2020 Patient awake, NG tube is out. Patient feels hungry and wants to eat. She did not have bowel movements yet but she is passing gas. Adam catheter was discontinued and she was retaining urine 1000 this morning and later on was 350, we will keep checking bladder scan. Discussed with staff CBC showed improved WBC count back to normal at 3.9K, hemoglobin stable at 10.5. Glucose controlled. Creatinine is normal at 0.4. Objective - Vital Signs Vital signs: Vital Signs Temp 97.7 F 07/26/20 05:11 Pulse 74 07/26/20 05:11 Resp 16 07/26/20 05:11 BP 131/66 07/26/20 05:11 Pulse Ox 100 07/26/20 05:11 Intake & Output 07/25/20 07/26/20 07/26/20 18:59 06:59 18:59 Intake Total 1011 885 Output Total 1918 Balance 1011 -1033 Weight 51.256 kg Intake: Intake, IV Titration 1011 885 Amount Fat Emulsion 20% 250 ml @ 160 20.833 mls/hr IV MoWeFr@ 1700 [facility] Rx#:[id number] Mvi, Adult No.4 with Vit 1011 K 10 ml Trace (Conc-1Ml/ Dose) 1 ml In Amino Acid 4.25%-D10w+Lytes*E* 1,000 ml @ 75 mls/hr IV .BY DURATION [facility] Rx#: [id number] Sodium Chloride 0.9% 1, 725 000 ml @ 75 mls/hr IV . [id number] [facility] Rx#:[id number] Output: Urine 1153 Uretheral (Adam) 1000 Post Void Residual 765 Other: Voiding Method Indwelling Catheter Bedside Commode # Voids 1 1 - Exam GENERAL: The patient is alert and oriented x3, not in any acute distress. Well developed, well nourished. HEENT: Pupils are round and equally reacting to light. EOMI. No scleral icterus. No conjunctival pallor. Normocephalic, atraumatic. No pharyngeal erythema. No thyromegaly. CARDIOVASCULAR: S1 and S2 present. No murmurs, rubs, or gallops. PULMONARY: Chest is clear to auscultation, no wheezing or crackles. -ABDOMEN: Soft, nontender, nondistended, normoactive bowel sounds. No palpable organomegaly. Abdominal incision is dry and clean MUSCULOSKELETAL: No joint swelling or deformity. EXTREMITIES: No cyanosis, clubbing, or pedal edema. NEUROLOGICAL: Gross neurological examination did not reveal any focal deficits. SKIN: No rashes. no petechiae. - Labs CBC & Chem 7: 07/26/20 05:22 07/25/20 06:01 Labs: Abnormal Lab Results - Last 24 Hours (Table) 07/25/20 07/25/20 07/25/20 Range/Units 06:01 11:48 18:14 RBC (3.80-5.40) m/uL Hgb (11.4-16.0) gm/dL Hct (34.0-46.0) % Lymphocytes # (1.0-4.8) k/uL Sodium 134 L (135-145) mmol/L Creatinine 0.4 L (0.6-1.5) mg/dL BUN/Creatinine Ratio 40.00 H (12.00-20.00) Ratio Glucose 191 H (70-110) mg/dL POC Glucose (mg/dL) 197 H 241 H (75-99) mg/dL Calcium 7.7 L (8.7-10.3) mg/dL Alkaline Phosphatase 38 L (41-126) U/L Total Protein 3.9 L (6.2-8.2) g/dL Albumin 2.70 L (3.80-4.90) g/dL Globulin 1.2 L (1.6-3.3) g/dL 07/26/20 07/26/20 07/26/20 Range/Units 00:10 05:22 06:22 RBC 3.27 L (3.80-5.40) m/uL Hgb 10.5 L (11.4-16.0) gm/dL Hct 31.5 L (34.0-46.0) % Lymphocytes # 0.4 L (1.0-4.8) k/uL Sodium (135-145) mmol/L Creatinine (0.6-1.5) mg/dL BUN/Creatinine Ratio (12.00-20.00) Ratio Glucose (70-110) mg/dL POC Glucose (mg/dL) 200 H 184 H (75-99) mg/dL Calcium (8.7-10.3) mg/dL Alkaline Phosphatase (41-126) U/L Total Protein (6.2-8.2) g/dL Albumin (3.80-4.90) g/dL Globulin (1.6-3.3) g/dL Assessment and Plan Assessment: -Ileus/mechanical small bowel obstruction: Status post exploratory laparotomy and lysis of adhesions. Advance diet when patient is ready for surgery team. -Small bilateral pleural effusions patient doesn't have any hypoxemia at this time patient will need IV fluids which were continued for now -Type 2 diabetes mellitus, blood sugars are actually low patient will be continued on D5 half-normal saline -Hyperlipidemia -DVT prophylaxis Lovenox
[2020-07-26 09:46] LABS: Albumin/Globulin Ratio 2.14 (1.60-3.17); Anion Gap 5.4 mmol/L (4.00-12.00); BUN/Creat Ratio 37.5 Ratio (12.00-20.00); Calcium 8.3 mg/dL (8.7-10.3); Carbon Dioxide 32.6 mmol/L (21.6-31.8); Globulin 1.4 g/dL (1.6-3.3); Magnesium 1.6 mg/dL (1.5-2.4); Non-African American GFR(CKD) 92.3 (60.0-200.0); Phosphorus 2.8 mg/dL (2.4-5.1); Potassium 3.8 mmol/L (3.5-5.5); Total Bilirubin 0.4 mg/dL (0.3-1.2); Total Protein 4.4 g/dL (6.2-8.2)
[2020-07-26 11:42] LABS: Glucose,Whole Blood 225 mg/dL (75-99)
--- NOTE | 2020-07-26 12:23 | P.PN ---
Subjective Progress Note Date: 07/26/20 Principal diagnosis: Small bowel obstruction Patient doing well today. She is passing flatus. No bowel movement. No nausea or vomiting. Tolerating clear liquids. White blood cell count normal. Some urinary retention. Objective - Vital Signs Vital signs: Vital Signs Temp 97.7 F 07/26/20 05:11 Pulse 74 07/26/20 05:11 Resp 16 07/26/20 05:11 BP 131/66 07/26/20 05:11 Pulse Ox 100 07/26/20 05:11 Intake & Output 07/25/20 07/26/20 07/26/20 18:59 06:59 18:59 Intake Total 1011 885 Output Total 1918 800 Balance 1011 -1033 -800 Weight 51.256 kg Intake: Intake, IV Titration 1011 885 Amount Fat Emulsion 20% 250 ml @ 160 20.833 mls/hr IV MoWeFr@ 1700 [facility] Rx#:[id number] Mvi, Adult No.4 with Vit 1011 K 10 ml Trace (Conc-1Ml/ Dose) 1 ml In Amino Acid 4.25%-D10w+Lytes*E* 1,000 ml @ 75 mls/hr IV .BY DURATION [facility] Rx#: [id number] Sodium Chloride 0.9% 1, 725 000 ml @ 75 mls/hr IV . [id number] [facility] Rx#:[id number] Output: Urine 1153 800 Straight 800 Uretheral (Adam) 1000 Post Void Residual 765 Other: Voiding Method Indwelling Catheter Bedside Commode Bedside Commode # Voids 1 1 - Exam Abdomen: Soft, mild distention, minimal tenderness, dressing clean and dry - Labs CBC & Chem 7: 07/26/20 05:22 07/26/20 05:22 Labs: Abnormal Lab Results - Last 24 Hours (Table) 07/25/20 07/26/20 07/26/20 Range/Units 18:14 00:10 05:22 RBC (3.80-5.40) m/uL Hgb (11.4-16.0) gm/dL Hct (34.0-46.0) % Lymphocytes # (1.0-4.8) k/uL Carbon Dioxide 32.6 H (21.6-31.8) mmol/L Creatinine 0.4 L (0.6-1.5) mg/dL BUN/Creatinine Ratio 37.50 H (12.00-20.00) Ratio Glucose 212 H (70-110) mg/dL POC Glucose (mg/dL) 241 H 200 H (75-99) mg/dL Calcium 8.3 L (8.7-10.3) mg/dL Total Protein 4.4 L (6.2-8.2) g/dL Albumin 3.00 L (3.80-4.90) g/dL Globulin 1.4 L (1.6-3.3) g/dL 07/26/20 07/26/20 07/26/20 Range/Units 05:22 06:22 11:36 RBC 3.27 L (3.80-5.40) m/uL Hgb 10.5 L (11.4-16.0) gm/dL Hct 31.5 L (34.0-46.0) % Lymphocytes # 0.4 L (1.0-4.8) k/uL Carbon Dioxide (21.6-31.8) mmol/L Creatinine (0.6-1.5) mg/dL BUN/Creatinine Ratio (12.00-20.00) Ratio Glucose (70-110) mg/dL POC Glucose (mg/dL) 184 H 225 H (75-99) mg/dL Calcium (8.7-10.3) mg/dL Total Protein (6.2-8.2) g/dL Albumin (3.80-4.90) g/dL Globulin (1.6-3.3) g/dL Assessment and Plan (1) Small bowel obstruction Narrative/Plan: Patient doing fairly well. May require Adam catheter replacement because of urinary retention. Continue liquid diet. Ambulate. Current Visit: Yes Status: Acute Code(s): K56.609 - UNSP INTESTNL OBST, UNSP TO PARTIAL VERSUS COMPLETE OBST SNOMED Code(s): 654765160
[2020-07-26] MEDS ORDERED: POTASSIUM CHLORIDE 10 MEQ in WATER FOR INJECTION 1 100ML.BAG IVPB ONE (13:00)
[2020-07-26] MEDS: MAGNESIUM SULFATE-D5W PMX 1 GM in DEXTROSE/WATER 1 100ML.BAG IVPB SCH ×2 (14:59→17:56)
[2020-07-26 17:22] LABS: Glucose,Whole Blood 193 mg/dL (75-99)
[2020-07-26] MEDS: EZETIMIBE 10 MG TAB PO SCH (20:49)
[2020-07-27 00:22] LABS: Glucose,Whole Blood 191 mg/dL (75-99)
[2020-07-27] MEDS: INSULIN ASPART (NovoLOG) 100 UNIT/ML VIAL SQ SCH ×5 (00:29→21:04)
[2020-07-27 06:15] LABS: Basophils % (A) 0 %; Eosinophils # (A) 0.1 k/uL (0-0.7); Eosinophils % (A) 2 %; HCT 28.9 % (34.0-46.0); HGB 9.6 gm/dL (11.4-16.0); Lymphocytes # (A) 0.4 k/uL (1.0-4.8); Lymphocytes % (A) 11 %; MCH 31.5 pg (25.0-35.0); MCHC 33.1 g/dL (31.0-37.0); MCV 95.3 fL (80.0-100.0); Mean Platelet Volume 7.7; Monocytes # (A) 0.3 k/uL (0-1.0); Monocytes % (A) 7 %; Neutrophils % (A) 78 %; Platelet Count 176 k/uL (150-450); RBC 3.03 m/uL (3.80-5.40); RDW 13.8 % (11.5-15.5); WBC 3.9 k/uL (3.8-10.6)
[2020-07-27 07:18] LABS: Glucose,Whole Blood 124 mg/dL (75-99)
[2020-07-27] MEDS: bisacodyL 10 MG SUPP RECTAL SCH (09:21)
[2020-07-27] MEDS: ENOXAPARIN 40 MG/0.4 ML SYRINGE SQ SCH (09:21)
[2020-07-27] MEDS: PANTOPRAZOLE 40 MG/10 ML VIAL IVP SCH (09:22)
[2020-07-27 09:46] LABS: African American GFR (CKD) 117.7 (60.0-200.0); Anion Gap 4.1 mmol/L (4.00-12.00); BUN/Creat Ratio 26.67 Ratio (12.00-20.00); Carbon Dioxide 33.9 mmol/L (21.6-31.8); Magnesium 1.5 mg/dL (1.5-2.4); Non-African American GFR(CKD) 101.5 (60.0-200.0); Phosphorus 3.1 mg/dL (2.4-5.1); Potassium 3.1 mmol/L (3.5-5.5)
[2020-07-27] MEDS ORDERED: Magnesium Replacement Protocol 1 EACH MISC MISCELLANE PRN (10:45)
[2020-07-27] MEDS ORDERED: Potassium Replacement Protocol 1 EACH MISC MISCELLANE PRN (10:45)
[2020-07-27 11:58] LABS: Glucose,Whole Blood 212 mg/dL (75-99)
--- NOTE | 2020-07-27 12:02 | P.PN ---
Subjective Progress Note Date: 07/27/20 Principal diagnosis: Small bowel obstruction Patient doing well today. No pain. She did have some hard stool bowel movements yesterday. Enema seemed to work well for her. White blood cell count normal. She would like more to eat. Objective - Vital Signs Vital signs: Vital Signs Temp 98.0 F 07/27/20 04:06 Pulse 73 07/27/20 04:06 Resp 16 07/27/20 04:06 BP 123/56 07/27/20 04:06 Pulse Ox 99 07/27/20 04:06 Intake & Output 07/26/20 07/27/20 07/27/20 18:59 06:59 18:59 Intake Total 240 825 Output Total 1300 1750 Balance -1060 -925 Intake: Intake, IV Titration 725 Amount Sodium Chloride 0.9% 1, 725 000 ml @ 75 mls/hr IV . [id number] [facility] Rx#:[id number] Oral 240 100 Output: Urine 1300 1375 Straight 800 Uretheral (Adam) 1375 Post Void Residual 375 Other: Voiding Method Bedside Commode Indwelling Catheter # Voids 2 3 # Bowel Movements 1 - Exam Abdomen: Soft, nondistended, incision clean and dry - Labs CBC & Chem 7: 07/27/20 05:53 07/27/20 05:53 Labs: Abnormal Lab Results - Last 24 Hours (Table) 07/26/20 07/27/20 07/27/20 Range/Units 17:21 00:20 05:53 RBC 3.03 L (3.80-5.40) m/uL Hgb 9.6 L (11.4-16.0) gm/dL Hct 28.9 L (34.0-46.0) % Lymphocytes # 0.4 L (1.0-4.8) k/uL Potassium (3.5-5.5) mmol/L Carbon Dioxide (21.6-31.8) mmol/L BUN (9.0-27.0) mg/dL Creatinine (0.6-1.5) mg/dL BUN/Creatinine Ratio (12.00-20.00) Ratio Glucose (70-110) mg/dL POC Glucose (mg/dL) 193 H 191 H (75-99) mg/dL Calcium (8.7-10.3) mg/dL 07/27/20 07/27/20 07/27/20 Range/Units 05:53 07:07 11:56 RBC (3.80-5.40) m/uL Hgb (11.4-16.0) gm/dL Hct (34.0-46.0) % Lymphocytes # (1.0-4.8) k/uL Potassium 3.1 L (3.5-5.5) mmol/L Carbon Dioxide 33.9 H (21.6-31.8) mmol/L BUN 8.0 L (9.0-27.0) mg/dL Creatinine 0.3 L (0.6-1.5) mg/dL BUN/Creatinine Ratio 26.67 H (12.00-20.00) Ratio Glucose 113 H (70-110) mg/dL POC Glucose (mg/dL) 124 H 212 H (75-99) mg/dL Calcium 8.0 L (8.7-10.3) mg/dL Assessment and Plan (1) Small bowel obstruction Narrative/Plan: Patient doing well today. Will increase diet. Continue enemas. Home or rehab 1-2 days. Current Visit: Yes Status: Acute Code(s): K56.609 - UNSP INTESTNL OBST, UNSP TO PARTIAL VERSUS COMPLETE OBST SNOMED Code(s): 267079363
[2020-07-27] MEDS: POTASSIUM CHLORIDE ER 20 MEQ TAB.ER PO SCH ×2 (12:06→13:47)
[2020-07-27] MEDS: MAGNESIUM SULFATE-D5W PMX 1 GM in DEXTROSE/WATER 1 100ML.BAG IVPB SCH ×2 (12:07→13:46)
[2020-07-27] MEDS: 1: MVI, ADULT NO.4 WITH VIT K 10 ML, TRACE (CONC-1ML/DOSE) 1 ML in AMINO ACID 4.25%-D10W IV SCH ×3 (12:08)
[2020-07-27 17:38] LABS: Glucose,Whole Blood 214 mg/dL (75-99)
[2020-07-27] MEDS: SODIUM CHLORIDE 0.9% 1,000 ML IV SCH (18:30)
[2020-07-27 20:38] LABS: Glucose,Whole Blood 162 mg/dL (75-99)
--- NOTE | 2020-07-27 20:56 | P.PN ---
Subjective From records: Patient is admitted for a partial small bowel obstruction patient is passing gas does have a sluggish bowel sounds patient did have NG tube output of around 200 mL total of 800 mL since yesterday. 07/20/2020 patient had output of around 1 50 mL from the NG tube did have bowel movements and does have bowel sounds. Repeat abdominal x-ray still showing bowel obstruction. Patient blood sugars are bit low patient will be switched to D5 normal saline at 75 mL per hour. 07/21/2020 Since the imaging didn't show any significant improvement in bowel obstruction and patient has a NG tube output of 1100 last night patient will undergo laparotomy tomorrow. 07/22/2020 Patient is still having NG tube output of 202 abdominal x-ray still shows significant bowel obstruction all the abdomen is soft and does have bowel sounds. Patient probably will need laparotomy but patient the still thinking about whether to go for surgery or not Subjective 07/23/2020, today is taking care of the patient Patient is status post laparotomy with lysis of adhesion. Today is postop day #1. She still nothing by mouth, abdominal pain is controlled, NG tube is in place with more than 500 mL of dark fluid is aspirated. No bowel movement or gases. Surgery team R following the case closely and they start patient on Dulcolax rectally today. 07/24/20 Patient is sitting in chair comfortable, her abdominal pain is controlled, she still nothing by mouth, no nausea vomiting. Yesterday back in this place. Patient remains an epidural catheter and TPN. She still D5 half-normal saline at 75 mL/h CA-125 antigen and CEA are negative We'll keep close monitoring 07/25/2020 Patient still nothing by mouth, NG tube is in place and she has 150 over liquid discharge overnight. Possible NG tube will be discontinued today per surgery team Abdominal pain is controlled. No bowel movement yet. Surgery team R following the case closely 07/26/2020 Patient awake, NG tube is out. Patient feels hungry and wants to eat. She did not have bowel movements yet but she is passing gas. Adam catheter was discontinued and she was retaining urine 1000 this morning and later on was 350, we will keep checking bladder scan. Discussed with staff CBC showed improved WBC count back to normal at 3.9K, hemoglobin stable at 10.5. Glucose controlled. Creatinine is normal at 0.4. 07/27/2020 Patient is awake and alert, she tolerated liquid diet and she is been advanced to full liquid diet by surgery team. She had an enema followed by lots of her distal. She has persistent urinary retention and Adam catheter has to be placed back Objective - Vital Signs Vital signs: Vital Signs Temp 98.0 F 07/27/20 13:00 Pulse 74 07/27/20 13:00 Resp 18 07/27/20 13:00 BP 147/70 07/27/20 13:00 Pulse Ox 99 07/27/20 13:00 Intake & Output 07/27/20 07/27/20 07/28/20 06:59 18:59 06:59 Intake Total 825 725 Output Total 1750 Balance -925 725 Intake: Intake, IV Titration 725 725 Amount Magnesium Sulfate-D5w Pmx 200 1 gm In Dextrose/Water 1 100ml.bag @ 100 mls/hr IVPB Q1H [facility] Rx#: [id number] Sodium Chloride 0.9% 1, 725 525 000 ml @ 75 mls/hr IV . [id number] [facility] Rx#:[id number] Oral 100 Output: Urine 1375 Uretheral (Adam) 1375 Post Void Residual 375 Other: Voiding Method Indwelling Catheter # Voids 3 # Bowel Movements 1 4 - Exam GENERAL: The patient is alert and oriented x3, not in any acute distress. Well developed, well nourished. HEENT: Pupils are round and equally reacting to light. EOMI. No scleral icterus. No conjunctival pallor. Normocephalic, atraumatic. No pharyngeal erythema. No thyromegaly. CARDIOVASCULAR: S1 and S2 present. No murmurs, rubs, or gallops. PULMONARY: Chest is clear to auscultation, no wheezing or crackles. -ABDOMEN: Soft, nontender, nondistended, normoactive bowel sounds. No palpable organomegaly. Abdominal incision is dry and clean MUSCULOSKELETAL: No joint swelling or deformity. EXTREMITIES: No cyanosis, clubbing, or pedal edema. NEUROLOGICAL: Gross neurological examination did not reveal any focal deficits. SKIN: No rashes. no petechiae. - Labs CBC & Chem 7: 07/27/20 05:53 07/27/20 05:53 Labs: Abnormal Lab Results - Last 24 Hours (Table) 07/27/20 07/27/2007/27/20 Range/Units 00:20 05:53 05:53 RBC 3.03 L (3.80-5.40) m/uL Hgb 9.6 L (11.4-16.0) gm/dL Hct 28.9 L (34.0-46.0) % Lymphocytes # 0.4 L (1.0-4.8) k/uL Potassium 3.1 L (3.5-5.5) mmol/L Carbon Dioxide 33.9 H (21.6-31.8) mmol/L BUN 8.0 L (9.0-27.0) mg/dL Creatinine 0.3 L (0.6-1.5) mg/dL BUN/Creatinine Ratio 26.67 H (12.00-20.00) Ratio Glucose 113 H (70-110) mg/dL POC Glucose (mg/dL) 191 H (75-99) mg/dL Calcium 8.0 L (8.7-10.3) mg/dL 07/27/20 07/27/20 07/27/20 Range/Units 07:07 11:56 17:33 RBC (3.80-5.40) m/uL Hgb (11.4-16.0) gm/dL Hct (34.0-46.0) % Lymphocytes # (1.0-4.8) k/uL Potassium (3.5-5.5) mmol/L Carbon Dioxide (21.6-31.8) mmol/L BUN (9.0-27.0) mg/dL Creatinine (0.6-1.5) mg/dL BUN/Creatinine Ratio (12.00-20.00) Ratio Glucose (70-110) mg/dL POC Glucose (mg/dL) 124 H 212 H 214 H (75-99) mg/dL Calcium (8.7-10.3) mg/dL 07/27/20 Range/Units 20:37 RBC (3.80-5.40) m/uL Hgb (11.4-16.0) gm/dL Hct (34.0-46.0) % Lymphocytes # (1.0-4.8) k/uL Potassium (3.5-5.5) mmol/L Carbon Dioxide (21.6-31.8) mmol/L BUN (9.0-27.0) mg/dL Creatinine (0.6-1.5) mg/dL BUN/Creatinine Ratio (12.00-20.00) Ratio Glucose (70-110) mg/dL POC Glucose (mg/dL) 162 H (75-99) mg/dL Calcium (8.7-10.3) mg/dL Assessment and Plan Assessment: -Ileus/mechanical small bowel obstruction: Status post exploratory laparotomy and lysis of adhesions. Advance diet as tolerated. -Small bilateral pleural effusions patient doesn't have any hypoxemia at this time patient will need IV fluids which were continued for now, Lower legs to 50 mL per hour -Urinary retention: Continue with Adam catheter and follow-up with urologist as an outpatient -Type 2 diabetes mellitus, blood sugars are actually low patient will be continued on D5 half-normal saline -Hyperlipidemia -DVT prophylaxis Lovenox
[2020-07-27] MEDS: EZETIMIBE 10 MG TAB PO SCH (21:05)
[2020-07-28 05:07] LABS: Basophils % (A) 0 %; Eosinophils # (A) 0.1 k/uL (0-0.7); Eosinophils % (A) 3 %; HCT 28.2 % (34.0-46.0); HGB 9.4 gm/dL (11.4-16.0); Lymphocytes # (A) 0.7 k/uL (1.0-4.8); Lymphocytes % (A) 16 %; MCH 32.3 pg (25.0-35.0); MCHC 33.3 g/dL (31.0-37.0); Monocytes # (A) 0.3 k/uL (0-1.0); Monocytes % (A) 8 %; Neutrophils % (A) 71 %; Platelet Count 249 k/uL (150-450); RBC 2.91 m/uL (3.80-5.40); WBC 4.2 k/uL (3.8-10.6)
[2020-07-28 07:06] LABS: Glucose,Whole Blood 117 mg/dL (75-99)
[2020-07-28] MEDS: INSULIN ASPART (NovoLOG) 100 UNIT/ML VIAL SQ SCH ×4 (07:32→21:12)
--- NOTE | 2020-07-28 08:28 | CDI ---
Documentation Clarification Form Date: 07/28/2020 08:12:17 AM From: Ciara Greenberg CCS, CCDS Admit Date: 07/17/2020 09:25:00 PM Patient Name: Mely Bass Visit Number: [id number] Discharge Date: ATTENTION: The Clinical Documentation Specialists (CDI) and [facility] Coding Staff appreciate your assistance in clarifying documentation. Please respond to the clarification below the line at the bottom and electronically sign. The CDI & [facility] Coding staff will review the response and follow-up if needed. Please note: Queries are made part of the Legal Health Record. If you have any questions, please contact the author of this message via ITS. Dr. Jose Manuel Price: Per the 07/26 Surgeon's Progress Note: "Some urinary retention." "Abdomen: soft, mild distention, minimal tenderness...". Assessment: "May require Adam catheter replacement because of urinary retention." Per the 07/27 Medical Management Progress Note: "She has persistent urinary retention and Adam catheter has to be placed back." Assessment: "Urinary retention: Continue with Adam catheter and follow-up with urologist as an outpatient." Patients Admitting Diagnosis: Small Bowel Obstruction Post-Operative Diagnosis: Small bowel obstruction secondary to intra-abdominal adhesions. Procedure performed: Exploratory laparotomy with lysis of adhesions. History/Risk Factors: DM I, Hyperlipidemia. Surgery History: Appendectomy & Hysterectomy. Clinical Indicators: Presented to the ED on 07/17 with abdominal pain, nausea & vomiting via EMS. Treatment 07/17 ED: IV Fentanyl, IV fluid bolus 500 mls @ 999 mls/hr, IV Morphine, IV Zofran, IV fluid rate 1,000 mls @ 100 mls/hr. NGT placed. To OR on 07/22. Postoperatively: TPN, IV MagSulfate, IV Kcl, IV Dilaudid. Epidural & Adam catheter & NGT removed on 07/25. Adam catheter replaced on 07/27. In order to accurately reflect this patients severity of illness, please clarify if the patient's urinary retention: Is a complication of surgical procedure Is an expected outcome of the surgical procedure Other cause please specify: Unable to determine (Last Revision: December 2019) MTDD
[2020-07-28] MEDS: ENOXAPARIN 40 MG/0.4 ML SYRINGE SQ SCH (08:32)
[2020-07-28] MEDS: bisacodyL 10 MG SUPP RECTAL SCH (08:32)
[2020-07-28] MEDS: PANTOPRAZOLE 40 MG/10 ML VIAL IVP SCH (08:32)
[2020-07-28 09:11] LABS: Anion Gap 5.9 mmol/L (4.00-12.00); Calcium 8.1 mg/dL (8.7-10.3); Carbon Dioxide 30.1 mmol/L (21.6-31.8); Magnesium 1.8 mg/dL (1.5-2.4); Non-African American GFR(CKD) 92.3 (60.0-200.0); Phosphorus 3.2 mg/dL (2.4-5.1); Potassium 3.7 mmol/L (3.5-5.5)
[2020-07-28 11:19] VITALS: BMI 21.6
[2020-07-28] MEDS: ACETAMINOPHEN TAB 325 MG TAB PO PRN ×2 (11:19→23:09)
[2020-07-28 11:44] LABS: Glucose,Whole Blood 190 mg/dL (75-99)
--- NOTE | 2020-07-28 11:53 | P.PN ---
<Allyson Liz - Last Filed: 07/28/20 11:46> Subjective Progress Note Date: 07/28/20 CHIEF COMPLAINT: Abdominal pain HISTORY OF PRESENT ILLNESS: Patient status post exploratory laparotomy with lysis of adhesions for small bowel obstruction secondary to intra-abdominal adhesions. Patient does not feel quite ready for discharge. She is complaining of a little abdominal discomfort and has been hesitant to take any pain medication. She also is complaining of hemorrhoid flareup. She did report a bowel movement today. She is afebrile. White count 4.2. She did have Adam catheter reinserted over the weekend for urinary retention. PHYSICAL EXAM: VITAL SIGNS: Reviewed. GENERAL: Well-developed in no acute distress. HEENT: No sclera icterus. Extraocular movements grossly intact. Moist buccal mucosa. Head is atraumatic, normocephalic. ABDOMEN: Soft. Incision site clean dry and intact NEUROLOGIC: Alert and oriented. Cranial nerves II through XII grossly intact. ASSESSMENT: 1. Small bowel obstruction secondary to intra-abdominal adhesions status post exploratory laparotomy with lysis of adhesions. 2. Family history significant for mother with colon cancer 3. History of diabetes mellitus type 2 4. Chronic constipation 5. History of appendectomy PLAN: -Hep-Lock IV fluids -Continue dysphagia chopped low fiber diet -Anusol suppository ordered for hemorrhoids -Tylenol as needed for pain -Dulcolax daily -Continue abdominal binder -Encouraged incentive spirometer use -Continue physical therapy -GI prophylaxis Protonix and DVT prophylaxis Lovenox -Anticipate discharge to [facility] tomorrow Physician Welder/Fabricator note has been reviewed by physician. Signing provider agrees with the documented findings, assessment, and plan of care. Objective - Vital Signs Vital signs: Vital Signs Temp 98.3 F 07/28/20 05:00 Pulse 83 07/28/20 05:00 Resp 16 07/28/20 05:00 BP 114/43 07/28/20 05:00 Pulse Ox 92 L 07/28/20 05:00 Intake & Output 07/27/20 07/28/20 07/28/20 18:59 06:59 18:59 Intake Total 725 575 Output Total 1450 Balance 725 575 -1450 Weight 57.2 kg Intake: Intake, IV Titration 725 575 Amount Magnesium Sulfate-D5w Pmx 200 1 gm In Dextrose/Water 1 100ml.bag @ 100 mls/hr IVPB Q1H [facility] Rx#: [id number] Sodium Chloride 0.9% 1, 525 575 000 ml @ 50 mls/hr IV . Q20H [facility] Rx#:[id number] Output: Urine 1450 Uretheral (Adam) 1450 Other: Voiding Method Indwelling Catheter Indwelling Catheter # Bowel Movements 4 1 - Labs CBC & Chem 7: 07/28/20 04:47 07/28/20 04:47 Labs: Abnormal Lab Results - Last 24 Hours (Table) 07/27/20 07/27/20 07/27/20 Range/Units 11:56 17:33 20:37 RBC (3.80-5.40) m/uL Hgb (11.4-16.0) gm/dL Hct (34.0-46.0) % Lymphocytes # (1.0-4.8) k/uL BUN (9.0-27.0) mg/dL Creatinine (0.6-1.5) mg/dL POC Glucose (mg/dL) 212 H 214 H 162 H (75-99) mg/dL Calcium (8.7-10.3) mg/dL 07/28/20 07/28/20 07/28/20 Range/Units 04:47 04:47 07:04 RBC 2.91 L (3.80-5.40) m/uL Hgb 9.4 L (11.4-16.0) gm/dL Hct 28.2 L (34.0-46.0) % Lymphocytes # 0.7 L (1.0-4.8) k/uL BUN 6.0 L (9.0-27.0) mg/dL Creatinine 0.4 L (0.6-1.5) mg/dL POC Glucose (mg/dL) 117 H (75-99) mg/dL Calcium 8.1 L (8.7-10.3) mg/dL 07/28/20 Range/Units 11:32 RBC (3.80-5.40) m/uL Hgb (11.4-16.0) gm/dL Hct (34.0-46.0) % Lymphocytes # (1.0-4.8) k/uL BUN (9.0-27.0) mg/dL Creatinine (0.6-1.5) mg/dL POC Glucose (mg/dL) 190 H (75-99) mg/dL Calcium (8.7-10.3) mg/dL <Jose Manuel Price - Last Filed: 07/28/20 15:38> Subjective As above. Patient doing well. Tolerating diet. She is having bowel function. We'll try removing the Adam catheter once again. Anticipate transfer to rehab tomorrow. Objective - Vital Signs Vital signs: Vital Signs Temp 97.8 F 07/28/20 12:24 Pulse 82 07/28/20 12:24 Resp 16 07/28/20 12:24 BP 160/57 07/28/20 12:24 Pulse Ox 98 07/28/20 12:24 Intake & Output 07/27/20 07/28/20 07/28/20 18:59 06:59 18:59 Intake Total 725 575 Output Total 1450 Balance 725 575 -1450 Weight 57.2 kg Intake: Intake, IV Titration 725 575 Amount Magnesium Sulfate-D5w Pmx 200 1 gm In Dextrose/Water 1 100ml.bag @ 100 mls/hr IVPB Q1H [facility] Rx#: [id number] Sodium Chloride 0.9% 1, 525 575 000 ml @ 50 mls/hr IV . Q20H [facility] Rx#:[id number] Output: Urine 1450 Uretheral (Adam) 1450 Other: Voiding Method Indwelling Catheter Indwelling Catheter # Bowel Movements 4 1 - Labs CBC & Chem 7: 07/28/20 04:47 07/28/20 04:47 Labs: Abnormal Lab Results - Last 24 Hours (Table) 07/27/20 07/27/20 07/28/20 Range/Units 17:33 20:37 04:47 RBC 2.91 L (3.80-5.40) m/uL Hgb 9.4 L (11.4-16.0) gm/dL Hct 28.2 L (34.0-46.0) % Lymphocytes # 0.7 L (1.0-4.8) k/uL BUN (9.0-27.0) mg/dL Creatinine (0.6-1.5) mg/dL POC Glucose (mg/dL) 214 H 162 H (75-99) mg/dL Calcium (8.7-10.3) mg/dL 07/28/20 07/28/20 07/28/20 Range/Units 04:47 07:04 11:32 RBC (3.80-5.40) m/uL Hgb (11.4-16.0) gm/dL Hct (34.0-46.0) % Lymphocytes # (1.0-4.8) k/uL BUN 6.0 L (9.0-27.0) mg/dL Creatinine 0.4 L (0.6-1.5) mg/dL POC Glucose (mg/dL) 117 H 190 H (75-99) mg/dL Calcium 8.1 L (8.7-10.3) mg/dL Assessment and Plan (1) Small bowel obstruction Current Visit: Yes Status: Acute Code(s): K56.609 - UNSP INTESTNL OBST, UNSP TO PARTIAL VERSUS COMPLETE OBST SNOMED Code(s): 188336325
[2020-07-28] MEDS: HYDROCORTISONE SUPPOSITORY 25 MG SUPP RECTAL SCH (12:07)
--- NOTE | 2020-07-28 12:20 | P.PN ---
Subjective From records: Patient is admitted for a partial small bowel obstruction patient is passing gas does have a sluggish bowel sounds patient did have NG tube output of around 200 mL total of 800 mL since yesterday. 07/20/2020 patient had output of around 1 50 mL from the NG tube did have bowel movements and does have bowel sounds. Repeat abdominal x-ray still showing bowel obstruction. Patient blood sugars are bit low patient will be switched to D5 normal saline at 75 mL per hour. 07/21/2020 Since the imaging didn't show any significant improvement in bowel obstruction and patient has a NG tube output of 1100 last night patient will undergo laparotomy tomorrow. 07/22/2020 Patient is still having NG tube output of 202 abdominal x-ray still shows significant bowel obstruction all the abdomen is soft and does have bowel sounds. Patient probably will need laparotomy but patient the still thinking about whether to go for surgery or not Subjective 07/23/2020, today is taking care of the patient Patient is status post laparotomy with lysis of adhesion. Today is postop day #1. She still nothing by mouth, abdominal pain is controlled, NG tube is in place with more than 500 mL of dark fluid is aspirated. No bowel movement or gases. Surgery team R following the case closely and they start patient on Dulcolax rectally today. 07/24/20 Patient is sitting in chair comfortable, her abdominal pain is controlled, she still nothing by mouth, no nausea vomiting. Yesterday back in this place. Patient remains an epidural catheter and TPN. She still D5 half-normal saline at 75 mL/h CA-125 antigen and CEA are negative We'll keep close monitoring 07/25/2020 Patient still nothing by mouth, NG tube is in place and she has 150 over liquid discharge overnight. Possible NG tube will be discontinued today per surgery team Abdominal pain is controlled. No bowel movement yet. Surgery team R following the case closely 07/26/2020 Patient awake, NG tube is out. Patient feels hungry and wants to eat. She did not have bowel movements yet but she is passing gas. Adam catheter was discontinued and she was retaining urine 1000 this morning and later on was 350, we will keep checking bladder scan. Discussed with staff CBC showed improved WBC count back to normal at 3.9K, hemoglobin stable at 10.5. Glucose controlled. Creatinine is normal at 0.4. 07/27/2020 Patient is awake and alert, she tolerated liquid diet and she is been advanced to full liquid diet by surgery team. She had an enema followed by lots of her distal. She has persistent urinary retention and Adam catheter has to be placed back 07/28/2020 Patient is awake, she is tolerating diet well, IV fluids were stopped, colostomy back is working and she has bowel movement without need for enema. Abdominal pain is controlled. His catheter. Patient of recommended subacute rehab, surgical team on the case. Possible discharge in 24-48 hours if she keeps improving and stable Objective - Vital Signs Vital signs: Vital Signs Temp 98.3 F 07/28/20 05:00 Pulse 83 07/28/20 05:00 Resp 16 07/28/20 05:00 BP 114/43 07/28/20 05:00 Pulse Ox 92 L 07/28/20 05:00 Intake & Output 07/27/20 07/28/20 07/28/20 18:59 06:59 18:59 Intake Total 725 575 Output Total 1450 Balance 725 575 -1450 Weight 57.2 kg Intake: Intake, IV Titration 725 575 Amount Magnesium Sulfate-D5w Pmx 200 1 gm In Dextrose/Water 1 100ml.bag @ 100 mls/hr IVPB Q1H [facility] Rx#: [id number] Sodium Chloride 0.9% 1, 525 575 000 ml @ 50 mls/hr IV . Q20H [facility] Rx#:[id number] Output: Urine 1450 Uretheral (Adam) 1450 Other: Voiding Method Indwelling Catheter Indwelling Catheter # Bowel Movements 4 1 - Exam GENERAL: The patient is alert and oriented x3, not in any acute distress. Well developed, well nourished. HEENT: Pupils are round and equally reacting to light. EOMI. No scleral icterus. No conjunctival pallor. Normocephalic, atraumatic. No pharyngeal erythema. No thyromegaly. CARDIOVASCULAR: S1 and S2 present. No murmurs, rubs, or gallops. PULMONARY: Chest is clear to auscultation, no wheezing or crackles. -ABDOMEN: Soft, nontender, nondistended, normoactive bowel sounds. No palpable organomegaly. Abdominal incision is dry and clean MUSCULOSKELETAL: No joint swelling or deformity. EXTREMITIES: No cyanosis, clubbing, or pedal edema. NEUROLOGICAL: Gross neurological examination did not reveal any focal deficits. SKIN: No rashes. no petechiae. - Labs CBC & Chem 7: 07/28/20 04:47 07/28/20 04:47 Labs: Abnormal Lab Results - Last 24 Hours (Table) 07/27/20 07/27/20 07/28/20 Range/Units 17:33 20:37 04:47 RBC 2.91 L (3.80-5.40) m/uL Hgb 9.4 L (11.4-16.0) gm/dL Hct 28.2 L (34.0-46.0) % Lymphocytes # 0.7 L (1.0-4.8) k/uL BUN (9.0-27.0) mg/dL Creatinine (0.6-1.5) mg/dL POC Glucose (mg/dL) 214 H 162 H (75-99) mg/dL Calcium (8.7-10.3) mg/dL 07/28/20 07/28/20 07/28/20 Range/Units 04:47 07:04 11:32 RBC (3.80-5.40) m/uL Hgb (11.4-16.0) gm/dL Hct (34.0-46.0) % Lymphocytes # (1.0-4.8) k/uL BUN 6.0 L (9.0-27.0) mg/dL Creatinine 0.4 L (0.6-1.5) mg/dL POC Glucose (mg/dL) 117 H 190 H (75-99) mg/dL Calcium 8.1 L (8.7-10.3) mg/dL Assessment and Plan Assessment: -Ileus/mechanical small bowel obstruction: Status post exploratory laparotomy and lysis of adhesions. Advance diet as tolerated. -Small bilateral pleural effusions patient doesn't have any hypoxemia at this time patient will need IV fluids which were continued for now, Lower legs to 50 mL per hour -Urinary retention: Continue with Adam catheter and follow-up with urologist as an outpatient -Type 2 diabetes mellitus, blood sugars are actually low patient will be continued on D5 half-normal saline -Hyperlipidemia -DVT prophylaxis Lovenox
[2020-07-28 17:16] LABS: Glucose,Whole Blood 150 mg/dL (75-99)
[2020-07-28 21:37] LABS: Glucose,Whole Blood 213 mg/dL (75-99)
[2020-07-28] MEDS: EZETIMIBE 10 MG TAB PO SCH (22:20)
[2020-07-29 07:11] LABS: Glucose,Whole Blood 105 mg/dL (75-99)
[2020-07-29] MEDS: INSULIN ASPART (NovoLOG) 100 UNIT/ML VIAL SQ SCH ×2 (07:22→12:08)
[2020-07-29] MEDS: bisacodyL 10 MG SUPP RECTAL SCH ×2 (07:41→12:11)
[2020-07-29] MEDS: PANTOPRAZOLE 40 MG/10 ML VIAL IVP SCH (07:42)
[2020-07-29] MEDS: ENOXAPARIN 40 MG/0.4 ML SYRINGE SQ SCH (07:42)
[2020-07-29] MEDS: HYDROCORTISONE SUPPOSITORY 25 MG SUPP RECTAL SCH (08:10)
[2020-07-29 09:43] LABS: African American GFR (CKD) 99.5 (60.0-200.0); Anion Gap 5.1 mmol/L (4.00-12.00); Calcium 8.1 mg/dL (8.7-10.3); Carbon Dioxide 32.9 mmol/L (21.6-31.8); Magnesium 1.5 mg/dL (1.5-2.4); Non-African American GFR(CKD) 85.8 (60.0-200.0); Phosphorus 3.9 mg/dL (2.4-5.1); Potassium 3.6 mmol/L (3.5-5.5)
[2020-07-29] MEDS: MAGNESIUM SULFATE-D5W PMX 1 GM in DEXTROSE/WATER 1 100ML.BAG IVPB SCH ×2 (11:19→12:08)
[2020-07-29 11:33] LABS: Glucose,Whole Blood 236 mg/dL (75-99)
[2020-07-29 11:54] VITALS: BP 155/61; PULSE 73; RESP 16; TEMP 97.8
[2020-07-29] MEDS: ACETAMINOPHEN TAB 325 MG TAB PO PRN (12:09)
[2020-07-29] MEDS ORDERED: NYSTATIN 100,000 UNIT/ML SUSP 500,000 UNIT/5 ML CUP PO SCH (13:00)
--- NOTE | 2020-07-29 13:56 | P.DS ---
Providers Date of admission: 07/17/20 21:25 Attending physician: Robb Jovel MD Consults: 07/17/20 21:28 Consult Physician Urgent Consulting Provider: Jose Manuel Price Consult Reason/Comments: acute small bowel obstruction Do you want consulting provider notified?: Yes Primary care physician: Zulema Perdomo Hospital Course: Diagnoses: -Ileus/mechanical small bowel obstruction: Status post exploratory laparotomy and lysis of adhesions on 07/22 -Small bilateral pleural effusions -Urinary retention: Continue with Adam catheter and follow-up with urologist as an outpatient -Type 2 diabetes mellitus -Hyperlipidemia Hospital course: 81-year-old female came in with compensative lower abdominal pain crampy in nature 10 severity. Along associate nausea vomiting. Patient was still having NG tube output,abdominal x-ray still shows significant bowel obstruction. Eventually patient underwent exploratory laparotomy and lysis of adhesions on 07/[address] Ordonez. Patient monitored closely post operatively, she had a slow course of recovery. Eventually patient colostomy back was working with regular stool. Abdominal pain resolved or minimal. She tolerates diet. Adam catheter has to be reinserted due to urinary retention, she will need to follow up with urologist as an outpatient, informed with the same and she agrees to call and make appointment. Surgery team are following the case closely and eventually they cleared her for discharge. Problems and management plan were discussed with the patient and he verbalized understanding and acceptance. Son was at bedside and all their questions were answered Patient was found stable and can be discharged home however he needs follow-up as an outpatient. Patient was instructed to follow up with PCP Dr. Aguilar within one week and patient agrees. Also patient was instructed to follow up with Dr. Stevens 10 days. Gen: patient is a AAOx3, no distress CVS: S1-S2, RRR, no murmur Lungs: B/L CTA, no wheezing Abdomen: soft, no distention, no tenderness, positive bowel sounds Extremity: no leg edema or induration Time spent more than 35 minutes Patient Condition at Discharge: Stable Plan - Discharge Summary New Discharge Prescriptions: New Hydrocortisone Suppository [Anusol-Hc] 25 mg RECTAL DAILY 5 Days supp bisacodyL [Dulcolax] 10 mg RECTAL DAILY PRN supp PRN Reason: Constipation Nystatin 100,000 Unit/ml Susp [Mycostatin Oral Susp] 500,000 unit PO QID ml INSULIN ASPART (NovoLOG) [NovoLOG (formulary)] 0 unit SQ ACHS vial Omeprazole 40 mg PO DAILY #30 capsule. Acetaminophen Tab [Tylenol] 650 mg PO Q4HR PRN tab PRN Reason: Fever And/ Or Pain Ondansetron HCl [Zofran] 4 mg PO Q8H PRN #30 tab PRN Reason: Nausea And Vomiting Continue sitaGLIPtin [Januvia] 50 mg PO DAILY Ezetimibe [Zetia] 10 mg PO HS Acarbose [Precose] 25 mg PO DAILY Vits A,C,E/Lutein/Minerals [Ocuvite with Lutein Tablet] 1 tab PO DAILY@1500 Multivit-Min/FA/Lycopen/Lutein [Centrum Silver Tablet] 1 tab PO DAILY@1300 Changed Pioglitazone [Actos] 15 mg PO DAILY #0 Discharge Medication List Acarbose [Precose] 25 mg PO DAILY 07/07/19 [History] Ezetimibe [Zetia] 10 mg PO HS 07/07/19 [History] sitaGLIPtin [Januvia] 50 mg PO DAILY 07/07/19 [History] Multivit-Min/FA/Lycopen/Lutein [Centrum Silver Tablet] 1 tab PO DAILY@1300 07/17/20 [History] Vits A,C,E/Lutein/Minerals [Ocuvite with Lutein Tablet] 1 tab PO DAILY@1500 07/17/20 [History] Acetaminophen Tab [Tylenol] 650 mg PO Q4HR PRN tab 07/29/20 [Rx] Hydrocortisone Suppository [Anusol-Hc] 25 mg RECTAL DAILY 5 Days supp 07/29/20 [Rx] INSULIN ASPART (NovoLOG) [NovoLOG (formulary)] 0 unit SQ ACHS vial 07/29/20 [Rx] Nystatin 100,000 Unit/ml Susp [Mycostatin Oral Susp] 500,000 unit PO QID ml 07/29/20 [Rx] Omeprazole 40 mg PO DAILY #30 capsule. 07/29/20 [Rx] Ondansetron HCl [Zofran] 4 mg PO Q8H PRN #30 tab 07/29/20 [Rx] Pioglitazone [Actos] 15 mg PO DAILY #0 07/29/20 [Rx] bisacodyL [Dulcolax] 10 mg RECTAL DAILY PRN supp 07/29/20 [Rx] Follow up Appointment(s)/Referral(s): Jon Carr MD [STAFF PHYSICIAN] - 1 Week (Urologist, for your urine retention) Zulema Perdomo MD [Primary Care Provider] - 1-2 days Activity/Diet/Wound Care/Special Instructions: Regular diet Activity as tolerated Discharge Disposition: TRANSFER TO SNF/ECF
--- NOTE | 2020-07-29 14:21 | P.PN ---
Subjective Progress Note Date: 07/29/20 CHIEF COMPLAINT: Abdominal pain HISTORY OF PRESENT ILLNESS: Patient status post exploratory laparotomy with lysis of adhesions for small bowel obstruction secondary to intra-abdominal adhesions. Patient is feeling better today. She is to be discharged to [facility]. She is having bowel movements. Denies any nausea or vomiting. Tolerating a low fiber diet. She is afebrile magnesium 1.5 PHYSICAL EXAM: VITAL SIGNS: Reviewed. GENERAL: Well-developed in no acute distress. HEENT: No sclera icterus. Extraocular movements grossly intact. Moist buccal mucosa. Head is atraumatic, normocephalic. ABDOMEN: Soft. Incision site clean dry and intact NEUROLOGIC: Alert and oriented. Cranial nerves II through XII grossly intact. ASSESSMENT: 1. Small bowel obstruction secondary to intra-abdominal adhesions status post exploratory laparotomy with lysis of adhesions. 2. Family history significant for mother with colon cancer 3. History of diabetes mellitus type 2 4. Chronic constipation 5. History of appendectomy PLAN: -Patient is surgically stable for discharge to [facility] -Patient follow-up with Dr. Price in 10 days -Continue low fiber diet -Anusol suppository ordered for hemorrhoids -Dulcolax daily -Continue abdominal binder -Encouraged incentive spirometer use -GI prophylaxis Protonix and DVT prophylaxis Lovenox Physician Certified Driver Examiner note has been reviewed by physician. Signing provider agrees with the documented findings, assessment, and plan of care. Objective - Vital Signs Vital signs: Vital Signs Temp 97.8 F 07/29/20 11:53 Pulse 73 07/29/20 11:53 Resp 16 07/29/20 11:53 BP 155/61 07/29/20 11:53 Pulse Ox 96 07/29/20 11:53 Intake & Output 07/28/20 07/29/20 07/29/20 18:59 06:59 18:59 Intake Total 200 1830 Output Total 2900 1 501 Balance -2700 -1 1329 Weight 57.2 kg Intake: Intake, IV Titration 200 650 Amount Sodium Chloride 0.9% 1, 200 000 ml @ 50 mls/hr IV . Q20H [facility] Rx#:[id number] Sodium Chloride 0.9% 100 650 ml @ 0 mls/hr IV .STK-MED ONE with ceFAZolin 1,000 mg Rx#:[id number] Oral 1180 Output: Urine 2900 500 Uretheral (Adam) 2900 Post Void Residual 0 Stool 1 1 Other: Voiding Method Indwelling Catheter Toilet Toilet # Voids 1 3 # Bowel Movements 1 - Labs CBC & Chem 7: 07/28/20 04:47 07/29/20 05:47 Labs: Abnormal Lab Results - Last 24 Hours (Table) 07/28/20 07/28/20 07/29/20 Range/Units 17:14 21:07 05:47 Carbon Dioxide 32.9 H (21.6-31.8) mmol/L BUN 7.0 L (9.0-27.0) mg/dL Creatinine 0.5 L (0.6-1.5) mg/dL POC Glucose (mg/dL) 150 H 213 H (75-99) mg/dL Calcium 8.1 L (8.7-10.3) mg/dL 07/29/20 07/29/20 Range/Units 07:09 11:31 Carbon Dioxide (21.6-31.8) mmol/L BUN (9.0-27.0) mg/dL Creatinine (0.6-1.5) mg/dL POC Glucose (mg/dL) 105 H 236 H (75-99) mg/dL Calcium (8.7-10.3) mg/dL
--- NOTE | 2020-07-30 15:26 | CDI ---
Documentation Clarification Form Date: 07/30/20 From: Lauren Starks CCS Phone: If you have a question about this query, please contact Natalie Pastor, Car[employer] Packer at [phone] between 8am and 5pm. Admit Date: 07/17/20 Discharge Date:07/29/20 Patient Name: Mely Bass Visit Number: [id number] ATTENTION: The Clinical Documentation Specialists (CDI) and [facility] Coding Staff appreciate your assistance in clarifying documentation. Please respond to the clarification below the line at the bottom and electronically sign. The CDI & [facility] Coding staff will review the response and follow-up if needed. Please note: Queries are made part of the Legal Health Record. If you have any questions, please contact the author of this message via ITS. Dear Dr. Pop, Documentation states: Albumin 3.10, 2.90, 2.70- Total Protein 4.4, 4.2, 3.9 History/Risk Factors: NPO/Clear liquid x 8 days, Bowel obstruction, DM, HTN, Hyponatremia Clinical indicators: Moderate temoral and clavicle muscle wasting, Underweight Abnormal: Albumin 3.10, 2.90, 2.70- Total Protein 4.4, 4.2, 3.9 BMI: 21 Consult: Dietary 07/23, 07/25, 07/28 Treatment: TPN Clinical significance of diagnostic testing and treatment CANNOT be assumed or coded without physician documentation of significance if any. Please clarify what abnormal laboratory signifies: Malnutrition Mild Moderate Severe Underweight Disease process, please specify Abnormal Lab Value Unable to determine Other, please specify Unable to determine MTDD
--- NOTE | 2020-08-05 09:36 | CDI ---
Documentation Clarification Form Date: 07/28/2020 08:12:00 AM From: Ciara GreenbergJESSA corado, CCDS Admit Date: 07/17/2020 09:25:00 PM Patient Name: Mely Bass Visit Number: [id number] Discharge Date: 07/29/2020 03:45:00 PM ATTENTION: The Clinical Documentation Specialists (CDI) and [facility] Coding Staff appreciate your assistance in clarifying documentation. Please respond to the clarification below the line at the bottom and electronically sign. The CDI & [facility] Coding staff will review the response and follow-up if needed. Please note: Queries are made part of the Legal Health Record. If you have any questions, please contact the author of this message via ITS. Dr. Jose Manuel Price: Per the 07/26 Surgeon's Progress Note: "Some urinary retention." "Abdomen: soft, mild distention, minimal tenderness...". Assessment: "May require Adam catheter replacement because of urinary retention." Per the 07/27 Medical Management Progress Note: "She has persistent urinary retention and Adam catheter has to be placed back." Assessment: "Urinary retention: Continue with Adam catheter and follow-up with urologist as an outpatient." Patients Admitting Diagnosis: Small Bowel Obstruction Post-Operative Diagnosis: Small bowel obstruction secondary to intra-abdominal adhesions. Procedure performed: Exploratory laparotomy with lysis of adhesions. History/Risk Factors: DM I, Hyperlipidemia. Surgery History: Appendectomy & Hysterectomy. Clinical Indicators: Presented to the ED on 07/17 with abdominal pain, nausea & vomiting via EMS. Treatment 07/17 ED: IV Fentanyl, IV fluid bolus 500 mls @ 999 mls/hr, IV Morphine, IV Zofran, IV fluid rate 1,000 mls @ 100 mls/hr. NGT placed. To OR on 07/22. Postoperatively: TPN, IV MagSulfate, IV Kcl, IV Dilaudid. Epidural & Adam catheter & NGT removed on 07/25. Adam catheter replaced on 07/27. In order to accurately reflect this patients severity of illness, please clarify if the patient's urinary retention: Is a complication of surgical procedure Is an expected outcome of the surgical procedure Other cause please specify: Unable to determine (Last Revision: December 2019) _Urinary retention is not a complication of the procedure. [facility]
== END 2020-07-29 15:45 | DRG 336 ==
LOC: EC 19:16 → 6NMEDSUR 21:25
PROVIDERS: ADMIT Internal Medicine; ATTEND Internal Medicine
PROC: 0D9670Z Drainage of Stomach with Drainage Device, Via Natural or Artificial Opening (ICD-10-PCS; 2020-07-17)
PROC: 0DN80ZZ Release Small Intestine, Open Approach (ICD-10-PCS; principal; 2020-07-22 07:30)
PROC: 3E0336Z Introduction of Nutritional Substance into Peripheral Vein, Percutaneous Approach (ICD-10-PCS; 2020-07-24)
DX: K56.51 Intestinal adhesions [bands], with partial obstruction (principal); R18.8 Other ascites; E87.1 Hypo-osmolality and hyponatremia; K46.0 Unspecified abdominal hernia with obstruction, without gangrene; Z20.828 Contact with and (suspected) exposure to other viral communicable diseases; E11.65 Type 2 diabetes mellitus with hyperglycemia; E11.9 Type 2 diabetes mellitus without complications; E78.5 Hyperlipidemia, unspecified; E86.1 Hypovolemia; K59.09 Other constipation; I10 Essential (primary) hypertension; E87.6 Hypokalemia; E83.42 Hypomagnesemia; R33.9 Retention of urine, unspecified; K64.9 Unspecified hemorrhoids; Z71.3 Dietary counseling and surveillance; Z79.84 Long term (current) use of oral hypoglycemic drugs; Z79.899 Other long term (current) drug therapy; Z85.828 Personal history of other malignant neoplasm of skin; Z90.49 Acquired absence of other specified parts of digestive tract; Z90.710 Acquired absence of both cervix and uterus; Z91.81 History of falling; Z80.0 Family history of malignant neoplasm of digestive organs
CPT/HCPCS: 36415; 74018; 74019; 74177; 80048; 80053; 81001; 82150; 82330; 82378; 83605; 83690; 83735; 84100; 84132; 84478; 84484; 85025; 85027; 85610; 85730; 86304; 86850; 86870; 86880; 86900; 86901; 93005; 94760; 96374; 96375; 99285